=== PATIENT | female | born 1960 | race Caucasian/White ===

== ENCOUNTER 2016-08-18 00:43 | Emergency (ER) | payer OTHER ==
[~2016-08-18] VITALS: Ht 149.9 cm; Wt 68.0 kg
[~2016-08-18 00:43] MED LIST: ASPI81TA44 PO; ATOR10TA60 PO; ATOR40TA59 PO; BISA5TAB4 PO; CEFP200T PO; CEFU500T46 PO; CHOL100013 PO; CHOL4POW2 PO; CYCL10TA2 PO; DILT30TA26 PO; DOXY100C2 PO; FAMO20TA5 PO; FERR325T31 PO; FLUT1DIS3 IH; GLIM2TAB2 PO; HYDR-2666 PO; HYDR-2762 PO; HYDR-971 PO; HYDR12.53 PO; HYDR12.58 PO; INSU100V13 SQ; Ibuprofen PO; LEVO150T PO; LEVO150T5 PO; LEVO200T5 PO; LEVO750T31 PO; METF500T PO; METF500T4 PO; METO50TA2 PO; OMEP40CA5 PO; OXYC5TAB PO; PRAM0.255 PO; PRED20TA PO; PROVENTIL HFA6.7 GM IH; SIMV20TA3 PO
[2016-08-18 01:00] VITALS: BP 129/65
[2016-08-18] MEDS ORDERED: IPRATRPIUM/ALBUTEROL 0.5/2.5MG 3 ML NEBU. NEB ONE ×2 (01:00→01:15)
[2016-08-18 01:29] LABS: BASO % 1 % (0-3); EOS % 3 % (0-3); HEMATOCRIT 36.1 % (36.0-47.0); HEMOGLOBIN 11.6 g/dL (12.0-15.5); LYMPH # 3.7 x10^3/uL (1.0-4.8); LYMPH % 40 % (24-48); MEAN CORPUSCULAR HEMOGLOBIN 26 pg (25-35); MEAN CORPUSCULAR HGB CONC 32 g/dL (31-37); MEAN CORPUSCULAR VOLUME 79 fL (79-100); MONO % 6 % (0-9); NEUT % 51 % (31-73); PLATELET COUNT 259 x10^3/uL (140-400); RED BLOOD COUNT 4.55 x10^6/uL (3.50-5.40); RED CELL DISTRIBUTION WIDTH 14.5 % (11.5-14.5); WHITE BLOOD COUNT 9.2 x10^3/uL (4.0-11.0)
--- NOTE | 2016-08-18 01:33 | PHYS DOC ---
Past Medical History Past Medical History: Anemia, Anxiety, Asthma, COPD, Diabetes-Type II, [place], Stroke Additional Past Medical Histor: Cranial bleed Past Surgical History: Cholecystectomy, , Hysterectomy Additional Past Surgical Histo: IVC filter placed after stroke, Cardiac Cath Alcohol Use: None Drug Use: None Adult General Chief Complaint Chief Complaint: SHORTNESS OF BREATH HPI HPI 56-year-old female presenting to the emergency department today with shortness of breath and wheezing over the past 24 hours. She has history of COPD. She received a breathing treatment prior to arrival. Location lungs. Duration intermittent. Alleviated by nebulizers. No exacerbating factors present. She denies hemoptysis unilateral leg swelling personal or family history of blood clotting disorder. Review of systems is negative for chest pain abdominal pain nausea vomiting diaphoresis fevers chills. All other review of systems is negative unless otherwise noted in history of present illness. Review of Systems Review of Systems SEE ABOVE. Current Medications Current Medications Current Medications Medications (Trade) Dose Ordered Sig/Kyle Start Time Stop Time Status Last Admin Dose Admin Albuterol/ Ipratropium (Duoneb) 3 ml 1X ONCE 08/18/16 01:15 08/18/16 01:17 DC 08/18/16 01:13 3 ML Allergies Allergies Allergies Coded Allergies Type Severity Reaction Last Updated Verified Penicillins Allergy Intermediate Seizure, Rash 06/12/16 Yes aspirin Adverse Reaction Intermediate Nausea 06/12/16 Yes codeine Adverse Reaction Intermediate Nausea 06/12/16 Yes Physical Exam Physical Exam Constitutional: Well developed, well nourished, no acute distress, non-toxic appearance. [] HENT: Normocephalic, atraumatic, bilateral external ears normal, oropharynx moist, no oral exudates, nose normal. [] Eyes: PERRLA, EOMI, conjunctiva normal, no discharge. [] Neck: Normal range of motion, no tenderness, supple, no stridor. [] Cardiovascular:Heart rate regular rhythm, no murmur [] Lungs & Thorax: Wheezing bilaterally. Abdomen: Bowel sounds normal, soft, no tenderness, no masses, no pulsatile masses. [] Skin: Warm, dry, no erythema, no rash. [] Back: No tenderness, no CVA tenderness. [] Extremities: No tenderness, no cyanosis, no clubbing, ROM intact, no edema. [] Neurologic: Alert and oriented X 3, normal motor function, normal sensory function, no focal deficits noted. [] Psychologic: Affect normal, judgement normal, mood normal. [] Current Patient Data Vital Signs Vital Signs Date Time Temp Pulse Resp B/P Pulse Ox O2 Delivery O2 Flow Rate FiO2 08/18/16 01:13 97 Room Air 08/18/16 01:00 98.3 75 20 129/65 98.3 Lab Values Laboratory Tests Test 08/18/16 01:20 White Blood Count 9.2x10^3/uL (4.0-11.0) Red Blood Count 4.55x10^6/uL (3.50-5.40) Hemoglobin 11.6g/dL (12.0-15.5) L Hematocrit 36.1% (36.0-47.0) Mean Corpuscular Volume 79fL (79-100) Mean Corpuscular Hemoglobin 26pg (25-35) Mean Corpuscular Hemoglobin Concent 32g/dL (31-37) Red Cell Distribution Width 14.5% (11.5-14.5) Platelet Count 259x10^3/uL (140-400) Neutrophils (%) (Auto) 51% (31-73) Lymphocytes (%) (Auto) 40% (24-48) Monocytes (%) (Auto) 6% (0-9) Eosinophils (%) (Auto) 3% (0-3) Basophils (%) (Auto) 1% (0-3) Neutrophils # (Auto) 4.6x10^3uL (1.8-7.7) Lymphocytes # (Auto) 3.7x10^3/uL (1.0-4.8) Monocytes # (Auto) 0.5x10^3/uL (0.0-1.1) Eosinophils # (Auto) 0.3x10^3/uL (0.0-0.7) Basophils # (Auto) 0.0x10^3/uL (0.0-0.2) Sodium Level 142mmol/L (136-145) Potassium Level 3.2mmol/L (3.5-5.1) L Chloride Level 104mmol/L (98-107) Carbon Dioxide Level 26mmol/L (21-32) Anion Gap 12 (6-14) Blood Urea Nitrogen 15mg/dL (7-20) Creatinine 0.8mg/dL (0.6-1.0) Estimated GFR (Cockcroft-Gault) 74.5 Glucose Level 144mg/dL (70-99) H Calcium Level 8.6mg/dL (8.5-10.1) Total Bilirubin 0.4mg/dL (0.2-1.0) Direct Bilirubin 0.2mg/dL (0.0-0.2) Aspartate Amino Transferase (AST) 12U/L (15-37) L Alanine Aminotransferase (ALT) 17U/L (14-59) Alkaline Phosphatase 96U/L (46-116) Troponin I Quantitative < 0.017ng/mL (0.000-0.055) DU-Ylc-U-Type Natriuretic Peptide 16pg/mL (0-124) Total Protein 7.4g/dL (6.4-8.2) Albumin 3.7g/dL (3.4-5.0) Lipase 144U/L (73-393) Laboratory Tests 08/18/16 01:20 Laboratory Tests 08/18/16 01:20 EKG EKG [] Radiology/Procedures Radiology/Procedures [] Chest x-ray showed mild blurring of the right cardiac border suggestive of infiltrate. Course & Med Decision Making Course & Med Decision Making Pertinent Labs and Imaging studies reviewed. (See chart for details) [] 56-year-old female presenting the emergency department with wheezing and shortness of breath. Afebrile with a normal heart rate. She was given duo nebs in the emergency department which improved her symptoms. She was subsequent discharged home with steroids and abx and instructed to use her inhaler as needed. Follow up with PCP in 2-3 days. [id number] discharge instructions and return precautions given. Patient comfortable plan. Dragon Disclaimer Dragon Disclaimer This electronic medical record was generated, in whole or in part, using a voice recognition dictation system. Departure Departure Impression: Primary Impression: COPD exacerbation Disposition: HOME, SELF-CARE Condition: STABLE Referrals: RANJIT MONAE MD (PCP) Patient Instructions: Chronic Obstructive Pulmonary Disease Exacerbation Additional Instructions: Thank you for allowing us to participate in your care today. Followup with your primary care physician in 3 days if your symptoms do not improve. If you do not have a primary care provider you can ask for a list of our primary care providers. Return to the emergency department you have any new or concerning findings. This should be evaluated by the primary care physician and any necessary consulting services for continued management within a few days after discharge. Return to emergency room if you have any new or concerning symptoms including but not limited to fever, chills, nausea, vomiting, intractable pain, any new rashes, chest pain, shortness of air, uncontrolled bleeding, difficulty breathing, and/or vision loss. You may have been prescribed medication that can change in your level of thinking and ability to operate machinery. These medications include hydrocodone and Ativan. Also, Benadryl has been known to do this as well. Be sure to check with your pharmacist and ask if the medications you've prescribed can affect your level of consciousness. I recommend not operating heavy machinery or driving while on medication such as these. Scripts Azithromycin (Azithromycin Tablet)250 Mg Tablet1 Pkg PO UD #6 TAB Prov:SE KEY MD 08/18/16 Prednisone 50 Mg [id number] Mg PO DAILY #5 TAB Prov:SE KEY MD 08/18/16 SE KEY MD Aug 18, 2016 01:33
[2016-08-18 01:50] LABS: CALCIUM 8.6 mg/dL (8.5-10.1); CREATININE 0.8 mg/dL (0.6-1.0); GFR 74.5; POTASSIUM 3.2 mmol/L (3.5-5.1)
[2016-08-18 02:04] LABS: ALBUMIN 3.7 g/dL (3.4-5.0); DIRECT BILIRUBIN 0.2 mg/dL (0.0-0.2); TOTAL BILIRUBIN 0.4 mg/dL (0.2-1.0); TOTAL PROTEIN 7.4 g/dL (6.4-8.2)
[2016-08-18] MEDS ORDERED: AZIT250T6 PO (02:58)
[2016-08-18] MEDS ORDERED: PRED50TA PO (02:58)
[2016-08-18] MEDS ORDERED: LIDOCAINE 1% / SOD BICARB 8.4% 20 ML VIAL. IJ ONE (03:30)
--- NOTE | 2016-08-18 06:15 | EKG ---
[facility] [address] [place] [address] Test Date: 2016-08-18 Test Time: 01:01:20 Pat Name: ALLISON CLIFTON Department: Room: Gender: F Entry Level Account Executive: : 1960 Requested By: SE KEY Order Number: [id number] Reading MD: Measurements Intervals [place] Rate: 78 P: 34 [place]: 194 QRS: 14 QRSD: 86 T: 45 QT: 382 QTc: 439 Interpretive Statements SINUS RHYTHM QRS(T) CONTOUR ABNORMALITY CONSIDER ANTEROLATERAL MYOCARDIAL DAMAGE POSSIBLY ABNORMAL ECG RI6.01 No previous ECG available for comparison
--- NOTE | 2016-08-18 07:13 | RAD ---
Portable chest, 08/18/2016: History: Shortness of breath, chest pain Comparison is made to a study from 03/17/2016. The heart size and pulmonary vascularity are normal. The patient is rotated to the right. There is a retrocardiac mass compatible with a small hiatal hernia. No pulmonary infiltrates are seen. There is no evidence of pleural fluid. IMPRESSION: 1. Small hiatal hernia. 2. No acute cardiopulmonary abnormality is detected.
== END 2016-08-18 04:58 | disposition home or self-care (01) ==
LOC: ER 00:43
DX: J44.1 Chronic obstructive pulmonary disease with (acute) exacerbation (principal); E11.9 Type 2 diabetes mellitus without complications; J45.909 Unspecified asthma, uncomplicated; F41.9 Anxiety disorder, unspecified; Z86.73 Personal history of transient ischemic attack (TIA), and cerebral infarction without residual deficits; Z86.2 Personal history of diseases of the blood and blood-forming organs and certain disorders involving the immune mechanism; Z86.69 Personal history of other diseases of the nervous system and sense organs; Z90.49 Acquired absence of other specified parts of digestive tract; Z90.710 Acquired absence of both cervix and uterus; Z98.890 Other specified postprocedural states; Z88.0 Allergy status to penicillin; Z88.6 Allergy status to analgesic agent; Z88.5 Allergy status to narcotic agent
CPT/HCPCS: 36415; 71010; 80048; 80076; 83690; 83880; 84484; 85027; 93005; 94250; 94640; 99285; J7620

== ENCOUNTER → 2016-11-07 | Outpatient (CLI) | payer OTHER ==
[2016-09-02 14:20] VITALS: BP 129/67
[~2016-11-07] MED LIST changes: +AZIT250T6 PO; +FERR-36 PO; -FERR325T31 PO; -HYDR-2666 PO; +HYDR-2758 PO; +LEVO75TA5 PO; +PRED50TA PO; +SYNT
--- NOTE | 2016-11-07 13:30 | RAD ---
Indication: Abdominal pain and constipation. Axial imaging through the pelvis was performed without contrast. Sagittal and coronal reformations were also performed. There appears to be a midline fat-containing hernia. There is an IVC filter noted within the IVC just below the level of the renal veins. The aorta is calcified but nonaneurysmal. There is a tiny fat-containing umbilical hernia. The small and large bowel loops are normal caliber. No free fluid is detected. The bladder is unremarkable. No lymphadenopathy is seen. Impression: Midline ventral hernia containing fat as well as small fat-containing umbilical hernia. The study is otherwise unremarkable. PQRS Compliance Statement: One or more of the following individualized dose reduction techniques were utilized for this examination: 1. Automated exposure control 2. Adjustment of the mA and/or kV according to patient size 3. Use of iterative reconstruction technique
== END | disposition home or self-care (01) ==
LOC: CT 10:50
PROVIDERS: ATTEND Internal Medicine
DX: K59.00 Constipation, unspecified (principal); K43.9 Ventral hernia without obstruction or gangrene; K42.9 Umbilical hernia without obstruction or gangrene
CPT/HCPCS: 72192

== ENCOUNTER 2016-11-17 07:22 | Inpatient (IN) | payer OTHER ==
[~2016-11-17] VITALS: Ht 149.9 cm; Wt 68.0 kg
[2016-11-17] MEDS ORDERED: IPRATRPIUM/ALBUTEROL 0.5/2.5MG 3 ML NEBU. NEB ONE (07:30)
[2016-11-17] MEDS ORDERED: methylPREDNISolone SOD SUCC PF 125 MG/2 ML VIAL. IV ONE (07:30)
--- NOTE | 2016-11-17 07:34 | ED.ADGEN ---
Past Medical History Past Medical History: Anemia, Anxiety, Asthma, COPD, Diabetes-Type II, [place], Stroke Additional Past Medical Histor: Cranial bleed Past Surgical History: Cholecystectomy, , Hysterectomy Additional Past Surgical Histo: IVC filter placed after stroke, Cardiac Cath Alcohol Use: None Drug Use: None Adult General Chief Complaint Chief Complaint: SHORTNESS OF BREATH HPI HPI Patient is a 56 year old woman, history of hemorrhagic stroke, type 2 diabetes mellitus, hypertension, COPD, CAD, who presents to the emergency department via EMS from her nursing facility with a complaint of shortness of breath and wheezing. Patient states that she became short of breath yesterday, 2-3 today with family. She states that the symptoms are consistent with her typical COPD exacerbations. She stated she takes prednisone daily, and also breathing treatments daily. Her last nebulizer treatment at the facility was at 4:00 this morning, she states it was not helping, so EMS was called this morning, and they will administered a DuoNeb en route to the ED. Patient states that she is having some chest tightness which is consistent with her typical COPD symptoms. She denies any fevers or chills, any nausea or vomiting, any chest pain with radiation, any weakness, numbness, tingling, sick contacts or exposures. She states that she does have a cough that is productive of the morning, but there is no change from her typical symptoms. No swelling of the extremities. No recent antibiotic use. Patient's central office repairer is Dr. Dutta. Review of Systems Review of Systems Constitutional: Denies fever or chills. [] Eyes: Denies change in visual acuity. [] HENT: Denies nasal congestion or sore throat. [] Respiratory: Shortness of breath, cough productive of white sputum. Cardiovascular: Chest tightness, with cough, no edema.] GI: Denies abdominal pain, nausea, vomiting, bloody stools or diarrhea. [] : Denies dysuria. [] Musculoskeletal: Denies back pain or joint pain. [] Integument: Denies rash. [] Neurologic: Denies headache, focal weakness or sensory changes. [] Endocrine: Denies polyuria or polydipsia. [] Lymphatic: Denies swollen glands. [] Psychiatric: Denies depression or anxiety. [] Current Medications Current Medications Current Medications Medications (Trade) Dose Ordered Sig/Kyle Start Time Stop Time Status Last Admin Dose Admin Albuterol/ Ipratropium (Duoneb) 3 ml 1X ONCE 11/17/16 07:30 11/17/16 07:33 DC 11/17/16 07:54 3 ML Methylprednisolone Sodium Succinate (SOLU-Medrol 125MG VIAL) 125 mg 1X ONCE 11/17/16 07:30 11/17/16 07:33 DC 11/17/16 08:27 125 MG Allergies Allergies Allergies Coded Allergies Type Severity Reaction Last Updated Verified Penicillins Allergy Intermediate Seizure, Rash 06/12/16 Yes I S O L A T I O N *CONTACT* Allergy Unknown 09/01/16 Yes aspirin Adverse Reaction Intermediate Nausea 06/12/16 Yes codeine Adverse Reaction Intermediate Nausea 06/12/16 Yes Physical Exam Physical Exam Constitutional: Well developed, well nourished, no acute distress, non-toxic appearance. [] HENT: Normocephalic, atraumatic, bilateral external ears normal, oropharynx moist, no oral exudates, nose normal. [] Eyes: PERRLA, EOMI, conjunctiva normal, no discharge. [] Neck: Normal range of motion, no tenderness, supple, no stridor. [] Cardiovascular:Heart rate regular rhythm, no murmur, S1, S2, no rubs or gallops. [] Lungs & Thorax: Patient with scattered wheezing and coarse breath sounds noted bilaterally throughout the lung hayes. No chest or crepitus or tenderness. [] Abdomen: Bowel sounds normal, soft, no rebound, rigidity, no guarding, no tenderness, no masses, no pulsatile masses. [] Skin: Warm, dry, no erythema, no rash. [] Back: No tenderness, no CVA tenderness. [] Extremities: No tenderness, no cyanosis, no clubbing, ROM intact, no edema. Negative Homans sign. Mild muscle wasting noted in lower extremity. [] Neurologic: Alert and oriented X 3, normal motor function, normal sensory function, no focal deficits noted. [] Psychologic: Affect normal, judgement normal, mood normal. [] Current Patient Data Vital Signs Vital Signs Date Time Temp Pulse Resp B/P (MAP) Pulse Ox O2 Delivery O2 Flow Rate FiO2 11/17/16 08:24 70 16 106/66 (79) 95 Room Air 11/17/16 07:34 98.3 98.3 Lab Values Laboratory Tests Test 11/17/16 08:10 White Blood Count 7.4 x10^3/uL (4.0-11.0) Red Blood Count 3.95 x10^6/uL (3.50-5.40) Hemoglobin 10.2 g/dL (12.0-15.5) L Hematocrit 30.9 % (36.0-47.0) L Mean Corpuscular Volume 78 fL (79-100) L Mean Corpuscular Hemoglobin 26 pg (25-35) Mean Corpuscular Hemoglobin Concent 33 g/dL (31-37) Red Cell Distribution Width 15.9 % (11.5-14.5) H Platelet Count 260 x10^3/uL (140-400) Neutrophils (%) (Auto) 50 % (31-73) Lymphocytes (%) (Auto) 41 % (24-48) Monocytes (%) (Auto) 6 % (0-9) Eosinophils (%) (Auto) 2 % (0-3) Basophils (%) (Auto) 1 % (0-3) Neutrophils # (Auto) 3.7 x10^3uL (1.8-7.7) Lymphocytes # (Auto) 3.0 x10^3/uL (1.0-4.8) Monocytes # (Auto) 0.5 x10^3/uL (0.0-1.1) Eosinophils # (Auto) 0.1 x10^3/uL (0.0-0.7) Basophils # (Auto) 0.0 x10^3/uL (0.0-0.2) Sodium Level 144 mmol/L (136-145) Potassium Level 3.5 mmol/L (3.5-5.1) Chloride Level 106 mmol/L (98-107) Carbon Dioxide Level 28 mmol/L (21-32) Anion Gap 10 (6-14) Blood Urea Nitrogen 14 mg/dL (7-20) Creatinine 0.8 mg/dL (0.6-1.0) Estimated GFR (Cockcroft-Gault) 74.5 BUN/Creatinine Ratio 18 (6-20) Glucose Level 123 mg/dL (70-99) H Calcium Level 7.8 mg/dL (8.5-10.1) L Total Bilirubin 0.3 mg/dL (0.2-1.0) Aspartate Amino Transferase (AST) 14 U/L (15-37) L Alanine Aminotransferase (ALT) 15 U/L (14-59) Alkaline Phosphatase 70 U/L (46-116) Troponin I Quantitative < 0.017 ng/mL (0.000-0.055) XZ-Ezo-G-Type Natriuretic Peptide 55 pg/mL (0-124) Total Protein 6.6 g/dL (6.4-8.2) Albumin 3.5 g/dL (3.4-5.0) Albumin/Globulin Ratio 1.1 (1.0-1.7) Laboratory Tests 11/17/16 08:10 Laboratory Tests 11/17/16 08:10 EKG EKG EC: Sinus rhythm, heart rate 72 beats are minute, upright axis, QTC of 418, MI of 200, QRS of 84, T-wave flattening noted with Q waves in lead 3, to flattening noted in V3, no ST elevations or depressions, abnormal ECG, does not meet STEMI criteria. As interpreted by me. Radiology/Procedures Radiology/Procedures [][facility] [address] [place] [address] IMAGING REPORT Signed PATIENT: ALLISON CLIFTON ACCOUNT: [id number] : 1960 LOCATION: ER AGE: 56 SEX: F EXAM STATUS: PRE ER ORD. PHYSICIAN: BRIAN CARBONE DO REASON: SOB PROCEDURE: PORTABLE CHEST 1V Portable chest, 2016: History: Shortness of breath Comparison is made to a study from 08/29/2016. The patient is rotated to the right. The heart is at the upper limits of normal in size. The pulmonary vascularity is normal. No pulmonary consolidation is seen. There is no evidence of pleural fluid. IMPRESSION: 1. Borderline cardiomegaly. 2. No acute abnormality is detected. DICTATED and SIGNED BY: JOSSELIN GUO MD DATE: 11/17/16 0739 CC: BRIAN CARBONE DO; RANJIT MONAE MD ~ Course & Med Decision Making Course & Med Decision Making Pertinent Labs and Imaging studies reviewed. (See chart for details) Patient received a DuoNeb in the ED, her second that she received this morning, with some improvement of symptoms, although she states she remains "wheezy". Oxygen saturation 91-93% on room air, laboratory studies do not reveal evidence of acutely concerning findings. Chest x-ray doesn't reveal evidence of infiltrate or effusion. Patient received Solu-Medrol in the ED, was initiated on a hour-long treatment. As patient has exhibited failure of outpatient management of her COPD with exacerbation, she is agreeable for admission to the hospital or evaluation by pulmonary with Dr. Dutta, and he needed management and monitoring. Findings as above discussed with Dr. Sparrow of internal medicine , patient accepted to his service as a full admission to the medical telemetry floor, with bridge orders entered per discussion. Dragon Disclaimer Dragon Disclaimer This electronic medical record was generated, in whole or in part, using a voice recognition dictation system. Departure Impression: Primary Impression: COPD exacerbation Disposition: ADMITTED INPATIENT Admitting Physician: Antoinetta Sparrow Condition: IMPROVED BRIAN CARBONE DO Nov 17, 2016 07:34
--- NOTE | 2016-11-17 07:43 | RAD ---
Portable chest, 2016: History: Shortness of breath Comparison is made to a study from 08/29/2016. The patient is rotated to the right. The heart is at the upper limits of normal in size. The pulmonary vascularity is normal. No pulmonary consolidation is seen. There is no evidence of pleural fluid. IMPRESSION: 1. Borderline cardiomegaly. 2. No acute abnormality is detected.
[2016-11-17 08:26] LABS: BASO % 1 % (0-3); EOS % 2 % (0-3); HEMATOCRIT 30.9 % (36.0-47.0); HEMOGLOBIN 10.2 g/dL (12.0-15.5); LYMPH % 41 % (24-48); MEAN CORPUSCULAR HEMOGLOBIN 26 pg (25-35); MEAN CORPUSCULAR HGB CONC 33 g/dL (31-37); MEAN CORPUSCULAR VOLUME 78 fL (79-100); MONO % 6 % (0-9); NEUT % 50 % (31-73); PLATELET COUNT 260 x10^3/uL (140-400); RED BLOOD COUNT 3.95 x10^6/uL (3.50-5.40); RED CELL DISTRIBUTION WIDTH 15.9 % (11.5-14.5); WHITE BLOOD COUNT 7.4 x10^3/uL (4.0-11.0)
--- NOTE | 2016-11-17 08:29 | EKG ---
[facility] [address] [place] [address] Test Date: 2016-11-17 Test Time: 07:55:34 Pat Name: ALLISON CLIFTON Department: Room: Gender: F Slag Expander: : 1960 Requested By: BRIAN CARBONE Order Number: [id number] Reading MD: Taylor Ramsay Measurements Intervals [place] Rate: 72 P: 34 [place]: 200 QRS: 14 QRSD: 84 T: 33 QT: 380 QTc: 418 Interpretive Statements SINUS RHYTHM NON SPECIFIC T ABNORMALITY Electronically Signed On 11-20-2016 21:20:03 CDT by Taylor Ramsay
[2016-11-17 08:36] LABS: CALCIUM 7.8 mg/dL (8.5-10.1); CREATININE 0.8 mg/dL (0.6-1.0); GFR 74.5; POTASSIUM 3.5 mmol/L (3.5-5.1)
[2016-11-17 08:41] LABS: ALBUMIN 3.5 g/dL (3.4-5.0); ALBUMIN/GLOBULIN RATIO 1.1 (1.0-1.7); TOTAL BILIRUBIN 0.3 mg/dL (0.2-1.0); TOTAL PROTEIN 6.6 g/dL (6.4-8.2)
[2016-11-17] MEDS ORDERED: ALBUTEROL SULFATE 2.5 MG/3 ML NEBU. CONT NEB ONE (09:15)
[2016-11-17] MEDS ORDERED: DEXTROSE 50% 25 GM / 50ML DISP.SYRIN. IV PRN (09:30)
[2016-11-17] MEDS ORDERED: ACETAMINOPHEN 325 MG TABLET. PO PRN (09:30)
[2016-11-17] MEDS ORDERED: ONDANSETRON PF 4 MG/2 ML VIAL. IV PRN (09:30)
[2016-11-17 10:18] VITALS: BP 116/66
[2016-11-17] MEDS ORDERED: ALBUTEROL SULFATE 2.5 MG/3 ML NEBU. NEB PRN (10:30)
[2016-11-17] MEDS ORDERED: FLUT1DIS3 IH (10:36)
[2016-11-17] MEDS ORDERED: TEMA15CA PO (10:36)
[2016-11-17] MEDS ORDERED: DOCU-109 PO (10:36)
[2016-11-17] MEDS ORDERED: MONT10TA9 PO (10:36)
[2016-11-17] MEDS ORDERED: LEVO125T5 PO (10:36)
[2016-11-17] MEDS ORDERED: SENN8.6T99 PO (10:36)
[2016-11-17] MEDS ORDERED: ALBU2.5V5 NEB (10:38)
[2016-11-17] MEDS: dilTIAZem HCL 30 MG TABLET PO SCH ×3 (11:00→21:00)
[2016-11-17] MEDS: ASPIRIN CHEWABLE 81 MG TABLET. PO SCH (11:09)
[2016-11-17] MEDS: DOCUSATE SODIUM 100 MG CAPSULE. PO SCH ×2 (11:26→22:52)
[2016-11-17] MEDS: PANTOPRAZOLE 40 MG TABLET.DR. PO SCH (11:26)
[2016-11-17] MEDS: SENNOSIDES 8.6 MG TABLET PO SCH ×2 (11:26→22:53)
[2016-11-17] MEDS: CHOLESTYRAMINE/ASPARTAME 4 GM PACKET PO SCH ×2 (11:26→13:47)
[2016-11-17] MEDS: HYDROcodone/APAP 7.5/325MG 1 TAB TABLET PO PRN (11:29)
[2016-11-17] MEDS ORDERED: ALBUTEROL SULFATE 2.5 MG/3 ML NEBU. NEB SCH (12:00)
[2016-11-17] MEDS ORDERED: IPRATRPIUM/ALBUTEROL 0.5/2.5MG 3 ML NEBU. NEB SCH (12:00)
[2016-11-17] MEDS: BUDESONIDE 0.5 MG/2 ML NEBU. NEB SCH ×2 (12:03→20:08)
[2016-11-17] MEDS: INSULIN ASPART 300 UNITS/3 ML INSULN.PEN SQ SCH ×2 (12:31→17:27)
--- NOTE | 2016-11-17 12:46 | PDOC2 ---
CONSULT Date of Consult Date of Consult DATE: 11/17/16 TIME: 12:38 Reason for Consult Reason for Consult: SOA Referring Physician Referring Physician: DR SÁNCHEZ Identification/Chief Complaint Chief Complaint SOA Problems: History of Present Illness Reason for Visit: Patient is a 56 year old woman, history of hemorrhagic stroke, type 2 diabetes mellitus, hypertension, COPD, CAD, who presents to the emergency department via EMS from her nursing facility with a complaint of shortness of breath and wheezing. Patient states that she became short of breath yesterday, She states that the symptoms are consistent with her typical COPD exacerbations. She stated she takes prednisone daily, and also breathing treatments daily. Her last nebulizer treatment at the facility was at 4:00 this morning, she states it was not helping, so EMS was called this morning, and they will administered a DuoNeb en route to the ED. Patient states that she is having some chest tightness which is consistent with her typical COPD symptoms. She denies any fevers or chills, any nausea or vomiting, any chest pain with radiation, any weakness, numbness, tingling, sick contacts or exposures. She states that she does have a cough that is productive of yellow sputum. No swelling of the extremities. No recent antibiotic use. 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 Dutta. Past Medical History Cardiovascular: HTN Pulmonary: Asthma, COPD CENTRAL NERVOUS SYSTEM: CVA GI: Other Heme/Onc: Anemia NOS Musculoskeletal: Other Endocrine: Diabetes Past Surgical History Past Surgical History: , Hysterectomy Family History Family History: Coronary Artery Disease, Diabetes Social History # pack years (30) ALCOHOL: none Drugs: None Lives: Alone Current Problem List Problem List Problems Medical Problems: (1) COPD exacerbation Status: Acute Current Medications Current Medications Current Medications Albuterol/ Ipratropium (Duoneb) 3 ml 1X ONCE NEB Last administered on 07:54; Start 11/17/16 at 07:30; Stop 11/17/16 at 07:33; Status DC Methylprednisolone Sodium Succinate (SOLU-Medrol 125MG VIAL) 125 mg 1X ONCE IV Last administered on 11/17/16 08:27; Start 11/17/16 at 07:30; Stop 11/17/16 at 07:33; Status DC Albuterol Sulfate (Ventolin Neb Soln) 10 mg 1X ONCE CONT NEB Last administered on 11/17/16 09:22; Start 11/17/16 at 09:15; Stop 11/17/16 at 09:16 ; Status DC Ondansetron HCl (Zofran) 4 mg PRN Q8HRS PRN IV NAUSEA/VOMITING; Start 11/17/16 at 09:30; Stop 11/18/16 at 09:29 Acetaminophen (Tylenol) 650 mg PRN Q4HRS PRN PO FEVER; Start 11/17/16 at 09:30 ; Stop 11/18/16 at 09:29 Albuterol/ Ipratropium (Duoneb) 3 ml RTQID NEB Last administered on 11/17/16 12:05; Start 11/17/16 at 12:00; Stop 11/18/16 at 11:59 Insulin Aspart (NovoLOG) 0-5 UNITS TIDWMEALS SQ Last administered on 11/17/16 12:31; Start 11/17/16 at 12:00 Dextrose (Dextrose 50%-Water Syringe) 12.5 gm PRN Q15MIN PRN IV SEE COMMENTS; Start 11/17/16 at 09:30 Methylprednisolone Sodium Succinate (SOLU-Medrol 40MG VIAL) 40 mg Q12HR IV ; Start 11/17/16 at 21:00 Albuterol Sulfate (Ventolin Neb Soln) 2.5 mg PRN Q4HRS PRN NEB SHORTNESS OF BREATH; Start 11/17/16 at 10:30 Aspirin (Children'S Aspirin) 81 mg DAILYWBKFT PO ; Start 11/17/16 at 12:00 Atorvastatin Calcium (Lipitor) 10 mg HS PO ; Start 11/17/16 at 21:00 Diltiazem HCl (Cardizem) 30 mg TID PO ; Start 11/17/16 at 11:00 Docusate Sodium (Colace) 100 mg BID PO ; Start 11/17/16 at 11:30 Acetaminophen/ Hydrocodone Bitart (Lortab 7.5/325) 1 tab PRN Q6HRS PRN PO PAIN Last administered on 11/17/16 11:29; Start 11/17/16 at 10:30 Levothyroxine Sodium (Synthroid) 125 mcg DAILY07 PO ; Start 11/17/16 at 15:30 Montelukast Sodium (Singulair) 10 mg HS PO ; Start 11/17/16 at 21:00 Sennosides (Senna) 8.6 mg BID PO ; Start 11/17/16 at 11:30 Temazepam (Restoril) 15 mg QHS PO ; Start 11/17/16 at 21:00 Cholestyramine Resin (Questran Light) 4 gm BID92 PO ; Start 11/17/16 at 11:30 Non-Formulary Medication 1 puff DAILY IH ; Start 11/18/16 at 09:00; Stop at 09:00; Status DC Pantoprazole Sodium (Protonix) 40 mg DAILYAC PO ; Start 11/17/16 at 11:30 Albuterol Sulfate (Ventolin Neb Soln) 2.5 mg Q6HRS NEB ; Start 11/17/16 at 12:00 ; Stop 11/17/16 at 12:00; Status DC Budesonide (Pulmicort) 0.5 mg RTBID NEB Last administered on 11/17/16t 12:03; Start 11/17/16 at 11:30 Active Scripts Active Hydrocodone-Apap 7.5-325 (Hydrocodone Bit/Acetaminophen) 1 Each Tablet 1 Tab PO PRN Q6HRS PRN Gave dose at 3:45 May take again after 9:45 Cholestyramine Packet (Cholestyramine (With Sugar)) 4 Gm Powd.pack 4 Gm PO BID92 Cardizem Tablet (Diltiazem Hcl) 30 Mg Tablet 30 Mg PO TID Children's Aspirin (Aspirin) 81 Mg Tab.chew 81 Mg PO DAILYWBKFT Reported Albuterol Sulfate Neb Soln (Albuterol Sulfate) 2.5 Mg/3 Ml Vial.neb 1 Vial NEB PRN Q4HRS Temazepam 15 Mg Capsule 1 Cap PO QHS Montelukast Sodium Tablet (Montelukast Sodium) 10 Mg Tablet 1 Tab PO HS Senokot (Sennosides) 8.6 Mg Tablet 1 Tab PO BID Levothyroxine Sodium 125 Mcg Tablet 1 Tab PO DAILY Colace (Docusate Sodium) 100 Mg Capsule 1 Cap PO BID Advair 250-50 Diskus (Fluticasone/Salmeterol) 1 Each Disk.w.dev 1 Puff IH DAILY Atorvastatin Calcium 10 Mg Tablet 10 Mg PO HS Omeprazole 40 Mg Capsule.dr 1 Cap PO DAILY Proventil Hfa Inhaler (Albuterol Sulfate) 6.7 Gm Hfa.aer.ad 1 Puff IH PRN Q4HRS PRN Allergies Allergies: Coded Allergies: Penicillins (Verified Allergy, Intermediate, Seizure, Rash, 06/12/16) I S O L A T I O N *CONTACT* (Verified Allergy, Unknown, 09/01/16) mrsa aspirin (Verified Adverse Reaction, Intermediate, Nausea, 06/12/16) codeine (Verified Adverse Reaction, Intermediate, Nausea, 06/12/16) ROS Review of System Review of Systems Review of Systems Constitutional: Denies fever or chills. [] Eyes: Denies change in visual acuity. [] HENT: Denies nasal congestion or sore throat. [] Respiratory: Shortness of breath, cough productive of white/ yellow sputum. Cardiovascular: Chest tightness, with cough, no edema.] GI: Denies abdominal pain, nausea, vomiting, bloody stools or diarrhea. [] : Denies dysuria. [] Musculoskeletal: Denies back pain or joint pain. [] Integument: Denies rash. [] Neurologic: Denies headache, focal weakness or sensory changes. [] Endocrine: Denies polyuria or polydipsia. [] Lymphatic: Denies swollen glands. [] Psychiatric: Denies depression or anxiety. [] Physical Exam General: Alert, No acute distress HEENT: Atraumatic Lungs: Other (diffuse wheezing) Heart: Regular rate, Normal S1 Abdomen: Normal bowel sounds, Soft Extremities: No clubbing, No cyanosis, Other (trace edema) Neuro: Normal gait Psych/Mental Status: Mental status NL Vitals VITALS Vital Signs Date Time Temp Pulse Resp B/P (MAP) Pulse Ox O2 Delivery O2 Flow Rate FiO2 11/17/16 12:31 98 2.0 11/17/16 12:14 Nasal Cannula 11/17/16 11:00 68 116/66 11/17/16 10:18 97.7 20 97.7 Labs Labs Laboratory Tests Test 11/17/16 08:10 11/17/16 11:44 White Blood Count 7.4 x10^3/uL (4.0-11.0) Red Blood Count 3.95 x10^6/uL (3.50-5.40) Hemoglobin 10.2 g/dL (12.0-15.5) Hematocrit 30.9 % (36.0-47.0) Mean Corpuscular Volume 78 fL (79-100) Mean Corpuscular Hemoglobin 26 pg (25-35) Mean Corpuscular Hemoglobin Concent 33 g/dL (31-37) Red Cell Distribution Width 15.9 % (11.5-14.5) Platelet Count 260 x10^3/uL (140-400) Neutrophils (%) (Auto) 50 % (31-73) Lymphocytes (%) (Auto) 41 % (24-48) Monocytes (%) (Auto) 6 % (0-9) Eosinophils (%) (Auto) 2 % (0-3) Basophils (%) (Auto) 1 % (0-3) Neutrophils # (Auto) 3.7 x10^3uL (1.8-7.7) Lymphocytes # (Auto) 3.0 x10^3/uL (1.0-4.8) Monocytes # (Auto) 0.5 x10^3/uL (0.0-1.1) Eosinophils # (Auto) 0.1 x10^3/uL (0.0-0.7) Basophils # (Auto) 0.0 x10^3/uL (0.0-0.2) Sodium Level 144 mmol/L (136-145) Potassium Level 3.5 mmol/L (3.5-5.1) Chloride Level 106 mmol/L (98-107) Carbon Dioxide Level 28 mmol/L (21-32) Anion Gap 10 (6-14) Blood Urea Nitrogen 14 mg/dL (7-20) Creatinine 0.8 mg/dL (0.6-1.0) Estimated GFR (Cockcroft-Gault) 74.5 BUN/Creatinine Ratio 18 (6-20) Glucose Level 123 mg/dL (70-99) Calcium Level 7.8 mg/dL (8.5-10.1) Total Bilirubin 0.3 mg/dL (0.2-1.0) Aspartate Amino Transf (AST/SGOT) 14 U/L (15-37) Alanine Aminotransferase (ALT/SGPT) 15 U/L (14-59) Alkaline Phosphatase 70 U/L (46-116) Troponin I Quantitative < 0.017 ng/mL (0.000-0.055) LR-Xct-H-Type Natriuretic Peptide 55 pg/mL (0-124) Total Protein 6.6 g/dL (6.4-8.2) Albumin 3.5 g/dL (3.4-5.0) Albumin/Globulin Ratio 1.1 (1.0-1.7) Glucose (Fingerstick) 174 mg/dL (70-99) Laboratory Tests Test 11/17/16 08:10 11/17/16 11:44 White Blood Count 7.4 x10^3/uL (4.0-11.0) Red Blood Count 3.95 x10^6/uL (3.50-5.40) Hemoglobin 10.2 g/dL (12.0-15.5) Hematocrit 30.9 % (36.0-47.0) Mean Corpuscular Volume 78 fL (79-100) Mean Corpuscular Hemoglobin 26 pg (25-35) Mean Corpuscular Hemoglobin Concent 33 g/dL (31-37) Red Cell Distribution Width 15.9 % (11.5-14.5) Platelet Count 260 x10^3/uL (140-400) Neutrophils (%) (Auto) 50 % (31-73) Lymphocytes (%) (Auto) 41 % (24-48) Monocytes (%) (Auto) 6 % (0-9) Eosinophils (%) (Auto) 2 % (0-3) Basophils (%) (Auto) 1 % (0-3) Neutrophils # (Auto) 3.7 x10^3uL (1.8-7.7) Lymphocytes # (Auto) 3.0 x10^3/uL (1.0-4.8) Monocytes # (Auto) 0.5 x10^3/uL (0.0-1.1) Eosinophils # (Auto) 0.1 x10^3/uL (0.0-0.7) Basophils # (Auto) 0.0 x10^3/uL (0.0-0.2) Sodium Level 144 mmol/L (136-145) Potassium Level 3.5 mmol/L (3.5-5.1) Chloride Level 106 mmol/L (98-107) Carbon Dioxide Level 28 mmol/L (21-32) Anion Gap 10 (6-14) Blood Urea Nitrogen 14 mg/dL (7-20) Creatinine 0.8 mg/dL (0.6-1.0) Estimated GFR (Cockcroft-Gault) 74.5 BUN/Creatinine Ratio 18 (6-20) Glucose Level 123 mg/dL (70-99) Calcium Level 7.8 mg/dL (8.5-10.1) Total Bilirubin 0.3 mg/dL (0.2-1.0) Aspartate Amino Transf (AST/SGOT) 14 U/L (15-37) Alanine Aminotransferase (ALT/SGPT) 15 U/L (14-59) Alkaline Phosphatase 70 U/L (46-116) Troponin I Quantitative < 0.017 ng/mL (0.000-0.055) BO-Onl-I-Type Natriuretic Peptide 55 pg/mL (0-124) Total Protein 6.6 g/dL (6.4-8.2) Albumin 3.5 g/dL (3.4-5.0) Albumin/Globulin Ratio 1.1 (1.0-1.7) Glucose (Fingerstick) 174 mg/dL (70-99) Images Images CXR mild interstitial prominence cardiomegaly Assessment/Plan Assessment/Plan 1. Dyspnea due to AECOPD 2. Diffuse bronchospasm ,due to AECOPD, cannot exclude mild acute diastolic HF 3. h/o oxygen dependant COPD 4. h/o grade II diastolic dysfunction 5. Acute bronchitis PLAN 1.Nebs q 4 hr/ add pulmicort 2.IV steroids 3.trial of diuresis 4.Empiric antibiotic 5. oxygen BRIAN ALLEN MD Nov 17, 2016 12:46
[2016-11-17] MEDS: FUROSEMIDE 40 MG/4 ML VIAL. IVP ONE ×2 (13:49→14:08)
[2016-11-17] MEDS: methylPREDNISolone SOD SUCC PF 125 MG/2 ML VIAL. IV SCH ×2 (14:08→23:07)
[2016-11-17 15:00] VITALS: BP 122/76
[2016-11-17] MEDS: LEVOTHYROXINE 125 MCG TABLET PO SCH (15:22)
[2016-11-17] MEDS: IPRATRPIUM/ALBUTEROL 0.5/2.5MG 3 ML NEBU. NEB SCH ×3 (16:28→23:18)
[2016-11-17 19:35] VITALS: BP 93/48
[2016-11-17] MEDS ORDERED: methylPREDNISolone SOD SUCC PF 40 MG/ML VIAL. IV SCH (21:00)
[2016-11-17] MEDS: ATORVASTATIN CALCIUM 10 MG TABLET. PO SCH (22:52)
[2016-11-17] MEDS: TEMAZEPAM 15 MG CAPSULE PO SCH (22:53)
[2016-11-17] MEDS: MONTELUKAST SODIUM 10 MG TABLET. PO SCH (22:53)
[2016-11-17 23:35] VITALS: BP_SYST 102; BP_SYST 103; BP_DIAS 37; BP_DIAS 68
--- NOTE | 2016-11-18 00:13 | ACF ---
Admission Forms Criteria COPD Clinical Indications for Admission to Inpatient Care (Place 'X' for any and all applicable criteria): Admission is indicated for ANY ONE of the following (1)(2)(3): [X]I. Acute exacerbation by high-risk comorbidity (e.g., pneumonia, dysrhythmia, heart failure, pleural effusion, pneumothorax) or severe underlying COPD (e.g., steroid dependent) [ ]II. Inpatient admission required rather than observation care (see Chronic Obstructive Pulmonary Disease: Observation Care) because of ANY ONE of the following: [ ]a) New or pre-existing signs or symptoms of COPD (eg, dyspnea or Tachypnea at rest or with minimal activity) that persist despite outpatient and observation care treatment [ ]b) New-onset hypoxemia (room air SaO2 less than 90%, PO2 less than 60 mm Hg (8.0 kPa)) that persists despite outpatient and observation care treatment [ ]c) Worsening of pre-existing hypoxemia (eg, new or increased requirement for supplemental oxygen to maintain oxygenation at baseline level) that persists despite outpatient and observation care treatment, with oxygen treatment needs performable only in acute inpatient setting [ ]d) Hypercarbia (PCO2 greater than 40 mm Hg (5.3 kPa))-induced respiratory acidosis (pH less than 7.35) that persists despite outpatient and observation care treatment [ ]e) Supplemental oxygen or respiratory treatments for over 24 hours that are performable only in acute inpatient setting [ ]f) Chest tube placement with active evacuation (e.g., suction, drainage) (5) [ ]g) Other condition, treatment or monitoring requiring inpatient admission [ ]III. Planned invasive surgical or diagnostic procedures requiring acute- care hospitalization [ ]IV. Acute respiratory failure (e.g., uncompensated hypercarbia, severe hypoxemia) [ ]V. Severe comorbid condition (e.g., severe steroid myopathy, acute vertebral fracture) that has acutely worsened pulmonary function [ ]. Confusion state, lethargy, obtundation, stupor or coma Extended stay beyond goal length of stay may be needed for (31)(32): [ ]a ) Respiratory Failure. [ ]b) Severe or persisting hypoxemia or hypercarbia [ ]c) Severe or persistent dyspnea [ ]d) Comorbidities (e.g. chronic heart failure, atrial fibrillation with rapid response, pneumonia) [ ]e) Malnutrition The original [facility] content created by [facility] has been revised. The portions of the content which have been revised are identified through the use of italic text or in bold, and [facility] has neither reviewed nor approved the modified material. All other unmodified content is copyright [facility]. Please see references footnoted in the original [facility] edition 2016 Admission Criteria Met?: Yes TERE BETANCOURT Nov 18, 2016 00:13
[2016-11-18] MEDS: IPRATRPIUM/ALBUTEROL 0.5/2.5MG 3 ML NEBU. NEB SCH ×6 (03:21→23:05)
[2016-11-18 03:35] VITALS: BP 102/59
[2016-11-18] MEDS: methylPREDNISolone SOD SUCC PF 125 MG/2 ML VIAL. IV SCH ×4 (06:00→21:46)
[2016-11-18 06:15] LABS: BASO % 0 % (0-3); EOS % 0 % (0-3); HEMOGLOBIN 10.6 g/dL (12.0-15.5); LYMPH # 1.4 x10^3/uL (1.0-4.8); LYMPH % 11 % (24-48); MEAN CORPUSCULAR HEMOGLOBIN 25 pg (25-35); MEAN CORPUSCULAR HGB CONC 33 g/dL (31-37); MEAN CORPUSCULAR VOLUME 77 fL (79-100); MONO % 4 % (0-9); NEUT % 85 % (31-73); PLATELET COUNT 303 x10^3/uL (140-400); RED BLOOD COUNT 4.17 x10^6/uL (3.50-5.40); RED CELL DISTRIBUTION WIDTH 15.5 % (11.5-14.5); WHITE BLOOD COUNT 12.3 x10^3/uL (4.0-11.0)
[2016-11-18] MEDS: PANTOPRAZOLE 40 MG TABLET.DR. PO SCH (06:31)
[2016-11-18] MEDS: LEVOTHYROXINE 125 MCG TABLET PO SCH (06:31)
[2016-11-18 06:44] LABS: CALCIUM 8.7 mg/dL (8.5-10.1); CREATININE 0.8 mg/dL (0.6-1.0); GFR 74.5; POTASSIUM 3.7 mmol/L (3.5-5.1)
[2016-11-18 07:00] VITALS: BP 98/62
[2016-11-18] MEDS: BUDESONIDE 0.5 MG/2 ML NEBU. NEB SCH ×2 (07:53→19:24)
[2016-11-18] MEDS: SENNOSIDES 8.6 MG TABLET PO SCH ×2 (08:46→21:00)
[2016-11-18] MEDS: CHOLESTYRAMINE/ASPARTAME 4 GM PACKET PO SCH ×2 (08:46→14:00)
[2016-11-18] MEDS: DOCUSATE SODIUM 100 MG CAPSULE. PO SCH ×2 (08:46→21:00)
[2016-11-18] MEDS: ASPIRIN CHEWABLE 81 MG TABLET. PO SCH (08:46)
[2016-11-18] MEDS: INSULIN ASPART 300 UNITS/3 ML INSULN.PEN SQ SCH ×3 (08:50→17:00)
[2016-11-18] MEDS: dilTIAZem HCL 30 MG TABLET PO SCH ×3 (08:52→21:46)
[2016-11-18] MEDS ORDERED: NON FORMULARY ITEM (Fluticasone/Salmeterol (Advair 250-50 Diskus) 1 PUFF) IH SCH (09:00)
[2016-11-18] MEDS: HYDROcodone/APAP 7.5/325MG 1 TAB TABLET PO PRN ×2 (10:36→16:52)
[2016-11-18 11:00] VITALS: BP 99/53
--- NOTE | 2016-11-18 11:35 | PDOC ---
PULMONARY PROGRESS NOTES Subjective NO SOA STILL WHEEZING Vitals Vital Signs Date Time Temp Pulse Resp B/P (MAP) Pulse Ox O2 Delivery O2 Flow Rate FiO2 11/18/16 11:00 98.4 95 20 99/53 (68) 97 Nasal Cannula 2.0 98.4 General: Alert, No acute distress Lungs: Wheezing (bilateral) Cardiovascular: S1, S2 Abdomen: Soft, Non-tender Extremities: No Edema Labs Laboratory Tests Test 11/17/16 08:10 11/17/16 10:15 11/17/16 11:44 11/17/16 12:55 White Blood Count 7.4 x10^3/uL (4.0-11.0) Red Blood Count 3.95 x10^6/uL (3.50-5.40) Hemoglobin 10.2 g/dL (12.0-15.5) Hematocrit 30.9 % (36.0-47.0) Mean Corpuscular Volume 78 fL (79-100) Mean Corpuscular Hemoglobin 26 pg (25-35) Mean Corpuscular Hemoglobin Concent 33 g/dL (31-37) Red Cell Distribution Width 15.9 % (11.5-14.5) Platelet Count 260 x10^3/uL (140-400) Neutrophils (%) (Auto) 50 % (31-73) Lymphocytes (%) (Auto) 41 % (24-48) Monocytes (%) (Auto) 6 % (0-9) Eosinophils (%) (Auto) 2 % (0-3) Basophils (%) (Auto) 1 % (0-3) Neutrophils # (Auto) 3.7 x10^3uL (1.8-7.7) Lymphocytes # (Auto) 3.0 x10^3/uL (1.0-4.8) Monocytes # (Auto) 0.5 x10^3/uL (0.0-1.1) Eosinophils # (Auto) 0.1 x10^3/uL (0.0-0.7) Basophils # (Auto) 0.0 x10^3/uL (0.0-0.2) Sodium Level 144 mmol/L (136-145) Potassium Level 3.5 mmol/L (3.5-5.1) Chloride Level 106 mmol/L (98-107) Carbon Dioxide Level 28 mmol/L (21-32) Anion Gap 10 (6-14) Blood Urea Nitrogen 14 mg/dL (7-20) Creatinine 0.8 mg/dL (0.6-1.0) Estimated GFR (Cockcroft-Gault) 74.5 BUN/Creatinine Ratio 18 (6-20) Glucose Level 123 mg/dL (70-99) Calcium Level 7.8 mg/dL (8.5-10.1) Total Bilirubin 0.3 mg/dL (0.2-1.0) Aspartate Amino Transf (AST/SGOT) 14 U/L (15-37) Alanine Aminotransferase (ALT/SGPT) 15 U/L (14-59) Alkaline Phosphatase 70 U/L (46-116) Troponin I Quantitative < 0.017 ng/mL (0.000-0.055) < 0.017 ng/mL (0.000-0.055) GT-Eun-X-Type Natriuretic Peptide 55 pg/mL (0-124) Total Protein 6.6 g/dL (6.4-8.2) Albumin 3.5 g/dL (3.4-5.0) Albumin/Globulin Ratio 1.1 (1.0-1.7) Nasal Screen MRSA (PCR) Positive (Negative) Glucose (Fingerstick) 174 mg/dL (70-99) Test 11/17/16 16:59 11/17/16 18:55 11/17/16 20:51 11/18/16 05:30 Glucose (Fingerstick) 222 mg/dL (70-99) 221 mg/dL (70-99) Troponin I Quantitative < 0.017 ng/mL (0.000-0.055) White Blood Count 12.3 x10^3/uL (4.0-11.0) Red Blood Count 4.17 x10^6/uL (3.50-5.40) Hemoglobin 10.6 g/dL (12.0-15.5) Hematocrit 32.0 % (36.0-47.0) Mean Corpuscular Volume 77 fL (79-100) Mean Corpuscular Hemoglobin 25 pg (25-35) Mean Corpuscular Hemoglobin Concent 33 g/dL (31-37) Red Cell Distribution Width 15.5 % (11.5-14.5) Platelet Count 303 x10^3/uL (140-400) Neutrophils (%) (Auto) 85 % (31-73) Lymphocytes (%) (Auto) 11 % (24-48) Monocytes (%) (Auto) 4 % (0-9) Eosinophils (%) (Auto) 0 % (0-3) Basophils (%) (Auto) 0 % (0-3) Neutrophils # (Auto) 10.4 x10^3uL (1.8-7.7) Lymphocytes # (Auto) 1.4 x10^3/uL (1.0-4.8) Monocytes # (Auto) 0.4 x10^3/uL (0.0-1.1) Eosinophils # (Auto) 0.0 x10^3/uL (0.0-0.7) Basophils # (Auto) 0.0 x10^3/uL (0.0-0.2) Sodium Level 141 mmol/L (136-145) Potassium Level 3.7 mmol/L (3.5-5.1) Chloride Level 101 mmol/L (98-107) Carbon Dioxide Level 27 mmol/L (21-32) Anion Gap 13 (6-14) Blood Urea Nitrogen 21 mg/dL (7-20) Creatinine 0.8 mg/dL (0.6-1.0) Estimated GFR (Cockcroft-Gault) 74.5 Glucose Level 208 mg/dL (70-99) Calcium Level 8.7 mg/dL (8.5-10.1) Test 11/18/16 07:42 Glucose (Fingerstick) 200 mg/dL (70-99) Laboratory Tests Test 11/17/16 11:44 11/17/16 12:55 11/17/16 16:59 11/17/16 18:55 Glucose (Fingerstick) 174 mg/dL (70-99) 222 mg/dL (70-99) Troponin I Quantitative < 0.017 ng/mL (0.000-0.055) < 0.017 ng/mL (0.000-0.055) Test 11/17/16 20:51 11/18/16 05:30 11/18/16 07:42 Glucose (Fingerstick) 221 mg/dL (70-99) 200 mg/dL (70-99) White Blood Count 12.3 x10^3/uL (4.0-11.0) Red Blood Count 4.17 x10^6/uL (3.50-5.40) Hemoglobin 10.6 g/dL (12.0-15.5) Hematocrit 32.0 % (36.0-47.0) Mean Corpuscular Volume 77 fL (79-100) Mean Corpuscular Hemoglobin 25 pg (25-35) Mean Corpuscular Hemoglobin Concent 33 g/dL (31-37) Red Cell Distribution Width 15.5 % (11.5-14.5) Platelet Count 303 x10^3/uL (140-400) Neutrophils (%) (Auto) 85 % (31-73) Lymphocytes (%) (Auto) 11 % (24-48) Monocytes (%) (Auto) 4 % (0-9) Eosinophils (%) (Auto) 0 % (0-3) Basophils (%) (Auto) 0 % (0-3) Neutrophils # (Auto) 10.4 x10^3uL (1.8-7.7) Lymphocytes # (Auto) 1.4 x10^3/uL (1.0-4.8) Monocytes # (Auto) 0.4 x10^3/uL (0.0-1.1) Eosinophils # (Auto) 0.0 x10^3/uL (0.0-0.7) Basophils # (Auto) 0.0 x10^3/uL (0.0-0.2) Sodium Level 141 mmol/L (136-145) Potassium Level 3.7 mmol/L (3.5-5.1) Chloride Level 101 mmol/L (98-107) Carbon Dioxide Level 27 mmol/L (21-32) Anion Gap 13 (6-14) Blood Urea Nitrogen 21 mg/dL (7-20) Creatinine 0.8 mg/dL (0.6-1.0) Estimated GFR (Cockcroft-Gault) 74.5 Glucose Level 208 mg/dL (70-99) Calcium Level 8.7 mg/dL (8.5-10.1) Medications Active Scripts Medications Dose Route/Sig Max Daily Dose Days Date Category Dose Instructions Albuterol Sulfate Neb Soln (Albuterol Sulfate) 2.5 Mg/3 Ml Vial.neb 1 Vial NEB PRN Q4HRS 11/17/16 Reported Temazepam 15 Mg Capsule 1 Cap PO QHS 11/17/16 Reported Montelukast Sodium Tablet (Montelukast Sodium) 10 Mg Tablet 1 Tab PO HS 11/17/16 Reported Senokot (Sennosides) 8.6 Mg Tablet 1 Tab PO BID 11/17/16 Reported Levothyroxine Sodium 125 Mcg Tablet 1 Tab PO DAILY 11/17/16 Reported Colace (Docusate Sodium) 100 Mg Capsule 1 Cap PO BID 11/17/16 Reported Advair 250-50 Diskus (Fluticasone/Salmeterol) 1 Each Disk.w.dev 1 Puff IH DAILY 11/17/16 Reported Atorvastatin Calcium 10 Mg Tablet 10 Mg PO HS 06/12/16 Reported Omeprazole 40 Mg Capsule.dr 1 Cap PO DAILY 06/11/16 Reported Proventil Hfa Inhaler (Albuterol Sulfate) 6.7 Gm Hfa.aer.ad 1 Puff IH PRN Q4HRS PRN 06/11/16 Reported Hydrocodone-Apap 7.5-325 (Hydrocodone Bit/Acetaminophen) 1 Each Tablet 1 Tab PO PRN Q6HRS PRN 03/25/16 Rx Gave dose at 3:45 May take again after 9:45 Cholestyramine Packet (Cholestyramine (With Sugar)) 4 Gm Powd.pack 4 Gm PO BID92 03/20/16 Rx Cardizem Tablet (Diltiazem Hcl) 30 Mg Tablet 30 Mg PO TID 03/20/16 Rx Children's Aspirin (Aspirin) 81 Mg Tab.chew 81 Mg PO DAILYWBKFT 02/17/16 Rx Impression . 1. Dyspnea due to AECOPD 2. Diffuse bronchospasm ,due to AECOPD, cannot exclude mild acute diastolic HF 3. h/o oxygen dependant COPD 4. h/o grade II diastolic dysfunction 5. Acute bronchitis Plan . 1.Nebs q 4 hr/ , pulmicort 2.IV steroids 3 prn diuresis 4.Empiric antibiotic 5. oxygen 6. ok [facility] for IV steroids d/w BRIAN Jauregui MD Nov 18, 2016 11:35
--- NOTE | 2016-11-18 11:35 | PDOC1 ---
History and Physical Date of Admission Date of Admission DATE: 11/17/16 TIME: 11:29 Identification/Chief Complaint Chief Complaint cough, dyspnea Problems: Source Source: Chart review, Patient History of Present Illness History of Present Illness LATE ENTRY, pt seen 11/17 Ms. Graves is a 56 year old woman, who presents to the emergency department via EMS from her rehab facility for cough and dyspnea and wheezing. about 24 hours of progressive worsening symptoms w./ cough and yellow sputum. She feels this is standard COPD bronchitis w. dyspnea exacerbation for her. sx not improved yesterday with prednisone and nebs Pt has been at rehab after CVA, and was hoping to go home soon. Past Medical History Past Medical History history of hemorrhagic stroke, type 2 diabetes mellitus, hypertension, COPD, CAD , Cardiovascular: HTN Pulmonary: Asthma, COPD CENTRAL NERVOUS SYSTEM: CVA GI: Other Heme/Onc: Anemia NOS Musculoskeletal: Other Endocrine: Diabetes Past Surgical History Past Surgical History: , Hysterectomy Family History Family History: Coronary Artery Disease, Diabetes Social History Smoke: # pack years (30) ALCOHOL: none Drugs: None Current Problem List Problem List Problems Medical Problems: (1) COPD exacerbation Status: Acute Problems: Current Medications Current Medications Current Medications Albuterol/ Ipratropium (Duoneb) 3 ml 1X ONCE NEB Last administered on 07:54; Start 11/17/16 at 07:30; Stop 11/17/16 at 07:33; Status DC Methylprednisolone Sodium Succinate (SOLU-Medrol 125MG VIAL) 125 mg 1X ONCE IV Last administered on 11/17/16 08:27; Start 11/17/16 at 07:30; Stop 11/17/16 at 07:33; Status DC Albuterol Sulfate (Ventolin Neb Soln) 10 mg 1X ONCE CONT NEB Last administered on 11/17/16 09:22; Start 11/17/16 at 09:15; Stop 11/17/16 at 09:16 ; Status DC Ondansetron HCl (Zofran) 4 mg PRN Q8HRS PRN IV NAUSEA/VOMITING; Start 11/17/16 at 09:30; Stop 11/18/16 at 09:29; Status DC Acetaminophen (Tylenol) 650 mg PRN Q4HRS PRN PO FEVER; Start 11/17/16 at 09:30 ; Stop 11/18/16 at 09:29; Status DC Albuterol/ Ipratropium (Duoneb) 3 ml RTQID NEB Last administered on 11/17/16 12:05; Start 11/17/16 at 12:00; Stop 11/17/16 at 12:47; Status DC Insulin Aspart (NovoLOG) 0-5 UNITS TIDWMEALS SQ Last administered on 11/18/16 08:50; Start 11/17/16 at 12:00 Dextrose (Dextrose 50%-Water Syringe) 12.5 gm PRN Q15MIN PRN IV SEE COMMENTS; Start 11/17/16 at 09:30 Methylprednisolone Sodium Succinate (SOLU-Medrol 40MG VIAL) 40 mg Q12HR IV ; Start 11/17/16 at 21:00; Stop 11/17/16 at 21:00; Status DC Albuterol Sulfate (Ventolin Neb Soln) 2.5 mg PRN Q4HRS PRN NEB SHORTNESS OF BREATH; Start 11/17/16 at 10:30 Aspirin (Children'S Aspirin) 81 mg DAILYWBKFT PO Last administered on 08:46; Start 11/17/16 at 12:00 Atorvastatin Calcium (Lipitor) 10 mg HS PO Last administered on 11/17/16 22:52 ; Start 11/17/16 at 21:00 Diltiazem HCl (Cardizem) 30 mg TID PO Last administered on 11/17/16 16:34; Start 11/17/16 at 11:00 Docusate Sodium (Colace) 100 mg BID PO Last administered on 11/18/16 08:46; Start 11/17/16 at 11:30 Acetaminophen/ Hydrocodone Bitart (Lortab 7.5/325) 1 tab PRN Q6HRS PRN PO PAIN Last administered on 11/18/16 10:36; Start 11/17/16 at 10:30 Levothyroxine Sodium (Synthroid) 125 mcg DAILY07 PO Last administered on 06:31; Start 11/17/16 at 15:30 Montelukast Sodium (Singulair) 10 mg HS PO Last administered on 11/17/16 22:53 ; Start 11/17/16 at 21:00 Sennosides (Senna) 8.6 mg BID PO Last administered on 11/18/16 08:46; Start at 11:30 Temazepam (Restoril) 15 mg QHS PO Last administered on 11/17/16 22:53; Start 11/17/16 at 21:00 Cholestyramine Resin (Questran Light) 4 gm BID92 PO Last administered on 08:46; Start 11/17/16 at 11:30 Non-Formulary Medication 1 puff DAILY IH ; Start 11/18/16 at 09:00; Stop at 09:00; Status DC Pantoprazole Sodium (Protonix) 40 mg DAILYAC PO Last administered on 11/18/16 06:31; Start 11/17/16 at 11:30 Albuterol Sulfate (Ventolin Neb Soln) 2.5 mg Q6HRS NEB ; Start 11/17/16 at 12:00 ; Stop 11/17/16 at 12:00; Status DC Budesonide (Pulmicort) 0.5 mg RTBID NEB Last administered on 11/18/16 07:53; Start 11/17/16 at 11:30 Methylprednisolone Sodium Succinate (SOLU-Medrol 125MG VIAL) 60 mg Q8HRS IV Last administered on 11/17/16 23:07; Start 11/17/16 at 14:00 Albuterol/ Ipratropium (Duoneb) 3 ml Q4HRS NEB Last administered on 11/18/16 07:53; Start 11/17/16 at 16:00 Levofloxacin (Levaquin) 500 mg DAILY06 PO Last administered on 11/18/16 06:31 ; Start 11/17/16 at 13:00 Furosemide (Lasix) 40 mg 1X ONCE IVP Last administered on 11/17/16 14:08; Start 11/17/16 at 13:00; Stop 11/17/16 at 13:01; Status DC Active Scripts Active Hydrocodone-Apap 7.5-325 (Hydrocodone Bit/Acetaminophen) 1 Each Tablet 1 Tab PO PRN Q6HRS PRN Gave dose at 3:45 May take again after 9:45 Cholestyramine Packet (Cholestyramine (With Sugar)) 4 Gm Powd.pack 4 Gm PO BID92 Cardizem Tablet (Diltiazem Hcl) 30 Mg Tablet 30 Mg PO TID Children's Aspirin (Aspirin) 81 Mg Tab.chew 81 Mg PO DAILYWBKFT Reported Albuterol Sulfate Neb Soln (Albuterol Sulfate) 2.5 Mg/3 Ml Vial.neb 1 Vial NEB PRN Q4HRS Temazepam 15 Mg Capsule 1 Cap PO QHS Montelukast Sodium Tablet (Montelukast Sodium) 10 Mg Tablet 1 Tab PO HS Senokot (Sennosides) 8.6 Mg Tablet 1 Tab PO BID Levothyroxine Sodium 125 Mcg Tablet 1 Tab PO DAILY Colace (Docusate Sodium) 100 Mg Capsule 1 Cap PO BID Advair 250-50 Diskus (Fluticasone/Salmeterol) 1 Each Disk.w.dev 1 Puff IH DAILY Atorvastatin Calcium 10 Mg Tablet 10 Mg PO HS Omeprazole 40 Mg Capsule.dr 1 Cap PO DAILY Proventil Hfa Inhaler (Albuterol Sulfate) 6.7 Gm Hfa.aer.ad 1 Puff IH PRN Q4HRS PRN Allergies Allergies: Coded Allergies: Penicillins (Verified Allergy, Intermediate, Seizure, Rash, 06/12/16) I S O L A T I O N *CONTACT* (Verified Allergy, Unknown, 09/01/16) mrsa aspirin (Verified Adverse Reaction, Intermediate, Nausea, 06/12/16) codeine (Verified Adverse Reaction, Intermediate, Nausea, 06/12/16) ROS General: YES: Fatigue, Malaise PSYCHOLOGICAL ROS: No: Anxiety, Behavioral Disorder, Concentration difficultie , Decreased libido, Depression, Disorientation, Hallucinations, Hostility, Irritablity, Memory difficulties, Mood Swings, Obsessive thoughts, Physical abuse, Sexual abuse, Sleep disturbances, Suicidal ideation, Other Eyes: No Blurry vision, No Decreased vision, No Double vision, No Dry eyes, No Excessive tearing, No Eye Pain, No Itchy Eyes, No Loss of vision, No Photophobia , No Scotomata, No Uses contacts, No Uses glasses, No Other HEENT: YES: Heacaches Respiratory: YES: Cough, Shortness of breath, Sputum Changes, Tachypnea, Wheezing, No: Hemoptysis, Orthopnea, Pleuritic Pain, SOB with excertion, Stridor, Other Cardiovascular: No Chest Pain, No Palpitations, No Orthopnea, No Paroxysmal Noc. Dyspnea, No Edema, No Lt Headedness, No Other Gastrointestinal: No Nausea, No Vomiting, No Abdominal Pain, No Diarrhea, No Constipation, No Melena, No Hematochezia, No Other Genitourinary: No Dysuria, No Frequency, No Incontinence, No Hematuria, No Retention, No Discharge, No Urgency, No Pain, No Flank Pain, No Other, No , No , No , No , No , No , No Musculoskeletal: Yes Joint Pain, No Gait Disturbance, No Joint Stiffness, No Joint Swelling, No Muscle Pain, No Muscular Weakness, No Pain In:, No Swelling In:, No Other Neurological: No Behavorial Changes, No Bowel/Bladder ControlChng, No Confusion , No Dizziness, No Gait Disturbance, No Headaches, No Impaired Coord/balance, No Memory Loss, No Numbness/Tingling, No Seizures, No Speech Problems, No Tremors, No Visual Changes, No Weakness, No Other Skin: Yes Dry Skin, No Eczema, No Hair Changes, No Lumps, No Mole Changes, No Mottling, No Nail Changes, No Pruritus, No Rash, No Skin Lesion Changes, No Other, No Acne Physical Exam General: Alert, Oriented X3, Cooperative, mild distress HEENT: Atraumatic, PERRLA Lungs: Other (rales, no wheeze, moderate vol) Heart: S1S2 Abdomen: Normal bowel sounds Extremities: No clubbing, No edema Skin: No rashes, No breakdown Neuro: Normal gait, Normal tone, Cranial nerves 3-12 NL Psych/Mental Status: Mood NL Vitals Vitals Vital Signs Date Time Temp Pulse Resp B/P (MAP) Pulse Ox O2 Delivery O2 Flow Rate FiO2 11/18/16 10:36 99 Nasal Cannula 2.0 11/18/16 08:52 81 98/62 11/18/16 07:00 98.4 18 98.4 Labs Labs Laboratory Tests Test 11/17/16 08:10 11/17/16 10:15 11/17/16 11:44 11/17/16 12:55 White Blood Count 7.4 x10^3/uL (4.0-11.0) Red Blood Count 3.95 x10^6/uL (3.50-5.40) Hemoglobin 10.2 g/dL (12.0-15.5) Hematocrit 30.9 % (36.0-47.0) Mean Corpuscular Volume 78 fL (79-100) Mean Corpuscular Hemoglobin 26 pg (25-35) Mean Corpuscular Hemoglobin Concent 33 g/dL (31-37) Red Cell Distribution Width 15.9 % (11.5-14.5) Platelet Count 260 x10^3/uL (140-400) Neutrophils (%) (Auto) 50 % (31-73) Lymphocytes (%) (Auto) 41 % (24-48) Monocytes (%) (Auto) 6 % (0-9) Eosinophils (%) (Auto) 2 % (0-3) Basophils (%) (Auto) 1 % (0-3) Neutrophils # (Auto) 3.7 x10^3uL (1.8-7.7) Lymphocytes # (Auto) 3.0 x10^3/uL (1.0-4.8) Monocytes # (Auto) 0.5 x10^3/uL (0.0-1.1) Eosinophils # (Auto) 0.1 x10^3/uL (0.0-0.7) Basophils # (Auto) 0.0 x10^3/uL (0.0-0.2) Sodium Level 144 mmol/L (136-145) Potassium Level 3.5 mmol/L (3.5-5.1) Chloride Level 106 mmol/L (98-107) Carbon Dioxide Level 28 mmol/L (21-32) Anion Gap 10 (6-14) Blood Urea Nitrogen 14 mg/dL (7-20) Creatinine 0.8 mg/dL (0.6-1.0) Estimated GFR (Cockcroft-Gault) 74.5 BUN/Creatinine Ratio 18 (6-20) Glucose Level 123 mg/dL (70-99) Calcium Level 7.8 mg/dL (8.5-10.1) Total Bilirubin 0.3 mg/dL (0.2-1.0) Aspartate Amino Transf (AST/SGOT) 14 U/L (15-37) Alanine Aminotransferase (ALT/SGPT) 15 U/L (14-59) Alkaline Phosphatase 70 U/L (46-116) Troponin I Quantitative < 0.017 ng/mL (0.000-0.055) < 0.017 ng/mL (0.000-0.055) AY-Zeq-P-Type Natriuretic Peptide 55 pg/mL (0-124) Total Protein 6.6 g/dL (6.4-8.2) Albumin 3.5 g/dL (3.4-5.0) Albumin/Globulin Ratio 1.1 (1.0-1.7) Nasal Screen MRSA (PCR) Positive (Negative) Glucose (Fingerstick) 174 mg/dL (70-99) Test 11/17/16 16:59 11/17/16 18:55 11/17/16 20:51 11/18/16 05:30 Glucose (Fingerstick) 222 mg/dL (70-99) 221 mg/dL (70-99) Troponin I Quantitative < 0.017 ng/mL (0.000-0.055) White Blood Count 12.3 x10^3/uL (4.0-11.0) Red Blood Count 4.17 x10^6/uL (3.50-5.40) Hemoglobin 10.6 g/dL (12.0-15.5) Hematocrit 32.0 % (36.0-47.0) Mean Corpuscular Volume 77 fL (79-100) Mean Corpuscular Hemoglobin 25 pg (25-35) Mean Corpuscular Hemoglobin Concent 33 g/dL (31-37) Red Cell Distribution Width 15.5 % (11.5-14.5) Platelet Count 303 x10^3/uL (140-400) Neutrophils (%) (Auto) 85 % (31-73) Lymphocytes (%) (Auto) 11 % (24-48) Monocytes (%) (Auto) 4 % (0-9) Eosinophils (%) (Auto) 0 % (0-3) Basophils (%) (Auto) 0 % (0-3) Neutrophils # (Auto) 10.4 x10^3uL (1.8-7.7) Lymphocytes # (Auto) 1.4 x10^3/uL (1.0-4.8) Monocytes # (Auto) 0.4 x10^3/uL (0.0-1.1) Eosinophils # (Auto) 0.0 x10^3/uL (0.0-0.7) Basophils # (Auto) 0.0 x10^3/uL (0.0-0.2) Sodium Level 141 mmol/L (136-145) Potassium Level 3.7 mmol/L (3.5-5.1) Chloride Level 101 mmol/L (98-107) Carbon Dioxide Level 27 mmol/L (21-32) Anion Gap 13 (6-14) Blood Urea Nitrogen 21 mg/dL (7-20) Creatinine 0.8 mg/dL (0.6-1.0) Estimated GFR (Cockcroft-Gault) 74.5 Glucose Level 208 mg/dL (70-99) Calcium Level 8.7 mg/dL (8.5-10.1) Test 11/18/16 07:42 Glucose (Fingerstick) 200 mg/dL (70-99) Laboratory Tests Test 11/17/16 11:44 11/17/16 12:55 11/17/16 16:59 11/17/16 18:55 Glucose (Fingerstick) 174 mg/dL (70-99) 222 mg/dL (70-99) Troponin I Quantitative < 0.017 ng/mL (0.000-0.055) < 0.017 ng/mL (0.000-0.055) Test 11/17/16 20:51 11/18/16 05:30 11/18/16 07:42 Glucose (Fingerstick) 221 mg/dL (70-99) 200 mg/dL (70-99) White Blood Count 12.3 x10^3/uL (4.0-11.0) Red Blood Count 4.17 x10^6/uL (3.50-5.40) Hemoglobin 10.6 g/dL (12.0-15.5) Hematocrit 32.0 % (36.0-47.0) Mean Corpuscular Volume 77 fL (79-100) Mean Corpuscular Hemoglobin 25 pg (25-35) Mean Corpuscular Hemoglobin Concent 33 g/dL (31-37) Red Cell Distribution Width 15.5 % (11.5-14.5) Platelet Count 303 x10^3/uL (140-400) Neutrophils (%) (Auto) 85 % (31-73) Lymphocytes (%) (Auto) 11 % (24-48) Monocytes (%) (Auto) 4 % (0-9) Eosinophils (%) (Auto) 0 % (0-3) Basophils (%) (Auto) 0 % (0-3) Neutrophils # (Auto) 10.4 x10^3uL (1.8-7.7) Lymphocytes # (Auto) 1.4 x10^3/uL (1.0-4.8) Monocytes # (Auto) 0.4 x10^3/uL (0.0-1.1) Eosinophils # (Auto) 0.0 x10^3/uL (0.0-0.7) Basophils # (Auto) 0.0 x10^3/uL (0.0-0.2) Sodium Level 141 mmol/L (136-145) Potassium Level 3.7 mmol/L (3.5-5.1) Chloride Level 101 mmol/L (98-107) Carbon Dioxide Level 27 mmol/L (21-32) Anion Gap 13 (6-14) Blood Urea Nitrogen 21 mg/dL (7-20) Creatinine 0.8 mg/dL (0.6-1.0) Estimated GFR (Cockcroft-Gault) 74.5 Glucose Level 208 mg/dL (70-99) Calcium Level 8.7 mg/dL (8.5-10.1) VTE Prophylaxis Ordered VTE Prophylaxis Devices: No VTE Pharmacological Prophylaxi: Yes Assessment/Plan Assessment/Plan COPD with acute bronchitis cough productive of yellow sputum IV abx, steroids, nebs, toilet, consult PULM hypothyroid, treated CAD w. htn and hyperlipids GERD, Hx CVA admit MAX SÁNCHEZ MD Nov 18, 2016 11:35
--- NOTE | 2016-11-18 12:35 | PDOC ---
PROGRESS NOTES Chief Complaint Chief Complaint Chief complaint shortness of breath Assessment and plan #1 COPD exacerbation #2 bronchitis #3 history of a traumatic brain injury #4 history of oxygen-dependent COPD #5 history of hypothyroidism Plan #1 continue IV Solu-Medrol as ordered, patient has a difficulty to get IV access will order a midline. #2 continue home medications Synthroid #3. Nebulizations with DuoNeb's, #4 provide supplemental oxygen as needed #5 labs reviewed #6 case discussed with pulmonology and sister at bedside. Prior discharge summary reviewed. #7 prognosis guarded. #8 was side sliding scale insulin for hyperglycemia. #9 continue current antibiotics. Vitals Vitals Vital Signs Date Time Temp Pulse Resp B/P (MAP) Pulse Ox O2 Delivery O2 Flow Rate FiO2 11/18/16 11:42 99 Nasal Cannula 2.0 11/18/16 11:00 98.4 95 20 99/53 (68) 98.4 Physical Exam General: Alert, Oriented X3, Cooperative, mild distress Heart: Regular rate, Normal S1 Lungs: Wheezing (bilateral) Abdomen: Normal bowel sounds Extremities: No clubbing, No edema Skin: No rashes, No breakdown Labs LABS Laboratory Tests Test 11/17/16 12:55 11/17/16 16:59 11/17/16 18:55 11/17/16 20:51 Troponin I Quantitative < 0.017 ng/mL (0.000-0.055) < 0.017 ng/mL (0.000-0.055) Glucose (Fingerstick) 222 mg/dL (70-99) 221 mg/dL (70-99) Test 11/18/16 05:30 11/18/16 07:42 11/18/16 11:58 White Blood Count 12.3 x10^3/uL (4.0-11.0) Red Blood Count 4.17 x10^6/uL (3.50-5.40) Hemoglobin 10.6 g/dL (12.0-15.5) Hematocrit 32.0 % (36.0-47.0) Mean Corpuscular Volume 77 fL (79-100) Mean Corpuscular Hemoglobin 25 pg (25-35) Mean Corpuscular Hemoglobin Concent 33 g/dL (31-37) Red Cell Distribution Width 15.5 % (11.5-14.5) Platelet Count 303 x10^3/uL (140-400) Neutrophils (%) (Auto) 85 % (31-73) Lymphocytes (%) (Auto) 11 % (24-48) Monocytes (%) (Auto) 4 % (0-9) Eosinophils (%) (Auto) 0 % (0-3) Basophils (%) (Auto) 0 % (0-3) Neutrophils # (Auto) 10.4 x10^3uL (1.8-7.7) Lymphocytes # (Auto) 1.4 x10^3/uL (1.0-4.8) Monocytes # (Auto) 0.4 x10^3/uL (0.0-1.1) Eosinophils # (Auto) 0.0 x10^3/uL (0.0-0.7) Basophils # (Auto) 0.0 x10^3/uL (0.0-0.2) Sodium Level 141 mmol/L (136-145) Potassium Level 3.7 mmol/L (3.5-5.1) Chloride Level 101 mmol/L (98-107) Carbon Dioxide Level 27 mmol/L (21-32) Anion Gap 13 (6-14) Blood Urea Nitrogen 21 mg/dL (7-20) Creatinine 0.8 mg/dL (0.6-1.0) Estimated GFR (Cockcroft-Gault) 74.5 Glucose Level 208 mg/dL (70-99) Calcium Level 8.7 mg/dL (8.5-10.1) Glucose (Fingerstick) 200 mg/dL (70-99) 125 mg/dL (70-99) Assessment and Plan Assessmemt and Plan Problems Medical Problems: (1) COPD exacerbation Status: Acute Problems: Comment Review of Relevant I have reviewed the following items jolene (where applicable) has been applied. Labs Laboratory Tests Test 11/17/16 08:10 11/17/16 10:15 11/17/16 11:44 11/17/16 12:55 White Blood Count 7.4 x10^3/uL (4.0-11.0) Red Blood Count 3.95 x10^6/uL (3.50-5.40) Hemoglobin 10.2 g/dL (12.0-15.5) Hematocrit 30.9 % (36.0-47.0) Mean Corpuscular Volume 78 fL (79-100) Mean Corpuscular Hemoglobin 26 pg (25-35) Mean Corpuscular Hemoglobin Concent 33 g/dL (31-37) Red Cell Distribution Width 15.9 % (11.5-14.5) Platelet Count 260 x10^3/uL (140-400) Neutrophils (%) (Auto) 50 % (31-73) Lymphocytes (%) (Auto) 41 % (24-48) Monocytes (%) (Auto) 6 % (0-9) Eosinophils (%) (Auto) 2 % (0-3) Basophils (%) (Auto) 1 % (0-3) Neutrophils # (Auto) 3.7 x10^3uL (1.8-7.7) Lymphocytes # (Auto) 3.0 x10^3/uL (1.0-4.8) Monocytes # (Auto) 0.5 x10^3/uL (0.0-1.1) Eosinophils # (Auto) 0.1 x10^3/uL (0.0-0.7) Basophils # (Auto) 0.0 x10^3/uL (0.0-0.2) Sodium Level 144 mmol/L (136-145) Potassium Level 3.5 mmol/L (3.5-5.1) Chloride Level 106 mmol/L (98-107) Carbon Dioxide Level 28 mmol/L (21-32) Anion Gap 10 (6-14) Blood Urea Nitrogen 14 mg/dL (7-20) Creatinine 0.8 mg/dL (0.6-1.0) Estimated GFR (Cockcroft-Gault) 74.5 BUN/Creatinine Ratio 18 (6-20) Glucose Level 123 mg/dL (70-99) Calcium Level 7.8 mg/dL (8.5-10.1) Total Bilirubin 0.3 mg/dL (0.2-1.0) Aspartate Amino Transf (AST/SGOT) 14 U/L (15-37) Alanine Aminotransferase (ALT/SGPT) 15 U/L (14-59) Alkaline Phosphatase 70 U/L (46-116) Troponin I Quantitative < 0.017 ng/mL (0.000-0.055) < 0.017 ng/mL (0.000-0.055) CA-Jzn-[id number]-Type Natriuretic Peptide 55 pg/mL (0-124) Total Protein 6.6 g/dL (6.4-8.2) Albumin 3.5 g/dL (3.4-5.0) Albumin/Globulin Ratio 1.1 (1.0-1.7) Nasal Screen MRSA (PCR) Positive (Negative) Glucose (Fingerstick) 174 mg/dL (70-99) Test 11/17/16 16:59 11/17/16 18:55 11/17/16 20:51 11/18/16 05:30 Glucose (Fingerstick) 222 mg/dL (70-99) 221 mg/dL (70-99) Troponin I Quantitative < 0.017 ng/mL (0.000-0.055) White Blood Count 12.3 x10^3/uL (4.0-11.0) Red Blood Count 4.17 x10^6/uL (3.50-5.40) Hemoglobin 10.6 g/dL (12.0-15.5) Hematocrit 32.0 % (36.0-47.0) Mean Corpuscular Volume 77 fL (79-100) Mean Corpuscular Hemoglobin 25 pg (25-35) Mean Corpuscular Hemoglobin Concent 33 g/dL (31-37) Red Cell Distribution Width 15.5 % (11.5-14.5) Platelet Count 303 x10^3/uL (140-400) Neutrophils (%) (Auto) 85 % (31-73) Lymphocytes (%) (Auto) 11 % (24-48) Monocytes (%) (Auto) 4 % (0-9) Eosinophils (%) (Auto) 0 % (0-3) Basophils (%) (Auto) 0 % (0-3) Neutrophils # (Auto) 10.4 x10^3uL (1.8-7.7) Lymphocytes # (Auto) 1.4 x10^3/uL (1.0-4.8) Monocytes # (Auto) 0.4 x10^3/uL (0.0-1.1) Eosinophils # (Auto) 0.0 x10^3/uL (0.0-0.7) Basophils # (Auto) 0.0 x10^3/uL (0.0-0.2) Sodium Level 141 mmol/L (136-145) Potassium Level 3.7 mmol/L (3.5-5.1) Chloride Level 101 mmol/L (98-107) Carbon Dioxide Level 27 mmol/L (21-32) Anion Gap 13 (6-14) Blood Urea Nitrogen 21 mg/dL (7-20) Creatinine 0.8 mg/dL (0.6-1.0) Estimated GFR (Cockcroft-Gault) 74.5 Glucose Level 208 mg/dL (70-99) Calcium Level 8.7 mg/dL (8.5-10.1) Test 11/18/16 07:42 11/18/16 11:58 Glucose (Fingerstick) 200 mg/dL (70-99) 125 mg/dL (70-99) Laboratory Tests Test 11/17/16 12:55 11/17/16 16:59 11/17/16 18:55 11/17/16 20:51 Troponin I Quantitative < 0.017 ng/mL (0.000-0.055) < 0.017 ng/mL (0.000-0.055) Glucose (Fingerstick) 222 mg/dL (70-99) 221 mg/dL (70-99) Test 11/18/16 05:30 11/18/16 07:42 11/18/16 11:58 White Blood Count 12.3 x10^3/uL (4.0-11.0) Red Blood Count 4.17 x10^6/uL (3.50-5.40) Hemoglobin 10.6 g/dL (12.0-15.5) Hematocrit 32.0 % (36.0-47.0) Mean Corpuscular Volume 77 fL (79-100) Mean Corpuscular Hemoglobin 25 pg (25-35) Mean Corpuscular Hemoglobin Concent 33 g/dL (31-37) Red Cell Distribution Width 15.5 % (11.5-14.5) Platelet Count 303 x10^3/uL (140-400) Neutrophils (%) (Auto) 85 % (31-73) Lymphocytes (%) (Auto) 11 % (24-48) Monocytes (%) (Auto) 4 % (0-9) Eosinophils (%) (Auto) 0 % (0-3) Basophils (%) (Auto) 0 % (0-3) Neutrophils # (Auto) 10.4 x10^3uL (1.8-7.7) Lymphocytes # (Auto) 1.4 x10^3/uL (1.0-4.8) Monocytes # (Auto) 0.4 x10^3/uL (0.0-1.1) Eosinophils # (Auto) 0.0 x10^3/uL (0.0-0.7) Basophils # (Auto) 0.0 x10^3/uL (0.0-0.2) Sodium Level 141 mmol/L (136-145) Potassium Level 3.7 mmol/L (3.5-5.1) Chloride Level 101 mmol/L (98-107) Carbon Dioxide Level 27 mmol/L (21-32) Anion Gap 13 (6-14) Blood Urea Nitrogen 21 mg/dL (7-20) Creatinine 0.8 mg/dL (0.6-1.0) Estimated GFR (Cockcroft-Gault) 74.5 Glucose Level 208 mg/dL (70-99) Calcium Level 8.7 mg/dL (8.5-10.1) Glucose (Fingerstick) 200 mg/dL (70-99) 125 mg/dL (70-99) Medications Current Medications Albuterol/ Ipratropium (Duoneb) 3 ml 1X ONCE NEB Last administered on 07:54; Start 11/17/16 at 07:30; Stop 11/17/16 at 07:33; Status DC Methylprednisolone Sodium Succinate (SOLU-Medrol 125MG VIAL) 125 mg 1X ONCE IV Last administered on 11/17/16 08:27; Start 11/17/16 at 07:30; Stop 11/17/16 at 07:33; Status DC Albuterol Sulfate (Ventolin Neb Soln) 10 mg 1X ONCE CONT NEB Last administered on 11/17/16 09:22; Start 11/17/16 at 09:15; Stop 11/17/16 at 09:16 ; Status DC Ondansetron HCl (Zofran) 4 mg PRN Q8HRS PRN IV NAUSEA/VOMITING; Start 11/17/16 at 09:30; Stop 11/18/16 at 09:29; Status DC Acetaminophen (Tylenol) 650 mg PRN Q4HRS PRN PO FEVER; Start 11/17/16 at 09:30 ; Stop 11/18/16 at 09:29; Status DC Albuterol/ Ipratropium (Duoneb) 3 ml RTQID NEB Last administered on 11/17/16 12:05; Start 11/17/16 at 12:00; Stop 11/17/16 at 12:47; Status DC Insulin Aspart (NovoLOG) 0-5 UNITS TIDWMEALS SQ Last administered on 11/18/16 08:50; Start 11/17/16 at 12:00 Dextrose (Dextrose 50%-Water Syringe) 12.5 gm PRN Q15MIN PRN IV SEE COMMENTS; Start 11/17/16 at 09:30 Methylprednisolone Sodium Succinate (SOLU-Medrol 40MG VIAL) 40 mg Q12HR IV ; Start 11/17/16 at 21:00; Stop 11/17/16 at 21:00; Status DC Albuterol Sulfate (Ventolin Neb Soln) 2.5 mg PRN Q4HRS PRN NEB SHORTNESS OF BREATH; Start 11/17/16 at 10:30 Aspirin (Children'S Aspirin) 81 mg DAILYWBKFT PO Last administered on 08:46; Start 11/17/16 at 12:00 Atorvastatin Calcium (Lipitor) 10 mg HS PO Last administered on 11/17/16 22:52 ; Start 11/17/16 at 21:00 Diltiazem HCl (Cardizem) 30 mg TID PO Last administered on 11/17/16 16:34; Start 11/17/16 at 11:00 Docusate Sodium (Colace) 100 mg BID PO Last administered on 11/18/16 08:46; Start 11/17/16 at 11:30 Acetaminophen/ Hydrocodone Bitart (Lortab 7.5/325) 1 tab PRN Q6HRS PRN PO PAIN Last administered on 11/18/16 10:36; Start 11/17/16 at 10:30 Levothyroxine Sodium (Synthroid) 125 mcg DAILY07 PO Last administered on 06:31; Start 11/17/16 at 15:30 Montelukast Sodium (Singulair) 10 mg HS PO Last administered on 11/17/16 22:53 ; Start 11/17/16 at 21:00 Sennosides (Senna) 8.6 mg BID PO Last administered on 11/18/16 08:46; Start at 11:30 Temazepam (Restoril) 15 mg QHS PO Last administered on 11/17/16 22:53; Start 11/17/16 at 21:00 Cholestyramine Resin (Questran Light) 4 gm BID92 PO Last administered on 08:46; Start 11/17/16 at 11:30 Non-Formulary Medication 1 puff DAILY IH ; Start 11/18/16 at 09:00; Stop at 09:00; Status DC Pantoprazole Sodium (Protonix) 40 mg DAILYAC PO Last administered on 11/18/16 06:31; Start 11/17/16 at 11:30 Albuterol Sulfate (Ventolin Neb Soln) 2.5 mg Q6HRS NEB ; Start 11/17/16 at 12:00 ; Stop 11/17/16 at 12:00; Status DC Budesonide (Pulmicort) 0.5 mg RTBID NEB Last administered on 11/18/16 07:53; Start 11/17/16 at 11:30 Methylprednisolone Sodium Succinate (SOLU-Medrol 125MG VIAL) 60 mg Q8HRS IV Last administered on 11/17/16 23:07; Start 11/17/16 at 14:00 Albuterol/ Ipratropium (Duoneb) 3 ml Q4HRS NEB Last administered on 11/18/16 11:40; Start 11/17/16 at 16:00 Levofloxacin (Levaquin) 500 mg DAILY06 PO Last administered on 11/18/16 06:31 ; Start 11/17/16 at 13:00 Furosemide (Lasix) 40 mg 1X ONCE IVP Last administered on 11/17/16 14:08; Start 11/17/16 at 13:00; Stop 11/17/16 at 13:01; Status DC Enoxaparin Sodium (Lovenox Per Pharmacy Prophylaxis Dosing) 1 each PRN DAILY PRN MC SEE COMMENTS; Start 11/18/16 at 11:45 Enoxaparin Sodium (Lovenox 40mg Syringe) 40 mg Q24H SQ ; Start 11/18/16 at 12:00 Active Scripts Active Hydrocodone-Apap 7.5-325 (Hydrocodone Bit/Acetaminophen) 1 Each Tablet 1 Tab PO PRN Q6HRS PRN Gave dose at 3:45 May take again after 9:45 Cholestyramine Packet (Cholestyramine (With Sugar)) 4 Gm Powd.pack 4 Gm PO [id number] Cardizem Tablet (Diltiazem Hcl) 30 Mg Tablet 30 Mg PO TID Children's Aspirin (Aspirin) 81 Mg Tab.chew 81 Mg PO DAILYWBKFT Reported Albuterol Sulfate Neb Soln (Albuterol Sulfate) 2.5 Mg/3 Ml Vial.neb 1 Vial NEB PRN Q4HRS Temazepam 15 Mg Capsule 1 Cap PO QHS Montelukast Sodium Tablet (Montelukast Sodium) 10 Mg Tablet 1 Tab PO HS Senokot (Sennosides) 8.6 Mg Tablet 1 Tab PO BID Levothyroxine Sodium 125 Mcg Tablet 1 Tab PO DAILY Colace (Docusate Sodium) 100 Mg Capsule 1 Cap PO BID Advair 250-50 Diskus (Fluticasone/Salmeterol) 1 Each Disk.w.dev 1 Puff IH DAILY Atorvastatin Calcium 10 Mg Tablet 10 Mg PO HS Omeprazole 40 Mg Capsule.dr 1 Cap PO DAILY Proventil Hfa Inhaler (Albuterol Sulfate) 6.7 Gm Hfa.aer.ad 1 Puff IH PRN Q4HRS PRN Vitals/I & O Vital Sign - Last 24 Hours 11/17/16 11/17/16 11/17/16 11/17/16 12:49 15:00 16:29 16:34 Temp 98.4 98.4 Pulse 93 93 Resp 20 B/P (MAP) 122/76 (91) 122/76 Pulse Ox 95 O2 Delivery Nasal Cannula Nasal Cannula Nasal Cannula O2 Flow Rate 2.0 2.0 2.0 11/17/16 11/17/16 11/17/16 11/17/16 19:35 20:00 20:10 20:10 Temp 98.4 98.4 Pulse 95 Resp 18 B/P (MAP) 93/48 (63) Pulse Ox 95 94 O2 Delivery Nasal Cannula Nasal Cannula Nasal Cannula Room Air O2 Flow Rate 2.0 2.0 2.0 11/17/16 11/17/16 11/18/16 11/18/16 23:18 23:35 03:21 03:35 Temp 98.2 97.7 98.2 97.7 Pulse 80 74 Resp 18 18 B/P (MAP) 103/68 (80) 102/59 (73) Pulse Ox 100 98 97 O2 Delivery Nasal Cannula Nasal Cannula Nasal Cannula Nasal Cannula O2 Flow Rate 2.0 2.0 2.0 2.0 11/18/16 11/18/16 11/18/16 11/18/16 07:00 07:54 08:00 08:52 Temp 98.4 98.4 Pulse 81 81 Resp 18 B/P (MAP) 98/62 (74) 98/62 Pulse Ox 96 99 O2 Delivery Nasal Cannula Nasal Cannula Nasal Cannula O2 Flow Rate 2.0 2.0 2.0 11/18/16 11/18/16 11/18/16 11/18/16 10:36 11:00 11:39 11:42 Temp 98.4 98.4 Pulse 95 Resp 20 B/P (MAP) 99/53 (68) Pulse Ox 99 97 97 99 O2 Delivery Nasal Cannula Nasal Cannula Nasal Cannula Nasal Cannula O2 Flow Rate 2.0 2.0 2.0 2.0 Intake and Output 11/17/16 11/17/16 11/18/16 15:00 23:00 07:00 Intake Total 500 ml 350 ml Output Total 700 ml 150 ml Balance -200 ml 200 ml MERCED DAMON MD Nov 18, 2016 12:35
[2016-11-18] MEDS: ENOXAPARIN 40 MG/0.4 ML SYRINGE. SQ SCH (12:38)
[2016-11-18 15:00] VITALS: BP 98/45
[2016-11-18 19:35] VITALS: BP 91/59
[2016-11-18] MEDS: ATORVASTATIN CALCIUM 10 MG TABLET. PO SCH (21:44)
[2016-11-18] MEDS: MONTELUKAST SODIUM 10 MG TABLET. PO SCH (21:45)
[2016-11-18] MEDS: TEMAZEPAM 15 MG CAPSULE PO SCH (21:45)
[2016-11-18 23:35] VITALS: BP 89/59
[2016-11-19] VITALS (7 sets, daily range): BP systolic 96–106; BP diastolic 55–65
[2016-11-19] MEDS: IPRATRPIUM/ALBUTEROL 0.5/2.5MG 3 ML NEBU. NEB SCH ×6 (03:12→23:23)
[2016-11-19] MEDS: methylPREDNISolone SOD SUCC PF 125 MG/2 ML VIAL. IV SCH ×3 (05:44→17:09)
[2016-11-19] MEDS: LEVOTHYROXINE 125 MCG TABLET PO SCH (05:45)
[2016-11-19] MEDS: PANTOPRAZOLE 40 MG TABLET.DR. PO SCH (06:10)
[2016-11-19] MEDS: HYDROcodone/APAP 7.5/325MG 1 TAB TABLET PO PRN ×2 (06:10→17:11)
[2016-11-19] MEDS: BUDESONIDE 0.5 MG/2 ML NEBU. NEB SCH ×2 (07:56→19:25)
[2016-11-19] MEDS: INSULIN ASPART 300 UNITS/3 ML INSULN.PEN SQ SCH ×3 (08:00→17:14)
[2016-11-19] MEDS: DOCUSATE SODIUM 100 MG CAPSULE. PO SCH ×2 (08:26→20:48)
[2016-11-19] MEDS: CHOLESTYRAMINE/ASPARTAME 4 GM PACKET PO SCH ×2 (08:26→14:00)
[2016-11-19] MEDS: dilTIAZem HCL 30 MG TABLET PO SCH ×3 (08:26→20:47)
[2016-11-19] MEDS: SENNOSIDES 8.6 MG TABLET PO SCH ×2 (08:27→20:48)
[2016-11-19] MEDS: ASPIRIN CHEWABLE 81 MG TABLET. PO SCH (08:27)
--- NOTE | 2016-11-19 10:20 | PDOC ---
PROGRESS NOTES Chief Complaint Chief Complaint Chief complaint shortness of breath Assessment and plan #1 COPD exacerbation #2 bronchitis #3 history of a traumatic brain injury #4 history of oxygen-dependent COPD #5 history of hypothyroidism Plan #1 continue IV Solu-Medrol as ordered, #2 continue home medications Synthroid #3. Nebulizations with DuoNeb's, #4 provide supplemental oxygen as needed #5 labs reviewed #6 d/w RN .#7 was side sliding scale insulin for hyperglycemia. #8 continue current antibiotics. DC planning in AM Vitals Vitals Vital Signs Date Time Temp Pulse Resp B/P (MAP) Pulse Ox O2 Delivery O2 Flow Rate FiO2 11/19/16 08:26 75 106/55 11/19/16 08:00 Room Air 11/19/16 07:57 96 11/19/16 07:26 2.0 11/19/16 06:54 98.5 17 98.5 Physical Exam General: Alert, Oriented X3, Cooperative, mild distress Heart: Regular rate, Normal S1 Lungs: Wheezing (bilateral) Abdomen: Normal bowel sounds Extremities: No clubbing, No edema Skin: No rashes, No breakdown Labs LABS Laboratory Tests Test 11/18/16 11:58 11/18/16 16:52 11/18/16 21:45 11/19/16 06:59 Glucose (Fingerstick) 125 mg/dL (70-99) 114 mg/dL (70-99) 138 mg/dL (70-99) 150 mg/dL (70-99) Assessment and Plan Assessmemt and Plan Problems Medical Problems: (1) COPD exacerbation Status: Acute Problems: Comment Review of Relevant I have reviewed the following items jolene (where applicable) has been applied. Labs Laboratory Tests Test 11/17/16 11:44 11/17/16 12:55 11/17/16 16:59 11/17/16 18:55 Glucose (Fingerstick) 174 mg/dL (70-99) 222 mg/dL (70-99) Troponin I Quantitative < 0.017 ng/mL (0.000-0.055) < 0.017 ng/mL (0.000-0.055) Test 11/17/16 20:51 11/18/16 05:30 11/18/16 07:42 11/18/16 11:58 Glucose (Fingerstick) 221 mg/dL (70-99) 200 mg/dL (70-99) 125 mg/dL (70-99) White Blood Count 12.3 x10^3/uL (4.0-11.0) Red Blood Count 4.17 x10^6/uL (3.50-5.40) Hemoglobin 10.6 g/dL (12.0-15.5) Hematocrit 32.0 % (36.0-47.0) Mean Corpuscular Volume 77 fL (79-100) Mean Corpuscular Hemoglobin 25 pg (25-35) Mean Corpuscular Hemoglobin Concent 33 g/dL (31-37) Red Cell Distribution Width 15.5 % (11.5-14.5) Platelet Count 303 x10^3/uL (140-400) Neutrophils (%) (Auto) 85 % (31-73) Lymphocytes (%) (Auto) 11 % (24-48) Monocytes (%) (Auto) 4 % (0-9) Eosinophils (%) (Auto) 0 % (0-3) Basophils (%) (Auto) 0 % (0-3) Neutrophils # (Auto) 10.4 x10^3uL (1.8-7.7) Lymphocytes # (Auto) 1.4 x10^3/uL (1.0-4.8) Monocytes # (Auto) 0.4 x10^3/uL (0.0-1.1) Eosinophils # (Auto) 0.0 x10^3/uL (0.0-0.7) Basophils # (Auto) 0.0 x10^3/uL (0.0-0.2) Sodium Level 141 mmol/L (136-145) Potassium Level 3.7 mmol/L (3.5-5.1) Chloride Level 101 mmol/L (98-107) Carbon Dioxide Level 27 mmol/L (21-32) Anion Gap 13 (6-14) Blood Urea Nitrogen 21 mg/dL (7-20) Creatinine 0.8 mg/dL (0.6-1.0) Estimated GFR (Cockcroft-Gault) 74.5 Glucose Level 208 mg/dL (70-99) Calcium Level 8.7 mg/dL (8.5-10.1) Test 11/18/16 16:52 11/18/16 21:45 11/19/16 06:59 Glucose (Fingerstick) 114 mg/dL (70-99) 138 mg/dL (70-99) 150 mg/dL (70-99) Laboratory Tests Test 11/18/16 11:58 11/18/16 16:52 11/18/16 21:45 11/19/16 06:59 Glucose (Fingerstick) 125 mg/dL (70-99) 114 mg/dL (70-99) 138 mg/dL (70-99) 150 mg/dL (70-99) Medications Current Medications Albuterol/ Ipratropium (Duoneb) 3 ml 1X ONCE NEB Last administered on 07:54; Start 11/17/16 at 07:30; Stop 11/17/16 at 07:33; Status DC Methylprednisolone Sodium Succinate (SOLU-Medrol 125MG VIAL) 125 mg 1X ONCE IV Last administered on 11/17/16 08:27; Start 11/17/16 at 07:30; Stop 11/17/16 at 07:33; Status DC Albuterol Sulfate (Ventolin Neb Soln) 10 mg 1X ONCE CONT NEB Last administered on 11/17/16 09:22; Start 11/17/16 at 09:15; Stop 11/17/16 at 09:16 ; Status DC Ondansetron HCl (Zofran) 4 mg PRN Q8HRS PRN IV NAUSEA/VOMITING; Start 11/17/16 at 09:30; Stop 11/18/16 at 09:29; Status DC Acetaminophen (Tylenol) 650 mg PRN Q4HRS PRN PO FEVER; Start 11/17/16 at 09:30 ; Stop 11/18/16 at 09:29; Status DC Albuterol/ Ipratropium (Duoneb) 3 ml RTQID NEB Last administered on 11/17/16 12:05; Start 11/17/16 at 12:00; Stop 11/17/16 at 12:47; Status DC Insulin Aspart (NovoLOG) 0-5 UNITS TIDWMEALS SQ Last administered on 11/18/16 08:50; Start 11/17/16 at 12:00 Dextrose (Dextrose 50%-Water Syringe) 12.5 gm PRN Q15MIN PRN IV SEE COMMENTS; Start 11/17/16 at 09:30 Methylprednisolone Sodium Succinate (SOLU-Medrol 40MG VIAL) 40 mg Q12HR IV ; Start 11/17/16 at 21:00; Stop 11/17/16 at 21:00; Status DC Albuterol Sulfate (Ventolin Neb Soln) 2.5 mg PRN Q4HRS PRN NEB SHORTNESS OF BREATH; Start 11/17/16 at 10:30 Aspirin (Children'S Aspirin) 81 mg DAILYWBKFT PO Last administered on 08:27; Start 11/17/16 at 12:00 Atorvastatin Calcium (Lipitor) 10 mg HS PO Last administered on 11/18/16 21:44 ; Start 11/17/16 at 21:00 Diltiazem HCl (Cardizem) 30 mg TID PO Last administered on 11/19/16 08:26; Start 11/17/16 at 11:00 Docusate Sodium (Colace) 100 mg BID PO Last administered on 11/18/16 08:46; Start 11/17/16 at 11:30 Acetaminophen/ Hydrocodone Bitart (Lortab 7.5/325) 1 tab PRN Q6HRS PRN PO PAIN Last administered on 11/19/16 06:10; Start 11/17/16 at 10:30 Levothyroxine Sodium (Synthroid) 125 mcg DAILY07 PO Last administered on 05:45; Start 11/17/16 at 15:30 Montelukast Sodium (Singulair) 10 mg HS PO Last administered on 11/18/16 21:45 ; Start 11/17/16 at 21:00 Sennosides (Senna) 8.6 mg BID PO Last administered on 11/18/16 08:46; Start at 11:30 Temazepam (Restoril) 15 mg QHS PO Last administered on 11/18/16 21:45; Start 11/17/16 at 21:00 Cholestyramine Resin (Questran Light) 4 gm BID92 PO Last administered on 08:46; Start 11/17/16 at 11:30 Non-Formulary Medication 1 puff DAILY IH ; Start 11/18/16 at 09:00; Stop at 09:00; Status DC Pantoprazole Sodium (Protonix) 40 mg DAILYAC PO Last administered on 11/19/16 06:10; Start 11/17/16 at 11:30 Albuterol Sulfate (Ventolin Neb Soln) 2.5 mg Q6HRS NEB ; Start 11/17/16 at 12:00 ; Stop 11/17/16 at 12:00; Status DC Budesonide (Pulmicort) 0.5 mg RTBID NEB Last administered on 11/19/16 07:56; Start 11/17/16 at 11:30 Methylprednisolone Sodium Succinate (SOLU-Medrol 125MG VIAL) 60 mg Q8HRS IV Last administered on 11/19/16 05:44; Start 11/17/16 at 14:00 Albuterol/ Ipratropium (Duoneb) 3 ml Q4HRS NEB Last administered on 11/19/16 07:56; Start 11/17/16 at 16:00 Levofloxacin (Levaquin) 500 mg DAILY06 PO Last administered on 11/19/16 05:44 ; Start 11/17/16 at 13:00 Furosemide (Lasix) 40 mg 1X ONCE IVP Last administered on 11/17/16 14:08; Start 11/17/16 at 13:00; Stop 11/17/16 at 13:01; Status DC Enoxaparin Sodium (Lovenox Per Pharmacy Prophylaxis Dosing) 1 each PRN DAILY PRN MC SEE COMMENTS; Start 11/18/16 at 11:45; Stop 11/18/16 at 14:09; Status DC Enoxaparin Sodium (Lovenox 40mg Syringe) 40 mg Q24H SQ Last administered on 12:38; Start 11/18/16 at 12:00 Active Scripts Active Hydrocodone-Apap 7.5-325 (Hydrocodone Bit/Acetaminophen) 1 Each Tablet 1 Tab PO PRN Q6HRS PRN Gave dose at 3:45 May take again after 9:45 Cholestyramine Packet (Cholestyramine (With Sugar)) 4 Gm Powd.pack 4 Gm PO BID92 Cardizem Tablet (Diltiazem Hcl) 30 Mg Tablet 30 Mg PO TID Children's Aspirin (Aspirin) 81 Mg Tab.chew 81 Mg PO DAILYWBKFT Reported Albuterol Sulfate Neb Soln (Albuterol Sulfate) 2.5 Mg/3 Ml Vial.neb 1 Vial NEB PRN Q4HRS Temazepam 15 Mg Capsule 1 Cap PO QHS Montelukast Sodium Tablet (Montelukast Sodium) 10 Mg Tablet 1 Tab PO HS Senokot (Sennosides) 8.6 Mg Tablet 1 Tab PO BID Levothyroxine Sodium 125 Mcg Tablet 1 Tab PO DAILY Colace (Docusate Sodium) 100 Mg Capsule 1 Cap PO BID Advair 250-50 Diskus (Fluticasone/Salmeterol) 1 Each Disk.w.dev 1 Puff IH DAILY Atorvastatin Calcium 10 Mg Tablet 10 Mg PO HS Omeprazole 40 Mg Capsule.dr 1 Cap PO DAILY Proventil Hfa Inhaler (Albuterol Sulfate) 6.7 Gm Hfa.aer.ad 1 Puff IH PRN Q4HRS PRN Vitals/I & O Vital Sign - Last 24 Hours 11/18/16 11/18/16 11/18/16 11/18/16 10:36 11:00 11:42 15:00 Temp 98.4 98.5 98.4 98.5 Pulse 95 77 Resp 20 20 B/P (MAP) 99/53 (68) 98/45 (62) Pulse Ox 99 97 99 96 O2 Delivery Nasal Cannula Nasal Cannula Nasal Cannula Nasal Cannula O2 Flow Rate 2.0 2.0 2.0 2.0 11/18/16 11/18/16 11/18/16 11/18/16 15:14 16:52 19:25 19:26 Pulse Ox 98 98 96 96 O2 Delivery Nasal Cannula Nasal Cannula Nasal Cannula Nasal Cannula O2 Flow Rate 2.0 2.0 2.0 2.0 11/18/16 11/18/16 11/18/16 11/18/16 19:35 20:00 21:46 23:05 Temp 98.1 98.1 Pulse 75 70 Resp 18 B/P (MAP) 91/59 (70) 103/61 Pulse Ox 96 O2 Delivery Nasal Cannula Nasal Cannula Nasal Cannula O2 Flow Rate 2.0 2.0 2.0 11/18/16 11/19/16 11/19/16 11/19/16 23:35 02:49 03:12 03:45 Temp 98.1 98.3 97.9 98.1 98.3 97.9 Pulse 75 72 72 Resp 18 18 18 B/P (MAP) 89/59 (69) 98/65 (76) 96/65 (75) Pulse Ox 94 93 96 96 O2 Delivery Room Air Room Air Nasal Cannula Room Air O2 Flow Rate 2.0 11/19/16 11/19/16 11/19/16 11/19/16 06:10 06:54 07:26 07:57 Temp 98.5 98.5 Pulse 75 Resp 18 17 B/P (MAP) 106/55 (72) Pulse Ox 96 93 96 96 O2 Delivery Nasal Cannula Nasal Cannula Nasal Cannula Room Air O2 Flow Rate 2.0 2.0 2.0 11/19/16 11/19/16 08:00 08:26 Pulse 75 B/P (MAP) 106/55 O2 Delivery Room Air Intake and Output 11/18/16 11/18/16 11/19/16 15:00 23:00 07:00 Intake Total 300 ml 450 ml Output Total 425 ml Balance -125 ml 450 ml MERCED DAMON MD Nov 19, 2016 10:20
[2016-11-19] MEDS: ENOXAPARIN 40 MG/0.4 ML SYRINGE. SQ SCH (12:03)
--- NOTE | 2016-11-19 13:05 | PDOC ---
PULMONARY PROGRESS NOTES Subjective NO SOA STILL WHEEZING, MOSTLY UPPER AIRWAY Vitals Vital Signs Date Time Temp Pulse Resp B/P (MAP) Pulse Ox O2 Delivery O2 Flow Rate FiO2 11/19/16 12:16 Room Air 11/19/16 10:56 98.1 82 18 105/61 (76) 96 98.1 11/19/16 07:26 2.0 General: Alert, No acute distress Lungs: Wheezing (bilateral) Cardiovascular: S1, S2 Abdomen: Soft, Non-tender Extremities: No Edema Labs Laboratory Tests Test 11/17/16 16:59 11/17/16 18:55 11/17/16 20:51 11/18/16 05:30 Glucose (Fingerstick) 222 mg/dL (70-99) 221 mg/dL (70-99) Troponin I Quantitative < 0.017 ng/mL (0.000-0.055) White Blood Count 12.3 x10^3/uL (4.0-11.0) Red Blood Count 4.17 x10^6/uL (3.50-5.40) Hemoglobin 10.6 g/dL (12.0-15.5) Hematocrit 32.0 % (36.0-47.0) Mean Corpuscular Volume 77 fL (79-100) Mean Corpuscular Hemoglobin 25 pg (25-35) Mean Corpuscular Hemoglobin Concent 33 g/dL (31-37) Red Cell Distribution Width 15.5 % (11.5-14.5) Platelet Count 303 x10^3/uL (140-400) Neutrophils (%) (Auto) 85 % (31-73) Lymphocytes (%) (Auto) 11 % (24-48) Monocytes (%) (Auto) 4 % (0-9) Eosinophils (%) (Auto) 0 % (0-3) Basophils (%) (Auto) 0 % (0-3) Neutrophils # (Auto) 10.4 x10^3uL (1.8-7.7) Lymphocytes # (Auto) 1.4 x10^3/uL (1.0-4.8) Monocytes # (Auto) 0.4 x10^3/uL (0.0-1.1) Eosinophils # (Auto) 0.0 x10^3/uL (0.0-0.7) Basophils # (Auto) 0.0 x10^3/uL (0.0-0.2) Sodium Level 141 mmol/L (136-145) Potassium Level 3.7 mmol/L (3.5-5.1) Chloride Level 101 mmol/L (98-107) Carbon Dioxide Level 27 mmol/L (21-32) Anion Gap 13 (6-14) Blood Urea Nitrogen 21 mg/dL (7-20) Creatinine 0.8 mg/dL (0.6-1.0) Estimated GFR (Cockcroft-Gault) 74.5 Glucose Level 208 mg/dL (70-99) Calcium Level 8.7 mg/dL (8.5-10.1) Test 11/18/16 07:42 11/18/16 11:58 11/18/16 16:52 11/18/16 21:45 Glucose (Fingerstick) 200 mg/dL (70-99) 125 mg/dL (70-99) 114 mg/dL (70-99) 138 mg/dL (70-99) Test 11/19/16 06:59 11/19/16 11:38 Glucose (Fingerstick) 150 mg/dL (70-99) 253 mg/dL (70-99) Laboratory Tests Test 11/18/16 16:52 11/18/16 21:45 11/19/16 06:59 11/19/16 11:38 Glucose (Fingerstick) 114 mg/dL (70-99) 138 mg/dL (70-99) 150 mg/dL (70-99) 253 mg/dL (70-99) Medications Active Scripts Medications Dose Route/Sig Max Daily Dose Days Date Category Dose Instructions Albuterol Sulfate Neb Soln (Albuterol Sulfate) 2.5 Mg/3 Ml Vial.neb 1 Vial NEB PRN Q4HRS 11/17/16 Reported Temazepam 15 Mg Capsule 1 Cap PO QHS 11/17/16 Reported Montelukast Sodium Tablet (Montelukast Sodium) 10 Mg Tablet 1 Tab PO HS 11/17/16 Reported Senokot (Sennosides) 8.6 Mg Tablet 1 Tab PO BID 11/17/16 Reported Levothyroxine Sodium 125 Mcg Tablet 1 Tab PO DAILY 11/17/16 Reported Colace (Docusate Sodium) 100 Mg Capsule 1 Cap PO BID 11/17/16 Reported Advair 250-50 Diskus (Fluticasone/Salmeterol) 1 Each Disk.w.dev 1 Puff IH DAILY 11/17/16 Reported Atorvastatin Calcium 10 Mg Tablet 10 Mg PO HS 06/12/16 Reported Omeprazole 40 Mg Capsule.dr 1 Cap PO DAILY 06/11/16 Reported Proventil Hfa Inhaler (Albuterol Sulfate) 6.7 Gm Hfa.aer.ad 1 Puff IH PRN Q4HRS PRN 06/11/16 Reported Hydrocodone-Apap 7.5-325 (Hydrocodone Bit/Acetaminophen) 1 Each Tablet 1 Tab PO PRN Q6HRS PRN 03/25/16 Rx Gave dose at 3:45 May take again after 9:45 Cholestyramine Packet (Cholestyramine (With Sugar)) 4 Gm Powd.pack 4 Gm PO [id number] 03/20/16 Rx Cardizem Tablet (Diltiazem Hcl) 30 Mg Tablet 30 Mg PO TID 03/20/16 Rx Children's Aspirin (Aspirin) 81 Mg Tab.chew 81 Mg PO DAILYWBKFT 02/17/16 Rx Impression . 1. Dyspnea due to AECOPD 2. Diffuse bronchospasm ,due to AECOPD, cannot exclude mild acute diastolic HF/ suspect anxiety component as well ? VCD 3. h/o oxygen dependant COPD 4. h/o grade II diastolic dysfunction 5. Acute bronchitis Plan . 1.Nebs q 4 hr/ , pulmicort 2.IV steroids,increase dose 3 prn diuresis 4.Empiric antibiotic 5. oxygen 6. Benzo 7. ct chest today d/w family BRIAN ALLEN MD Nov 19, 2016 13:05
--- NOTE | 2016-11-19 14:41 | RAD ---
CT of the chest without contrast, 11/19/2016: History: Shortness of breath, chest pain, possible pneumonia Noncontrast scans were obtained as requested. Comparison is made to a study from 11/19/2016. There is mild calcific plaquing of the thoracic aorta without evidence of aneurysm. Mild coronary artery calcifications are present. The heart is not enlarged. A trace amount of pericardial fluid is noted. No mediastinal adenopathy is seen. There is a moderate-sized hiatal hernia. There are minimal linear and tree-in-bud type opacities in the anterior aspects of the right middle and upper lobes. Similar findings were present on the previous study suggesting postinflammatory scarring. No dense pulmonary consolidation is seen. There is no evidence of pleural fluid. The lowest-most scan demonstrates a small fascial defect at the midline in the upper abdominal wall, containing only fat. It is incompletely delineated on these scans. IMPRESSION: 1. Minimal parenchymal scarring. 2. No acute pulmonary abnormality. 3. Moderate-sized hiatal hernia. 4. Mild coronary artery calcifications. 5. Small upper abdominal midline fat-containing ventral hernia. PQRS Compliance Statement: One or more of the following individualized dose reduction techniques were utilized for this examination: 1. Automated exposure control 2. Adjustment of the mA and/or kV according to patient size 3. Use of iterative reconstruction technique
[2016-11-19] MEDS: MONTELUKAST SODIUM 10 MG TABLET. PO SCH (20:48)
[2016-11-19] MEDS: TEMAZEPAM 15 MG CAPSULE PO SCH (20:48)
[2016-11-19] MEDS: ATORVASTATIN CALCIUM 10 MG TABLET. PO SCH (20:48)
[2016-11-20] MEDS: methylPREDNISolone SOD SUCC PF 125 MG/2 ML VIAL. IV SCH ×5 (00:37→18:33)
[2016-11-20] MEDS ORDERED: ALTEPLASE 2 MG VIAL INT CAT ONE ×2 (01:00→18:00)
[2016-11-20 02:55] VITALS: BP 89/53
[2016-11-20] MEDS: IPRATRPIUM/ALBUTEROL 0.5/2.5MG 3 ML NEBU. NEB SCH ×6 (03:53→23:38)
[2016-11-20] MEDS: HYDROcodone/APAP 7.5/325MG 1 TAB TABLET PO PRN (04:22)
[2016-11-20] MEDS: LEVOTHYROXINE 125 MCG TABLET PO SCH (05:54)
[2016-11-20 07:05] VITALS: BP 115/73
[2016-11-20] MEDS: BUDESONIDE 0.5 MG/2 ML NEBU. NEB SCH ×2 (07:15→19:38)
[2016-11-20] MEDS: CHOLESTYRAMINE/ASPARTAME 4 GM PACKET PO SCH ×2 (09:23→13:33)
[2016-11-20] MEDS: ASPIRIN CHEWABLE 81 MG TABLET. PO SCH (09:24)
[2016-11-20] MEDS: dilTIAZem HCL 30 MG TABLET PO SCH ×3 (09:24→21:31)
[2016-11-20] MEDS: PANTOPRAZOLE 40 MG TABLET.DR. PO SCH (09:25)
[2016-11-20] MEDS: SENNOSIDES 8.6 MG TABLET PO SCH ×2 (09:25→21:31)
[2016-11-20] MEDS: DOCUSATE SODIUM 100 MG CAPSULE. PO SCH ×2 (09:25→21:31)
[2016-11-20] MEDS: INSULIN ASPART 300 UNITS/3 ML INSULN.PEN SQ SCH ×3 (09:34→17:36)
[2016-11-20 10:48] VITALS: BP 113/69
--- NOTE | 2016-11-20 11:07 | PDOC ---
PULMONARY PROGRESS NOTES Subjective NO SOA STILL WHEEZING, MOSTLY UPPER AIRWAY Vitals Vital Signs Date Time Temp Pulse Resp B/P (MAP) Pulse Ox O2 Delivery O2 Flow Rate FiO2 11/20/16 10:48 98.2 80 18 113/69 (84) 98 Nasal Cannula 2.0 98.2 General: Alert, No acute distress Lungs: Wheezing (bilateral) Cardiovascular: S1, S2 Abdomen: Soft, Non-tender Extremities: No Edema Labs Laboratory Tests Test 11/18/16 11:58 11/18/16 16:52 11/18/16 21:45 11/19/16 06:59 Glucose (Fingerstick) 125 mg/dL (70-99) 114 mg/dL (70-99) 138 mg/dL (70-99) 150 mg/dL (70-99) Test 11/19/16 11:38 11/19/16 16:28 11/19/16 20:48 11/20/16 06:50 Glucose (Fingerstick) 253 mg/dL (70-99) 156 mg/dL (70-99) 272 mg/dL (70-99) 221 mg/dL (70-99) Laboratory Tests Test 11/19/16 11:38 11/19/16 16:28 11/19/16 20:48 11/20/16 06:50 Glucose (Fingerstick) 253 mg/dL (70-99) 156 mg/dL (70-99) 272 mg/dL (70-99) 221 mg/dL (70-99) Medications Active Scripts Medications Dose Route/Sig Max Daily Dose Days Date Category Dose Instructions Albuterol Sulfate Neb Soln (Albuterol Sulfate) 2.5 Mg/3 Ml Vial.neb 1 Vial NEB PRN Q4HRS 11/17/16 Reported Temazepam 15 Mg Capsule 1 Cap PO QHS 11/17/16 Reported Montelukast Sodium Tablet (Montelukast Sodium) 10 Mg Tablet 1 Tab PO HS 11/17/16 Reported Senokot (Sennosides) 8.6 Mg Tablet 1 Tab PO BID 11/17/16 Reported Levothyroxine Sodium 125 Mcg Tablet 1 Tab PO DAILY 11/17/16 Reported Colace (Docusate Sodium) 100 Mg Capsule 1 Cap PO BID 11/17/16 Reported Advair 250-50 Diskus (Fluticasone/Salmeterol) 1 Each Disk.w.dev 1 Puff IH DAILY 11/17/16 Reported Atorvastatin Calcium 10 Mg Tablet 10 Mg PO HS 06/12/16 Reported Omeprazole 40 Mg Capsule.dr 1 Cap PO DAILY 06/11/16 Reported Proventil Hfa Inhaler (Albuterol Sulfate) 6.7 Gm Hfa.aer.ad 1 Puff IH PRN Q4HRS PRN 06/11/16 Reported Hydrocodone-Apap 7.5-325 (Hydrocodone Bit/Acetaminophen) 1 Each Tablet 1 Tab PO PRN Q6HRS PRN 03/25/16 Rx Gave dose at 3:45 May take again after 9:45 Cholestyramine Packet (Cholestyramine (With Sugar)) 4 Gm Powd.pack 4 Gm PO [id number] 03/20/16 Rx Cardizem Tablet (Diltiazem Hcl) 30 Mg Tablet 30 Mg PO TID 03/20/16 Rx Children's Aspirin (Aspirin) 81 Mg Tab.chew 81 Mg PO DAILYWBKFT 02/17/16 Rx Impression . 1. Dyspnea due to AECOPD 2. Diffuse bronchospasm ,due to AECOPD, cannot exclude mild acute diastolic HF/ suspect anxiety component as well ? VCD 3. h/o oxygen dependant COPD 4. h/o grade II diastolic dysfunction 5. Acute bronchitis Plan . 1.Nebs q 4 hr/ , pulmicort 2.IV steroids 3 prn diuresis 4.Empiric antibiotic 5. oxygen 6. Benzo 7. ct chest with no CHF/ pneumonia, moderate size hiatal hernia. ? acid aspiration contributing to wheezing. Get speech eval d/w mother BRIAN ALLEN MD Nov 20, 2016 11:07
--- NOTE | 2016-11-20 11:10 | PDOC ---
PROGRESS NOTES Chief Complaint Chief Complaint Chief complaint shortness of breath Assessment and plan #1 COPD exacerbation #2 bronchitis #3 history of a traumatic brain injury #4 history of oxygen-dependent COPD #5 history of hypothyroidism HYperglycemia INsomnia History of Present Illness History of Present Illness Still wheezy BS high - on high doses steroids PT recs SNU Sw on case 30 pack yr smoking gx, quit 5 yrs ago PLAN: Inc SSI high dose SW SNU Cont PT/OT COugh med prn NOt ready for dc yet Vitals Vitals Vital Signs Date Time Temp Pulse Resp B/P (MAP) Pulse Ox O2 Delivery O2 Flow Rate FiO2 11/20/16 10:48 98.2 80 18 113/69 (84) 98 Nasal Cannula 2.0 98.2 Physical Exam General: Alert, Oriented X3, Cooperative, mild distress Heart: Regular rate, Normal S1 Lungs: Wheezing (bilateral) Abdomen: Normal bowel sounds Extremities: No clubbing, No edema Skin: No rashes, No breakdown Labs LABS Laboratory Tests Test 11/19/16 11:38 11/19/16 16:28 11/19/16 20:48 11/20/16 06:50 Glucose (Fingerstick) 253 mg/dL (70-99) 156 mg/dL (70-99) 272 mg/dL (70-99) 221 mg/dL (70-99) Review of Systems Review of Systems soa, wheezy, cough, no inc in SOa or CP, emesis Assessment and Plan Assessmemt and Plan Problems Medical Problems: (1) COPD exacerbation Status: Acute Problems: Comment Review of Relevant I have reviewed the following items jolene (where applicable) has been applied. Labs Laboratory Tests Test 11/18/16 11:58 11/18/16 16:52 11/18/16 21:45 11/19/16 06:59 Glucose (Fingerstick) 125 mg/dL (70-99) 114 mg/dL (70-99) 138 mg/dL (70-99) 150 mg/dL (70-99) Test 11/19/16 11:38 11/19/16 16:28 11/19/16 20:48 11/20/16 06:50 Glucose (Fingerstick) 253 mg/dL (70-99) 156 mg/dL (70-99) 272 mg/dL (70-99) 221 mg/dL (70-99) Laboratory Tests Test 11/19/16 11:38 11/19/16 16:28 11/19/16 20:48 11/20/16 06:50 Glucose (Fingerstick) 253 mg/dL (70-99) 156 mg/dL (70-99) 272 mg/dL (70-99) 221 mg/dL (70-99) Medications Current Medications Albuterol/ Ipratropium (Duoneb) 3 ml 1X ONCE NEB Last administered on 07:54; Start 11/17/16 at 07:30; Stop 11/17/16 at 07:33; Status DC Methylprednisolone Sodium Succinate (SOLU-Medrol 125MG VIAL) 125 mg 1X ONCE IV Last administered on 11/17/16 08:27; Start 11/17/16 at 07:30; Stop 11/17/16 at 07:33; Status DC Albuterol Sulfate (Ventolin Neb Soln) 10 mg 1X ONCE CONT NEB Last administered on 11/17/16 09:22; Start 11/17/16 at 09:15; Stop 11/17/16 at 09:16 ; Status DC Ondansetron HCl (Zofran) 4 mg PRN Q8HRS PRN IV NAUSEA/VOMITING; Start 11/17/16 at 09:30; Stop 11/18/16 at 09:29; Status DC Acetaminophen (Tylenol) 650 mg PRN Q4HRS PRN PO FEVER; Start 11/17/16 at 09:30 ; Stop 11/18/16 at 09:29; Status DC Albuterol/ Ipratropium (Duoneb) 3 ml RTQID NEB Last administered on 11/17/16 12:05; Start 11/17/16 at 12:00; Stop 11/17/16 at 12:47; Status DC Insulin Aspart (NovoLOG) 0-5 UNITS TIDWMEALS SQ Last administered on 11/20/16 09:34; Start 11/17/16 at 12:00 Dextrose (Dextrose 50%-Water Syringe) 12.5 gm PRN Q15MIN PRN IV SEE COMMENTS; Start 11/17/16 at 09:30 Methylprednisolone Sodium Succinate (SOLU-Medrol 40MG VIAL) 40 mg Q12HR IV ; Start 11/17/16 at 21:00; Stop 11/17/16 at 21:00; Status DC Albuterol Sulfate (Ventolin Neb Soln) 2.5 mg PRN Q4HRS PRN NEB SHORTNESS OF BREATH; Start 11/17/16 at 10:30 Aspirin (Children'S Aspirin) 81 mg DAILYWBKFT PO Last administered on 09:24; Start 11/17/16 at 12:00 Atorvastatin Calcium (Lipitor) 10 mg HS PO Last administered on 11/19/16 20:48 ; Start 11/17/16 at 21:00 Diltiazem HCl (Cardizem) 30 mg TID PO Last administered on 11/20/16 09:24; Start 11/17/16 at 11:00 Docusate Sodium (Colace) 100 mg BID PO Last administered on 11/20/16 09:25; Start 11/17/16 at 11:30 Acetaminophen/ Hydrocodone Bitart (Lortab 7.5/325) 1 tab PRN Q6HRS PRN PO PAIN Last administered on 11/20/16 04:22; Start 11/17/16 at 10:30 Levothyroxine Sodium (Synthroid) 125 mcg DAILY07 PO Last administered on 05:54; Start 11/17/16 at 15:30 Montelukast Sodium (Singulair) 10 mg HS PO Last administered on 11/19/16 20:48 ; Start 11/17/16 at 21:00 Sennosides (Senna) 8.6 mg BID PO Last administered on 11/20/16 09:25; Start at 11:30 Temazepam (Restoril) 15 mg QHS PO Last administered on 11/19/16 20:48; Start 11/17/16 at 21:00 Cholestyramine Resin (Questran Light) 4 gm BID92 PO Last administered on 09:23; Start 11/17/16 at 11:30 Non-Formulary Medication 1 puff DAILY IH ; Start 11/18/16 at 09:00; Stop at 09:00; Status DC Pantoprazole Sodium (Protonix) 40 mg DAILYAC PO Last administered on 11/20/16 09:25; Start 11/17/16 at 11:30 Albuterol Sulfate (Ventolin Neb Soln) 2.5 mg Q6HRS NEB ; Start 11/17/16 at 12:00 ; Stop 11/17/16 at 12:00; Status DC Budesonide (Pulmicort) 0.5 mg RTBID NEB Last administered on 11/20/16 07:15; Start 11/17/16 at 11:30 Methylprednisolone Sodium Succinate (SOLU-Medrol 125MG VIAL) 60 mg Q8HRS IV Last administered on 11/19/16 05:44; Start 11/17/16 at 14:00; Stop 11/19/16 at 13:07; Status DC Albuterol/ Ipratropium (Duoneb) 3 ml Q4HRS NEB Last administered on 11/20/16 07:15; Start 11/17/16 at 16:00 Levofloxacin (Levaquin) 500 mg DAILY06 PO Last administered on 11/20/16 05:54 ; Start 11/17/16 at 13:00 Furosemide (Lasix) 40 mg 1X ONCE IVP Last administered on 11/17/16 14:08; Start 11/17/16 at 13:00; Stop 11/17/16 at 13:01; Status DC Enoxaparin Sodium (Lovenox Per Pharmacy Prophylaxis Dosing) 1 each PRN DAILY PRN MC SEE COMMENTS; Start 11/18/16 at 11:45; Stop 11/18/16 at 14:09; Status DC Enoxaparin Sodium (Lovenox 40mg Syringe) 40 mg Q24H SQ Last administered on 12:03; Start 11/18/16 at 12:00 Methylprednisolone Sodium Succinate (SOLU-Medrol 125MG VIAL) 60 mg Q6HRS IV Last administered on 11/20/16 05:54; Start 11/19/16 at 13:30 Alteplase, Recombinant (Cathflo) 2 mg 1X ONCE INT CAT Last administered on 00:59; Start 11/20/16 at 01:00; Stop 11/20/16 at 01:01; Status DC Active Scripts Active Hydrocodone-Apap 7.5-325 (Hydrocodone Bit/Acetaminophen) 1 Each Tablet 1 Tab PO PRN Q6HRS PRN Gave dose at 3:45 May take again after 9:45 Cholestyramine Packet (Cholestyramine (With Sugar)) 4 Gm Powd.pack 4 Gm PO BID92 Cardizem Tablet (Diltiazem Hcl) 30 Mg Tablet 30 Mg PO TID Children's Aspirin (Aspirin) 81 Mg Tab.chew 81 Mg PO DAILYWBKFT Reported Albuterol Sulfate Neb Soln (Albuterol Sulfate) 2.5 Mg/3 Ml Vial.neb 1 Vial NEB PRN Q4HRS Temazepam 15 Mg Capsule 1 Cap PO QHS Montelukast Sodium Tablet (Montelukast Sodium) 10 Mg Tablet 1 Tab PO HS Senokot (Sennosides) 8.6 Mg Tablet 1 Tab PO BID Levothyroxine Sodium 125 Mcg Tablet 1 Tab PO DAILY Colace (Docusate Sodium) 100 Mg Capsule 1 Cap PO BID Advair 250-50 Diskus (Fluticasone/Salmeterol) 1 Each Disk.w.dev 1 Puff IH DAILY Atorvastatin Calcium 10 Mg Tablet 10 Mg PO HS Omeprazole 40 Mg Capsule.dr 1 Cap PO DAILY Proventil Hfa Inhaler (Albuterol Sulfate) 6.7 Gm Hfa.aer.ad 1 Puff IH PRN Q4HRS PRN Vitals/I & O Vital Sign - Last 24 Hours 11/19/16 11/19/16 11/19/16 11/19/16 12:16 14:47 14:59 16:16 Temp 98.1 98.1 Pulse 90 90 Resp 19 B/P (MAP) 100/63 100/63 (75) Pulse Ox 97 O2 Delivery Room Air Room Air Room Air 11/19/16 11/19/16 11/19/16 11/19/16 17:11 18:12 19:27 19:28 Pulse Ox 97 94 94 O2 Delivery Room Air Room Air Room Air 11/19/16 11/19/16 11/19/16 11/19/16 19:46 20:15 23:25 23:39 Temp 98.5 98.0 98.5 98.0 Pulse 79 70 Resp 20 18 B/P (MAP) 100/63 (75) 102/62 (75) Pulse Ox 90 94 O2 Delivery Nasal Cannula Nasal Cannula Room Air Room Air O2 Flow Rate 2.0 2.0 11/20/16 11/20/16 11/20/16 11/20/16 02:55 03:54 04:22 05:22 Temp 98.0 98.0 Pulse 60 Resp 18 16 16 B/P (MAP) 89/53 (65) Pulse Ox 94 O2 Delivery Nasal Cannula Nasal Cannula Room Air Nasal Cannula O2 Flow Rate 2.0 2.0 2.0 2.0 11/20/16 11/20/16 11/20/16 11/20/16 07:05 07:15 09:24 10:48 Temp 97.5 98.2 97.5 98.2 Pulse 70 70 80 Resp 18 18 B/P (MAP) 115/73 (87) 115/73 113/69 (84) Pulse Ox 95 93 98 O2 Delivery Room Air Room Air Nasal Cannula O2 Flow Rate 2.0 Intake and Output 11/19/16 11/19/16 11/20/16 14:59 22:59 06:59 Intake Total 660 ml 200 ml Output Total 600 ml Balance 660 ml -400 ml DANIELLA DAVILA MD Nov 20, 2016 11:10
[2016-11-20] MEDS ORDERED: guaiFENesin DM 200MG/20MG 10 ML SYRUP PO PRN (11:15)
[2016-11-20] MEDS ORDERED: ACETAMINOPHEN 500 MG TABLET PO PRN (11:15)
[2016-11-20] MEDS ORDERED: ONDANSETRON PF 4 MG/2 ML VIAL. IV PRN (11:15)
[2016-11-20] MEDS ORDERED: DEXTROSE 50% 25 GM / 50ML DISP.SYRIN. IV PRN (11:15)
[2016-11-20] MEDS: ENOXAPARIN 40 MG/0.4 ML SYRINGE. SQ SCH (13:10)
[2016-11-20 14:45] VITALS: BP 115/70
[2016-11-20 19:48] VITALS: BP 118/72
[2016-11-20] MEDS: TEMAZEPAM 15 MG CAPSULE PO SCH (21:31)
[2016-11-20] MEDS: ATORVASTATIN CALCIUM 10 MG TABLET. PO SCH (21:32)
[2016-11-20] MEDS: MONTELUKAST SODIUM 10 MG TABLET. PO SCH (21:34)
[2016-11-20 23:48] VITALS: BP 115/71
[2016-11-21] VITALS (7 sets, daily range): BP systolic 93–146; BP diastolic 54–68
[2016-11-21] MEDS: methylPREDNISolone SOD SUCC PF 125 MG/2 ML VIAL. IV SCH ×2 (00:53→05:49)
[2016-11-21] MEDS: IPRATRPIUM/ALBUTEROL 0.5/2.5MG 3 ML NEBU. NEB SCH ×7 (03:25→23:12)
[2016-11-21] MEDS: LEVOTHYROXINE 125 MCG TABLET PO SCH (05:50)
[2016-11-21] MEDS: HYDROcodone/APAP 7.5/325MG 1 TAB TABLET PO PRN ×2 (05:58→20:06)
[2016-11-21] MEDS: BUDESONIDE 0.5 MG/2 ML NEBU. NEB SCH ×2 (07:40→20:18)
[2016-11-21] MEDS: dilTIAZem HCL 30 MG TABLET PO SCH ×4 (08:36→20:14)
[2016-11-21] MEDS: DOCUSATE SODIUM 100 MG CAPSULE. PO SCH ×2 (08:36→20:06)
[2016-11-21] MEDS: ASPIRIN CHEWABLE 81 MG TABLET. PO SCH (08:36)
[2016-11-21] MEDS: PANTOPRAZOLE 40 MG TABLET.DR. PO SCH (08:37)
[2016-11-21] MEDS: SENNOSIDES 8.6 MG TABLET PO SCH ×2 (08:37→20:06)
[2016-11-21] MEDS: CHOLESTYRAMINE/ASPARTAME 4 GM PACKET PO SCH ×2 (08:43→14:00)
[2016-11-21] MEDS: INSULIN ASPART 300 UNITS/3 ML INSULN.PEN SQ SCH ×5 (08:43→17:47)
--- NOTE | 2016-11-21 09:35 | PDOC ---
PULMONARY PROGRESS NOTES Subjective NO SOA FEELS BETTER Vitals Vital Signs Date Time Temp Pulse Resp B/P (MAP) Pulse Ox O2 Delivery O2 Flow Rate FiO2 11/21/16 08:44 68 97/60 11/21/16 07:40 93 Room Air 11/21/16 07:18 98.1 18 98.1 11/20/16 20:00 2.0 General: Alert, No acute distress Lungs: Wheezing (only faint) Cardiovascular: S1, S2 Abdomen: Soft, Non-tender Extremities: No Edema Labs Laboratory Tests Test 11/19/16 11:38 11/19/16 16:28 11/19/16 20:48 11/20/16 06:50 Glucose (Fingerstick) 253 mg/dL (70-99) 156 mg/dL (70-99) 272 mg/dL (70-99) 221 mg/dL (70-99) Test 11/20/16 11:16 11/20/16 16:53 11/20/16 21:09 11/21/16 07:30 Glucose (Fingerstick) 298 mg/dL (70-99) 179 mg/dL (70-99) 294 mg/dL (70-99) 261 mg/dL (70-99) Laboratory Tests Test 11/20/16 11:16 11/20/16 16:53 11/20/16 21:09 11/21/16 07:30 Glucose (Fingerstick) 298 mg/dL (70-99) 179 mg/dL (70-99) 294 mg/dL (70-99) 261 mg/dL (70-99) Medications Active Scripts Medications Dose Route/Sig Max Daily Dose Days Date Category Dose Instructions Albuterol Sulfate Neb Soln (Albuterol Sulfate) 2.5 Mg/3 Ml Vial.neb 1 Vial NEB PRN Q4HRS 11/17/16 Reported Temazepam 15 Mg Capsule 1 Cap PO QHS 11/17/16 Reported Montelukast Sodium Tablet (Montelukast Sodium) 10 Mg Tablet 1 Tab PO HS 11/17/16 Reported Senokot (Sennosides) 8.6 Mg Tablet 1 Tab PO BID 11/17/16 Reported Levothyroxine Sodium 125 Mcg Tablet 1 Tab PO DAILY 11/17/16 Reported Colace (Docusate Sodium) 100 Mg Capsule 1 Cap PO BID 7/10/17 Reported Advair 250-50 Diskus (Fluticasone/Salmeterol) 1 Each Disk.w.dev 1 Puff IH DAILY 11/17/16 Reported Atorvastatin Calcium 10 Mg Tablet 10 Mg PO HS 06/12/16 Reported Omeprazole 40 Mg Capsule.dr 1 Cap PO DAILY 06/11/16 Reported Proventil Hfa Inhaler (Albuterol Sulfate) 6.7 Gm Hfa.aer.ad 1 Puff IH PRN Q4HRS PRN 06/11/16 Reported Hydrocodone-Apap 7.5-325 (Hydrocodone Bit/Acetaminophen) 1 Each Tablet 1 Tab PO PRN Q6HRS PRN 03/25/16 Rx Gave dose at 3:45 May take again after 9:45 Cholestyramine Packet (Cholestyramine (With Sugar)) 4 Gm Powd.pack 4 Gm PO [id number] 03/20/16 Rx Cardizem Tablet (Diltiazem Hcl) 30 Mg Tablet 30 Mg PO TID 03/20/16 Rx Children's Aspirin (Aspirin) 81 Mg Tab.chew 81 Mg PO DAILYWBKFT 02/17/16 Rx Impression . 1. Dyspnea due to AECOPD 2. Diffuse bronchospasm ,due to AECOPD, cannot exclude mild acute diastolic HF/ suspect VCD related to anxiety component 3. h/o oxygen dependant COPD 4. h/o grade II diastolic dysfunction 5. Acute bronchitis Plan . 1.Nebs, pulmicort 2.dc IV steroids, start PO taper 3 prn diuresis 4.Empiric antibiotic 5. oxygen 6. Benzo 7. ct chest with no CHF/ pneumonia, moderate size hiatal hernia. 8. speech eval done. f/u with ENT as OP OK WITH DC TO [facility] TODAY BRIAN ALLEN MD Nov 21, 2016 09:35
--- NOTE | 2016-11-21 11:32 | PDOC ---
PROGRESS NOTES Chief Complaint Chief Complaint Chief complaint shortness of breath Assessment and plan #1 COPD exacerbation #2 bronchitis #3 history of a traumatic brain injury #4 history of oxygen-dependent COPD #5 history of hypothyroidism HYperglycemia INsomnia History of Present Illness History of Present Illness Still wheezy BS high - on high doses steroids PT recs SNU Sw on case 30 pack yr smoking gx, quit 5 yrs ago PLAN: Inc SSI high dose SW SNU Cont PT/OT COugh med prn NOt ready for dc yet Will go back to SNU on dc [facility] do peer to peer for inpt status Vitals Vitals Vital Signs Date Time Temp Pulse Resp B/P (MAP) Pulse Ox O2 Delivery O2 Flow Rate FiO2 11/21/16 10:46 98.4 70 18 116/68 (84) 97 Room Air 98.4 11/20/16 20:00 2.0 Physical Exam General: Alert, Oriented X3, Cooperative, mild distress Heart: Regular rate, Normal S1 Lungs: Wheezing (only faint) Abdomen: Normal bowel sounds Extremities: No clubbing, No edema Skin: No rashes, No breakdown Labs LABS Laboratory Tests Test 11/20/16 16:53 11/20/16 21:09 11/21/16 07:30 Glucose (Fingerstick) 179 mg/dL (70-99) 294 mg/dL (70-99) 261 mg/dL (70-99) Review of Systems Review of Systems denies inc in SOA, CP< abd pain, etc Assessment and Plan Assessmemt and Plan Problems Medical Problems: (1) COPD exacerbation Status: Acute Problems: Comment Review of Relevant I have reviewed the following items jolene (where applicable) has been applied. Labs Laboratory Tests Test 11/19/16 11:38 11/19/16 16:28 11/19/16 20:48 11/20/16 06:50 Glucose (Fingerstick) 253 mg/dL (70-99) 156 mg/dL (70-99) 272 mg/dL (70-99) 221 mg/dL (70-99) Test 11/20/16 11:16 11/20/16 16:53 11/20/16 21:09 11/21/16 07:30 Glucose (Fingerstick) 298 mg/dL (70-99) 179 mg/dL (70-99) 294 mg/dL (70-99) 261 mg/dL (70-99) Laboratory Tests Test 11/20/16 16:53 11/20/16 21:09 11/21/16 07:30 Glucose (Fingerstick) 179 mg/dL (70-99) 294 mg/dL (70-99) 261 mg/dL (70-99) Medications Current Medications Albuterol/ Ipratropium (Duoneb) 3 ml 1X ONCE NEB Last administered on 07:54; Start 11/17/16 at 07:30; Stop 11/17/16 at 07:33; Status DC Methylprednisolone Sodium Succinate (SOLU-Medrol 125MG VIAL) 125 mg 1X ONCE IV Last administered on 11/17/16 08:27; Start 11/17/16 at 07:30; Stop 11/17/16 at 07:33; Status DC Albuterol Sulfate (Ventolin Neb Soln) 10 mg 1X ONCE CONT NEB Last administered on 11/17/16 09:22; Start 11/17/16 at 09:15; Stop 11/17/16 at 09:16 ; Status DC Ondansetron HCl (Zofran) 4 mg PRN Q8HRS PRN IV NAUSEA/VOMITING; Start 11/17/16 at 09:30; Stop 11/18/16 at 09:29; Status DC Acetaminophen (Tylenol) 650 mg PRN Q4HRS PRN PO FEVER; Start 11/17/16 at 09:30 ; Stop 11/18/16 at 09:29; Status DC Albuterol/ Ipratropium (Duoneb) 3 ml RTQID NEB Last administered on 11/17/16 12:05; Start 11/17/16 at 12:00; Stop 11/17/16 at 12:47; Status DC Insulin Aspart (NovoLOG) 0-5 UNITS TIDWMEALS SQ Last administered on 11/20/16 09:34; Start 11/17/16 at 12:00; Stop 11/20/16 at 11:08; Status DC Dextrose (Dextrose 50%-Water Syringe) 12.5 gm PRN Q15MIN PRN IV SEE COMMENTS; Start 11/17/16 at 09:30 Methylprednisolone Sodium Succinate (SOLU-Medrol 40MG VIAL) 40 mg Q12HR IV ; Start 11/17/16 at 21:00; Stop 11/17/16 at 21:00; Status DC Albuterol Sulfate (Ventolin Neb Soln) 2.5 mg PRN Q4HRS PRN NEB SHORTNESS OF BREATH Last administered on 11/21/16 05:55; Start 11/17/16 at 10:30 Aspirin (Children'S Aspirin) 81 mg DAILYWBKFT PO Last administered on 08:36; Start 11/17/16 at 12:00 Atorvastatin Calcium (Lipitor) 10 mg HS PO Last administered on 11/20/16 21:32 ; Start 11/17/16 at 21:00 Diltiazem HCl (Cardizem) 30 mg TID PO Last administered on 11/20/16 21:31; Start 11/17/16 at 11:00 Docusate Sodium (Colace) 100 mg BID PO Last administered on 11/21/16 08:36; Start 11/17/16 at 11:30 Acetaminophen/ Hydrocodone Bitart (Lortab 7.5/325) 1 tab PRN Q6HRS PRN PO PAIN Last administered on 11/21/16 05:58; Start 11/17/16 at 10:30 Levothyroxine Sodium (Synthroid) 125 mcg DAILY07 PO Last administered on 05:50; Start 11/17/16 at 15:30 Montelukast Sodium (Singulair) 10 mg HS PO Last administered on 11/20/16 21:34 ; Start 11/17/16 at 21:00 Sennosides (Senna) 8.6 mg BID PO Last administered on 11/21/16 08:37; Start at 11:30 Temazepam (Restoril) 15 mg QHS PO Last administered on 11/20/16 21:31; Start 11/17/16 at 21:00 Cholestyramine Resin (Questran Light) 4 gm BID92 PO Last administered on 09:23; Start 11/17/16 at 11:30 Non-Formulary Medication 1 puff DAILY IH ; Start 11/18/16 at 09:00; Stop at 09:00; Status DC Pantoprazole Sodium (Protonix) 40 mg DAILYAC PO Last administered on 11/21/16 08:37; Start 11/17/16 at 11:30 Albuterol Sulfate (Ventolin Neb Soln) 2.5 mg Q6HRS NEB ; Start 11/17/16 at 12:00 ; Stop 11/17/16 at 12:00; Status DC Budesonide (Pulmicort) 0.5 mg RTBID NEB Last administered on 11/21/16 07:40; Start 11/17/16 at 11:30 Methylprednisolone Sodium Succinate (SOLU-Medrol 125MG VIAL) 60 mg Q8HRS IV Last administered on 11/19/16 05:44; Start 11/17/16 at 14:00; Stop 11/19/16 at 13:07; Status DC Albuterol/ Ipratropium (Duoneb) 3 ml Q4HRS NEB Last administered on 11/20/16 19:38; Start 11/17/16 at 16:00 Levofloxacin (Levaquin) 500 mg DAILY06 PO Last administered on 11/21/16 05:49 ; Start 11/17/16 at 13:00 Furosemide (Lasix) 40 mg 1X ONCE IVP Last administered on 11/17/16 14:08; Start 11/17/16 at 13:00; Stop 11/17/16 at 13:01; Status DC Enoxaparin Sodium (Lovenox Per Pharmacy Prophylaxis Dosing) 1 each PRN DAILY PRN MC SEE COMMENTS; Start 11/18/16 at 11:45; Stop 11/18/16 at 14:09; Status DC Enoxaparin Sodium (Lovenox 40mg Syringe) 40 mg Q24H SQ Last administered on 13:10; Start 11/18/16 at 12:00 Methylprednisolone Sodium Succinate (SOLU-Medrol 125MG VIAL) 60 mg Q6HRS IV Last administered on 11/21/16 05:49; Start 11/19/16 at 13:30; Stop 11/21/16 at 09:36; Status DC Alteplase, Recombinant (Cathflo) 2 mg 1X ONCE INT CAT Last administered on 00:59; Start 11/20/16 at 01:00; Stop 11/20/16 at 01:01; Status DC Acetaminophen (Tylenol) 500 mg PRN Q6HRS PRN PO MILD PAIN / TEMP; Start at 11:15 Ondansetron HCl (Zofran) 4 mg PRN Q6HRS PRN IV NAUSEA/VOMITING; Start 11/20/16 at 11:15 Insulin Aspart (NovoLOG) 0-9 UNITS TIDWMEALS SQ Last administered on 11/21/16 08:43; Start 11/20/16 at 12:00 Dextrose (Dextrose 50%-Water Syringe) 12.5 gm PRN Q15MIN PRN IV SEE COMMENTS; Start 11/20/16 at 11:15; Status UNV Guaifenesin (Robitussin Dm) 10 ml PRN Q6HRS PRN PO COUGH; Start 11/20/16 at 11: 15 Alteplase, Recombinant (Cathflo) 2 mg 1X ONCE INT CAT Last administered on 17:56; Start 11/20/16 at 18:00; Stop 11/20/16 at 18:01; Status DC Insulin Aspart (NovoLOG) 10 units TIDAC SQ ; Start 11/21/16 at 11:30 Insulin Detemir (Levemir) 20 units QHS SQ ; Start 11/21/16 at 21:00 Prednisone (Prednisone) 40 mg DAILY PO ; Start 11/21/16 at 11:00; Stop 11/22/16 at 09:01 Prednisone (Prednisone) 30 mg DAILY PO ; Start 11/23/16 at 09:00; Stop 11/24/16 at 09:01 Prednisone (Prednisone) 20 mg DAILY PO ; Start 11/25/16 at 09:00; Stop 11/26/16 at 09:01 Prednisone (Prednisone) 10 mg DAILY PO ; Start 11/27/16 at 09:00; Stop 11/28/16 at 09:01 Prednisone (Prednisone) 5 mg DAILY PO ; Start 11/29/16 at 09:00; Stop 11/30/16 at 09:01 Active Scripts Active Hydrocodone-Apap 7.5-325 (Hydrocodone Bit/Acetaminophen) 1 Each Tablet 1 Tab PO PRN Q6HRS PRN Gave dose at 3:45 May take again after 9:45 Cholestyramine Packet (Cholestyramine (With Sugar)) 4 Gm Powd.pack 4 Gm PO BID92 Cardizem Tablet (Diltiazem Hcl) 30 Mg Tablet 30 Mg PO TID Children's Aspirin (Aspirin) 81 Mg Tab.chew 81 Mg PO DAILYWBKFT Reported Albuterol Sulfate Neb Soln (Albuterol Sulfate) 2.5 Mg/3 Ml Vial.neb 1 Vial NEB PRN Q4HRS Temazepam 15 Mg Capsule 1 Cap PO QHS Montelukast Sodium Tablet (Montelukast Sodium) 10 Mg Tablet 1 Tab PO HS Senokot (Sennosides) 8.6 Mg Tablet 1 Tab PO BID Levothyroxine Sodium 125 Mcg Tablet 1 Tab PO DAILY Colace (Docusate Sodium) 100 Mg Capsule 1 Cap PO BID Advair 250-50 Diskus (Fluticasone/Salmeterol) 1 Each Disk.w.dev 1 Puff IH DAILY Atorvastatin Calcium 10 Mg Tablet 10 Mg PO HS Omeprazole 40 Mg Capsule.dr 1 Cap PO DAILY Proventil Hfa Inhaler (Albuterol Sulfate) 6.7 Gm Hfa.aer.ad 1 Puff IH PRN Q4HRS PRN Vitals/I & O Vital Sign - Last 24 Hours 11/20/16 11/20/16 11/20/16 11/20/16 11:45 13:11 14:45 15:48 Temp 98.2 98.2 Pulse 80 74 Resp 18 B/P (MAP) 113/69 115/70 (85) Pulse Ox 98 94 O2 Delivery Nasal Cannula Nasal Cannula Room Air O2 Flow Rate 2.0 2.0 11/20/16 11/20/16 11/20/16 11/20/16 19:39 19:39 19:48 20:00 Temp 98.8 98.8 Pulse 78 Resp 16 B/P (MAP) 118/72 (87) Pulse Ox 95 95 94 O2 Delivery Room Air Room Air Room Air Nasal Cannula O2 Flow Rate 2.0 11/20/16 11/20/16 11/21/16 11/21/16 21:31 23:48 03:34 05:55 Temp 98.2 98.3 98.2 98.3 Pulse 78 73 56 Resp 18 20 B/P (MAP) 118/72 115/71 (86) 93/54 (67) Pulse Ox 96 96 95 O2 Delivery Room Air Room Air Room Air 11/21/16 11/21/16 11/21/16 11/21/16 05:58 06:27 06:58 07:18 Temp 98.1 98.1 Pulse 67 68 Resp 20 18 18 B/P (MAP) 146/54 (84) 97/60 (72) Pulse Ox 96 95 96 O2 Delivery Room Air Nasal Cannula Room Air Room Air 11/21/16 11/21/16 11/21/16 11/21/16 07:40 08:00 08:44 10:46 Temp 98.4 98.4 Pulse 68 70 Resp 18 B/P (MAP) 97/60 116/68 (84) Pulse Ox 93 97 O2 Delivery Room Air Room Air Room Air Intake and Output 11/20/16 11/20/16 11/21/16 15:00 23:00 07:00 Intake Total 600 ml 400 ml 160 ml Balance 600 ml 400 ml 160 ml DANIELLA DAVILA MD Nov 21, 2016 11:32
[2016-11-21] MEDS: predniSONE 20 MG TABLET PO SCH (13:03)
[2016-11-21] MEDS: ENOXAPARIN 40 MG/0.4 ML SYRINGE. SQ SCH (13:05)
[2016-11-21] MEDS: ATORVASTATIN CALCIUM 10 MG TABLET. PO SCH (20:06)
[2016-11-21] MEDS: MONTELUKAST SODIUM 10 MG TABLET. PO SCH (20:06)
[2016-11-21] MEDS: TEMAZEPAM 15 MG CAPSULE PO SCH (20:06)
[2016-11-21] MEDS: INSULIN DETEMIR 300 UNITS/3 ML INSULN.PEN. SQ SCH (20:13)
[2016-11-22 03:33] VITALS: BP 111/68
[2016-11-22] MEDS: IPRATRPIUM/ALBUTEROL 0.5/2.5MG 3 ML NEBU. NEB SCH ×6 (04:00→22:45)
[2016-11-22] MEDS: LEVOTHYROXINE 125 MCG TABLET PO SCH (06:00)
[2016-11-22 06:14] LABS: BASO % 0 % (0-3); EOS % 0 % (0-3); HEMATOCRIT 31.7 % (36.0-47.0); HEMOGLOBIN 10.3 g/dL (12.0-15.5); LYMPH # 2.5 x10^3/uL (1.0-4.8); LYMPH % 22 % (24-48); MEAN CORPUSCULAR HEMOGLOBIN 25 pg (25-35); MEAN CORPUSCULAR HGB CONC 32 g/dL (31-37); MEAN CORPUSCULAR VOLUME 78 fL (79-100); MONO % 7 % (0-9); NEUT % 71 % (31-73); PLATELET COUNT 267 x10^3/uL (140-400); RED BLOOD COUNT 4.06 x10^6/uL (3.50-5.40); RED CELL DISTRIBUTION WIDTH 15.5 % (11.5-14.5); WHITE BLOOD COUNT 11.3 x10^3/uL (4.0-11.0)
[2016-11-22 06:27] LABS: CALCIUM 7.9 mg/dL (8.5-10.1); CREATININE 0.7 mg/dL (0.6-1.0); GFR 86.9; POTASSIUM 3.7 mmol/L (3.5-5.1)
[2016-11-22 07:00] VITALS: BP 158/53
[2016-11-22] MEDS: DOCUSATE SODIUM 100 MG CAPSULE. PO SCH ×2 (07:25→20:49)
[2016-11-22] MEDS: ASPIRIN CHEWABLE 81 MG TABLET. PO SCH (07:25)
[2016-11-22] MEDS: SENNOSIDES 8.6 MG TABLET PO SCH ×2 (07:25→20:49)
[2016-11-22] MEDS: PANTOPRAZOLE 40 MG TABLET.DR. PO SCH (07:26)
[2016-11-22] MEDS: dilTIAZem HCL 30 MG TABLET PO SCH ×3 (07:26→20:59)
[2016-11-22] MEDS: predniSONE 20 MG TABLET PO SCH (07:26)
[2016-11-22] MEDS: CHOLESTYRAMINE/ASPARTAME 4 GM PACKET PO SCH ×3 (07:27→14:00)
[2016-11-22] MEDS: HYDROcodone/APAP 7.5/325MG 1 TAB TABLET PO PRN ×2 (07:28→20:51)
[2016-11-22] MEDS: INSULIN ASPART 300 UNITS/3 ML INSULN.PEN SQ SCH ×6 (07:30→17:45)
[2016-11-22] MEDS: BUDESONIDE 0.5 MG/2 ML NEBU. NEB SCH ×2 (07:49→18:59)
[2016-11-22 08:06] LABS: PLT ESTIMATE ADEQUATE (ADEQUATE)
[2016-11-22 11:00] VITALS: BP 110/62
[2016-11-22] MEDS: ENOXAPARIN 40 MG/0.4 ML SYRINGE. SQ SCH (12:41)
--- NOTE | 2016-11-22 13:16 | PDOC ---
PULMONARY PROGRESS NOTES Subjective NO SOA FEELS BETTER Vitals Vital Signs Date Time Temp Pulse Resp B/P (MAP) Pulse Ox O2 Delivery O2 Flow Rate FiO2 11/22/16 12:16 Room Air 11/22/16 11:00 97.8 66 18 110/62 (78) 99 97.8 11/22/16 08:28 2.0 General: Alert, No acute distress Lungs: Wheezing (only faint) Cardiovascular: S1, S2 Abdomen: Soft, Non-tender Extremities: No Edema Labs Laboratory Tests Test 11/20/16 16:53 11/20/16 21:09 11/21/16 07:30 11/21/16 11:55 Glucose (Fingerstick) 179 mg/dL (70-99) 294 mg/dL (70-99) 261 mg/dL (70-99) 226 mg/dL (70-99) Test 11/21/16 17:18 11/21/16 20:09 11/22/16 06:00 11/22/16 07:24 Glucose (Fingerstick) 182 mg/dL (70-99) 197 mg/dL (70-99) 115 mg/dL (70-99) White Blood Count 11.3 x10^3/uL (4.0-11.0) Red Blood Count 4.06 x10^6/uL (3.50-5.40) Hemoglobin 10.3 g/dL (12.0-15.5) Hematocrit 31.7 % (36.0-47.0) Mean Corpuscular Volume 78 fL (79-100) Mean Corpuscular Hemoglobin 25 pg (25-35) Mean Corpuscular Hemoglobin Concent 32 g/dL (31-37) Red Cell Distribution Width 15.5 % (11.5-14.5) Platelet Count 267 x10^3/uL (140-400) Neutrophils (%) (Auto) 71 % (31-73) Lymphocytes (%) (Auto) 22 % (24-48) Monocytes (%) (Auto) 7 % (0-9) Eosinophils (%) (Auto) 0 % (0-3) Basophils (%) (Auto) 0 % (0-3) Neutrophils # (Auto) 8.0 x10^3uL (1.8-7.7) Lymphocytes # (Auto) 2.5 x10^3/uL (1.0-4.8) Monocytes # (Auto) 0.8 x10^3/uL (0.0-1.1) Eosinophils # (Auto) 0.0 x10^3/uL (0.0-0.7) Basophils # (Auto) 0.0 x10^3/uL (0.0-0.2) Segmented Neutrophils % 85 % (35-66) Lymphocytes % 14 % (24-48) Monocytes % 1 % (0-10) Platelet Estimate Adequate (ADEQUATE) Sodium Level 141 mmol/L (136-145) Potassium Level 3.7 mmol/L (3.5-5.1) Chloride Level 106 mmol/L (98-107) Carbon Dioxide Level 29 mmol/L (21-32) Anion Gap 6 (6-14) Blood Urea Nitrogen 27 mg/dL (7-20) Creatinine 0.7 mg/dL (0.6-1.0) Estimated GFR (Cockcroft-Gault) 86.9 Glucose Level 153 mg/dL (70-99) Calcium Level 7.9 mg/dL (8.5-10.1) Test 11/22/16 11:49 Glucose (Fingerstick) 217 mg/dL (70-99) Laboratory Tests Test 11/21/16 17:18 11/21/16 20:09 11/22/16 06:00 11/22/16 07:24 Glucose (Fingerstick) 182 mg/dL (70-99) 197 mg/dL (70-99) 115 mg/dL (70-99) White Blood Count 11.3 x10^3/uL (4.0-11.0) Red Blood Count 4.06 x10^6/uL (3.50-5.40) Hemoglobin 10.3 g/dL (12.0-15.5) Hematocrit 31.7 % (36.0-47.0) Mean Corpuscular Volume 78 fL (79-100) Mean Corpuscular Hemoglobin 25 pg (25-35) Mean Corpuscular Hemoglobin Concent 32 g/dL (31-37) Red Cell Distribution Width 15.5 % (11.5-14.5) Platelet Count 267 x10^3/uL (140-400) Neutrophils (%) (Auto) 71 % (31-73) Lymphocytes (%) (Auto) 22 % (24-48) Monocytes (%) (Auto) 7 % (0-9) Eosinophils (%) (Auto) 0 % (0-3) Basophils (%) (Auto) 0 % (0-3) Neutrophils # (Auto) 8.0 x10^3uL (1.8-7.7) Lymphocytes # (Auto) 2.5 x10^3/uL (1.0-4.8) Monocytes # (Auto) 0.8 x10^3/uL (0.0-1.1) Eosinophils # (Auto) 0.0 x10^3/uL (0.0-0.7) Basophils # (Auto) 0.0 x10^3/uL (0.0-0.2) Segmented Neutrophils % 85 % (35-66) Lymphocytes % 14 % (24-48) Monocytes % 1 % (0-10) Platelet Estimate Adequate (ADEQUATE) Sodium Level 141 mmol/L (136-145) Potassium Level 3.7 mmol/L (3.5-5.1) Chloride Level 106 mmol/L (98-107) Carbon Dioxide Level 29 mmol/L (21-32) Anion Gap 6 (6-14) Blood Urea Nitrogen 27 mg/dL (7-20) Creatinine 0.7 mg/dL (0.6-1.0) Estimated GFR (Cockcroft-Gault) 86.9 Glucose Level 153 mg/dL (70-99) Calcium Level 7.9 mg/dL (8.5-10.1) Test 11/22/16 11:49 Glucose (Fingerstick) 217 mg/dL (70-99) Medications Active Scripts Medications Dose Route/Sig Max Daily Dose Days Date Category Dose Instructions Albuterol Sulfate Neb Soln (Albuterol Sulfate) 2.5 Mg/3 Ml Vial.neb 1 Vial NEB PRN Q4HRS 11/17/16 Reported Temazepam 15 Mg Capsule 1 Cap PO QHS 11/17/16 Reported Montelukast Sodium Tablet (Montelukast Sodium) 10 Mg Tablet 1 Tab PO HS 11/17/16 Reported Senokot (Sennosides) 8.6 Mg Tablet 1 Tab PO BID 11/17/16 Reported Levothyroxine Sodium 125 Mcg Tablet 1 Tab PO DAILY 11/17/16 Reported Colace (Docusate Sodium) 100 Mg Capsule 1 Cap PO BID 11/17/16 Reported Advair 250-50 Diskus (Fluticasone/Salmeterol) 1 Each Disk.w.dev 1 Puff IH DAILY 11/17/16 Reported Atorvastatin Calcium 10 Mg Tablet 10 Mg PO HS 06/12/16 Reported Omeprazole 40 Mg Capsule.dr 1 Cap PO DAILY 06/11/16 Reported Proventil Hfa Inhaler (Albuterol Sulfate) 6.7 Gm Hfa.aer.ad 1 Puff IH PRN Q4HRS PRN 06/11/16 Reported Hydrocodone-Apap 7.5-325 (Hydrocodone Bit/Acetaminophen) 1 Each Tablet 1 Tab PO PRN Q6HRS PRN 03/25/16 Rx Gave dose at 3:45 May take again after 9:45 Cholestyramine Packet (Cholestyramine (With Sugar)) 4 Gm Powd.pack 4 Gm PO BID92 03/20/16 Rx Cardizem Tablet (Diltiazem Hcl) 30 Mg Tablet 30 Mg PO TID 03/20/16 Rx Children's Aspirin (Aspirin) 81 Mg Tab.chew 81 Mg PO DAILYWBKFT 02/17/16 Rx Impression . 1. Dyspnea due to AECOPD 2. Diffuse bronchospasm ,due to AECOPD, cannot exclude mild acute diastolic HF/ suspect VCD related to anxiety component 3. h/o oxygen dependant COPD 4. h/o grade II diastolic dysfunction 5. Acute bronchitis Plan . 1.Nebs, pulmicort 2. PO steroid taper 3 prn diuresis 4.Empiric antibiotic 5. oxygen 6. Benzo 7. ct chest with no CHF/ pneumonia, moderate size hiatal hernia. 8. speech eval done. f/u with ENT as OP BRIAN ALLEN MD Nov 22, 2016 13:16
--- NOTE | 2016-11-22 13:53 | PDOC ---
PROGRESS NOTES Chief Complaint Chief Complaint Chief complaint shortness of breath Assessment and plan #1 COPD exacerbation #2 bronchitis #3 history of a traumatic brain injury #4 history of oxygen-dependent COPD #5 history of hypothyroidism HYperglycemia INsomnia History of Present Illness History of Present Illness less wheezy today but still is audible Coughing up more she claims - which is good for her VS ok LAbs WBC 11 - on steroids [facility] resident x 4 mos now PLAN: CPM Dc thursday to U Vitals Vitals Vital Signs Date Time Temp Pulse Resp B/P (MAP) Pulse Ox O2 Delivery O2 Flow Rate FiO2 11/22/16 12:16 Room Air 11/22/16 11:00 97.8 66 18 110/62 (78) 99 97.8 11/22/16 08:28 2.0 Physical Exam General: Alert, Oriented X3, Cooperative, mild distress Heart: Regular rate, Normal S1 Lungs: Wheezing (only faint) Abdomen: Normal bowel sounds Extremities: No clubbing, No edema Skin: No rashes, No breakdown Labs LABS Laboratory Tests Test 11/21/16 17:18 11/21/16 20:09 11/22/16 06:00 11/22/16 07:24 Glucose (Fingerstick) 182 mg/dL (70-99) 197 mg/dL (70-99) 115 mg/dL (70-99) White Blood Count 11.3 x10^3/uL (4.0-11.0) Red Blood Count 4.06 x10^6/uL (3.50-5.40) Hemoglobin 10.3 g/dL (12.0-15.5) Hematocrit 31.7 % (36.0-47.0) Mean Corpuscular Volume 78 fL (79-100) Mean Corpuscular Hemoglobin 25 pg (25-35) Mean Corpuscular Hemoglobin Concent 32 g/dL (31-37) Red Cell Distribution Width 15.5 % (11.5-14.5) Platelet Count 267 x10^3/uL (140-400) Neutrophils (%) (Auto) 71 % (31-73) Lymphocytes (%) (Auto) 22 % (24-48) Monocytes (%) (Auto) 7 % (0-9) Eosinophils (%) (Auto) 0 % (0-3) Basophils (%) (Auto) 0 % (0-3) Neutrophils # (Auto) 8.0 x10^3uL (1.8-7.7) Lymphocytes # (Auto) 2.5 x10^3/uL (1.0-4.8) Monocytes # (Auto) 0.8 x10^3/uL (0.0-1.1) Eosinophils # (Auto) 0.0 x10^3/uL (0.0-0.7) Basophils # (Auto) 0.0 x10^3/uL (0.0-0.2) Segmented Neutrophils % 85 % (35-66) Lymphocytes % 14 % (24-48) Monocytes % 1 % (0-10) Platelet Estimate Adequate (ADEQUATE) Sodium Level 141 mmol/L (136-145) Potassium Level 3.7 mmol/L (3.5-5.1) Chloride Level 106 mmol/L (98-107) Carbon Dioxide Level 29 mmol/L (21-32) Anion Gap 6 (6-14) Blood Urea Nitrogen 27 mg/dL (7-20) Creatinine 0.7 mg/dL (0.6-1.0) Estimated GFR (Cockcroft-Gault) 86.9 Glucose Level 153 mg/dL (70-99) Calcium Level 7.9 mg/dL (8.5-10.1) Test 11/22/16 11:49 Glucose (Fingerstick) 217 mg/dL (70-99) Review of Systems Review of Systems cough, wheeze, all else is neg 14 pt reviewed Assessment and Plan Assessmemt and Plan Problems Medical Problems: (1) COPD exacerbation Status: Acute Problems: Comment Review of Relevant I have reviewed the following items jolene (where applicable) has been applied. Labs Laboratory Tests Test 11/20/16 16:53 11/20/16 21:09 11/21/16 07:30 11/21/16 11:55 Glucose (Fingerstick) 179 mg/dL (70-99) 294 mg/dL (70-99) 261 mg/dL (70-99) 226 mg/dL (70-99) Test 11/21/16 17:18 11/21/16 20:09 11/22/16 06:00 11/22/16 07:24 Glucose (Fingerstick) 182 mg/dL (70-99) 197 mg/dL (70-99) 115 mg/dL (70-99) White Blood Count 11.3 x10^3/uL (4.0-11.0) Red Blood Count 4.06 x10^6/uL (3.50-5.40) Hemoglobin 10.3 g/dL (12.0-15.5) Hematocrit 31.7 % (36.0-47.0) Mean Corpuscular Volume 78 fL (79-100) Mean Corpuscular Hemoglobin 25 pg (25-35) Mean Corpuscular Hemoglobin Concent 32 g/dL (31-37) Red Cell Distribution Width 15.5 % (11.5-14.5) Platelet Count 267 x10^3/uL (140-400) Neutrophils (%) (Auto) 71 % (31-73) Lymphocytes (%) (Auto) 22 % (24-48) Monocytes (%) (Auto) 7 % (0-9) Eosinophils (%) (Auto) 0 % (0-3) Basophils (%) (Auto) 0 % (0-3) Neutrophils # (Auto) 8.0 x10^3uL (1.8-7.7) Lymphocytes # (Auto) 2.5 x10^3/uL (1.0-4.8) Monocytes # (Auto) 0.8 x10^3/uL (0.0-1.1) Eosinophils # (Auto) 0.0 x10^3/uL (0.0-0.7) Basophils # (Auto) 0.0 x10^3/uL (0.0-0.2) Segmented Neutrophils % 85 % (35-66) Lymphocytes % 14 % (24-48) Monocytes % 1 % (0-10) Platelet Estimate Adequate (ADEQUATE) Sodium Level 141 mmol/L (136-145) Potassium Level 3.7 mmol/L (3.5-5.1) Chloride Level 106 mmol/L (98-107) Carbon Dioxide Level 29 mmol/L (21-32) Anion Gap 6 (6-14) Blood Urea Nitrogen 27 mg/dL (7-20) Creatinine 0.7 mg/dL (0.6-1.0) Estimated GFR (Cockcroft-Gault) 86.9 Glucose Level 153 mg/dL (70-99) Calcium Level 7.9 mg/dL (8.5-10.1) Test 11/22/16 11:49 Glucose (Fingerstick) 217 mg/dL (70-99) Laboratory Tests Test 11/21/16 17:18 11/21/16 20:09 11/22/16 06:00 11/22/16 07:24 Glucose (Fingerstick) 182 mg/dL (70-99) 197 mg/dL (70-99) 115 mg/dL (70-99) White Blood Count 11.3 x10^3/uL (4.0-11.0) Red Blood Count 4.06 x10^6/uL (3.50-5.40) Hemoglobin 10.3 g/dL (12.0-15.5) Hematocrit 31.7 % (36.0-47.0) Mean Corpuscular Volume 78 fL (79-100) Mean Corpuscular Hemoglobin 25 pg (25-35) Mean Corpuscular Hemoglobin Concent 32 g/dL (31-37) Red Cell Distribution Width 15.5 % (11.5-14.5) Platelet Count 267 x10^3/uL (140-400) Neutrophils (%) (Auto) 71 % (31-73) Lymphocytes (%) (Auto) 22 % (24-48) Monocytes (%) (Auto) 7 % (0-9) Eosinophils (%) (Auto) 0 % (0-3) Basophils (%) (Auto) 0 % (0-3) Neutrophils # (Auto) 8.0 x10^3uL (1.8-7.7) Lymphocytes # (Auto) 2.5 x10^3/uL (1.0-4.8) Monocytes # (Auto) 0.8 x10^3/uL (0.0-1.1) Eosinophils # (Auto) 0.0 x10^3/uL (0.0-0.7) Basophils # (Auto) 0.0 x10^3/uL (0.0-0.2) Segmented Neutrophils % 85 % (35-66) Lymphocytes % 14 % (24-48) Monocytes % 1 % (0-10) Platelet Estimate Adequate (ADEQUATE) Sodium Level 141 mmol/L (136-145) Potassium Level 3.7 mmol/L (3.5-5.1) Chloride Level 106 mmol/L (98-107) Carbon Dioxide Level 29 mmol/L (21-32) Anion Gap 6 (6-14) Blood Urea Nitrogen 27 mg/dL (7-20) Creatinine 0.7 mg/dL (0.6-1.0) Estimated GFR (Cockcroft-Gault) 86.9 Glucose Level 153 mg/dL (70-99) Calcium Level 7.9 mg/dL (8.5-10.1) Test 11/22/16 11:49 Glucose (Fingerstick) 217 mg/dL (70-99) Medications Current Medications Albuterol/ Ipratropium (Duoneb) 3 ml 1X ONCE NEB Last administered on 07:54; Start 11/17/16 at 07:30; Stop 11/17/16 at 07:33; Status DC Methylprednisolone Sodium Succinate (SOLU-Medrol 125MG VIAL) 125 mg 1X ONCE IV Last administered on 11/17/16 08:27; Start 11/17/16 at 07:30; Stop 11/17/16 at 07:33; Status DC Albuterol Sulfate (Ventolin Neb Soln) 10 mg 1X ONCE CONT NEB Last administered on 11/17/16 09:22; Start 11/17/16 at 09:15; Stop 11/17/16 at 09:16 ; Status DC Ondansetron HCl (Zofran) 4 mg PRN Q8HRS PRN IV NAUSEA/VOMITING; Start 11/17/16 at 09:30; Stop 11/18/16 at 09:29; Status DC Acetaminophen (Tylenol) 650 mg PRN Q4HRS PRN PO FEVER; Start 11/17/16 at 09:30 ; Stop 11/18/16 at 09:29; Status DC Albuterol/ Ipratropium (Duoneb) 3 ml RTQID NEB Last administered on 11/17/16 12:05; Start 11/17/16 at 12:00; Stop 11/17/16 at 12:47; Status DC Insulin Aspart (NovoLOG) 0-5 UNITS TIDWMEALS SQ Last administered on 11/20/16 09:34; Start 11/17/16 at 12:00; Stop 11/20/16 at 11:08; Status DC Dextrose (Dextrose 50%-Water Syringe) 12.5 gm PRN Q15MIN PRN IV SEE COMMENTS; Start 11/17/16 at 09:30 Methylprednisolone Sodium Succinate (SOLU-Medrol 40MG VIAL) 40 mg Q12HR IV ; Start 11/17/16 at 21:00; Stop 11/17/16 at 21:00; Status DC Albuterol Sulfate (Ventolin Neb Soln) 2.5 mg PRN Q4HRS PRN NEB SHORTNESS OF BREATH Last administered on 11/21/16 05:55; Start 11/17/16 at 10:30 Aspirin (Children'S Aspirin) 81 mg DAILYWBKFT PO Last administered on 07:25; Start 11/17/16 at 12:00 Atorvastatin Calcium (Lipitor) 10 mg HS PO Last administered on 11/21/16 20:06 ; Start 11/17/16 at 21:00 Diltiazem HCl (Cardizem) 30 mg TID PO Last administered on 11/22/16 07:26; Start 11/17/16 at 11:00 Docusate Sodium (Colace) 100 mg BID PO Last administered on 11/22/16 07:25; Start 11/17/16 at 11:30 Acetaminophen/ Hydrocodone Bitart (Lortab 7.5/325) 1 tab PRN Q6HRS PRN PO PAIN Last administered on 11/22/16 07:28; Start 11/17/16 at 10:30 Levothyroxine Sodium (Synthroid) 125 mcg DAILY07 PO Last administered on 06:00; Start 11/17/16 at 15:30 Montelukast Sodium (Singulair) 10 mg HS PO Last administered on 11/21/16 20:06 ; Start 11/17/16 at 21:00 Sennosides (Senna) 8.6 mg BID PO Last administered on 11/22/16 07:25; Start at 11:30 Temazepam (Restoril) 15 mg QHS PO Last administered on 11/21/16 20:06; Start 11/17/16 at 21:00 Cholestyramine Resin (Questran Light) 4 gm BID92 PO Last administered on 09:23; Start 11/17/16 at 11:30 Non-Formulary Medication 1 puff DAILY IH ; Start 11/18/16 at 09:00; Stop at 09:00; Status DC Pantoprazole Sodium (Protonix) 40 mg DAILYAC PO Last administered on 11/22/16 07:26; Start 11/17/16 at 11:30 Albuterol Sulfate (Ventolin Neb Soln) 2.5 mg Q6HRS NEB ; Start 11/17/16 at 12:00 ; Stop 11/17/16 at 12:00; Status DC Budesonide (Pulmicort) 0.5 mg RTBID NEB Last administered on 11/22/16 07:49; Start 11/17/16 at 11:30 Methylprednisolone Sodium Succinate (SOLU-Medrol 125MG VIAL) 60 mg Q8HRS IV Last administered on 11/19/16 05:44; Start 11/17/16 at 14:00; Stop 11/19/16 at 13:07; Status DC Albuterol/ Ipratropium (Duoneb) 3 ml Q4HRS NEB Last administered on 11/22/16 12:16; Start 11/17/16 at 16:00 Levofloxacin (Levaquin) 500 mg DAILY06 PO Last administered on 11/22/16 06:00 ; Start 11/17/16 at 13:00 Furosemide (Lasix) 40 mg 1X ONCE IVP Last administered on 11/17/16 14:08; Start 11/17/16 at 13:00; Stop 11/17/16 at 13:01; Status DC Enoxaparin Sodium (Lovenox Per Pharmacy Prophylaxis Dosing) 1 each PRN DAILY PRN MC SEE COMMENTS; Start 11/18/16 at 11:45; Stop 11/18/16 at 14:09; Status DC Enoxaparin Sodium (Lovenox 40mg Syringe) 40 mg Q24H SQ Last administered on 12:41; Start 11/18/16 at 12:00 Methylprednisolone Sodium Succinate (SOLU-Medrol 125MG VIAL) 60 mg Q6HRS IV Last administered on 11/21/16 05:49; Start 11/19/16 at 13:30; Stop 11/21/16 at 09:36; Status DC Alteplase, Recombinant (Cathflo) 2 mg 1X ONCE INT CAT Last administered on 00:59; Start 11/20/16 at 01:00; Stop 11/20/16 at 01:01; Status DC Acetaminophen (Tylenol) 500 mg PRN Q6HRS PRN PO MILD PAIN / TEMP; Start at 11:15 Ondansetron HCl (Zofran) 4 mg PRN Q6HRS PRN IV NAUSEA/VOMITING; Start 11/20/16 at 11:15 Insulin Aspart (NovoLOG) 0-9 UNITS TIDWMEALS SQ Last administered on 11/22/16 12:43; Start 11/20/16 at 12:00 Dextrose (Dextrose 50%-Water Syringe) 12.5 gm PRN Q15MIN PRN IV SEE COMMENTS; Start 11/20/16 at 11:15; Status UNV Guaifenesin (Robitussin Dm) 10 ml PRN Q6HRS PRN PO COUGH; Start 11/20/16 at 11: 15 Alteplase, Recombinant (Cathflo) 2 mg 1X ONCE INT CAT Last administered on 17:56; Start 11/20/16 at 18:00; Stop 11/20/16 at 18:01; Status DC Insulin Aspart (NovoLOG) 10 units TIDAC SQ Last administered on 11/22/16 12:44 ; Start 11/21/16 at 11:30 Insulin Detemir (Levemir) 20 units QHS SQ Last administered on 11/21/16 20:13 ; Start 11/21/16 at 21:00 Prednisone (Prednisone) 40 mg DAILY PO Last administered on 11/22/16 07:26; Start 11/21/16 at 11:00; Stop 11/22/16 at 09:01; Status DC Prednisone (Prednisone) 30 mg DAILY PO ; Start 11/23/16 at 09:00; Stop 11/24/16 at 09:01 Prednisone (Prednisone) 20 mg DAILY PO ; Start 11/25/16 at 09:00; Stop 11/26/16 at 09:01 Prednisone (Prednisone) 10 mg DAILY PO ; Start 11/27/16 at 09:00; Stop 11/28/16 at 09:01 Prednisone (Prednisone) 5 mg DAILY PO ; Start 11/29/16 at 09:00; Stop 11/30/16 at 09:01 Active Scripts Active Hydrocodone-Apap 7.5-325 (Hydrocodone Bit/Acetaminophen) 1 Each Tablet 1 Tab PO PRN Q6HRS PRN Gave dose at 3:45 May take again after 9:45 Cholestyramine Packet (Cholestyramine (With Sugar)) 4 Gm Powd.pack 4 Gm PO BID92 Cardizem Tablet (Diltiazem Hcl) 30 Mg Tablet 30 Mg PO TID Children's Aspirin (Aspirin) 81 Mg Tab.chew 81 Mg PO DAILYWBKFT Reported Albuterol Sulfate Neb Soln (Albuterol Sulfate) 2.5 Mg/3 Ml Vial.neb 1 Vial NEB PRN Q4HRS Temazepam 15 Mg Capsule 1 Cap PO QHS Montelukast Sodium Tablet (Montelukast Sodium) 10 Mg Tablet 1 Tab PO HS Senokot (Sennosides) 8.6 Mg Tablet 1 Tab PO BID Levothyroxine Sodium 125 Mcg Tablet 1 Tab PO DAILY Colace (Docusate Sodium) 100 Mg Capsule 1 Cap PO BID Advair 250-50 Diskus (Fluticasone/Salmeterol) 1 Each Disk.w.dev 1 Puff IH DAILY Atorvastatin Calcium 10 Mg Tablet 10 Mg PO HS Omeprazole 40 Mg Capsule.dr 1 Cap PO DAILY Proventil Hfa Inhaler (Albuterol Sulfate) 6.7 Gm Hfa.aer.ad 1 Puff IH PRN Q4HRS PRN Vitals/I & O Vital Sign - Last 24 Hours 11/21/16 11/21/16 11/21/16 11/21/16 15:00 16:51 17:39 19:38 Temp 97.8 97.8 Pulse 77 77 Resp 18 B/P (MAP) 104/56 (72) 104/56 Pulse Ox 97 O2 Delivery Room Air Room Air Room Air 11/21/16 11/21/16 11/21/16 11/21/16 19:51 20:14 20:18 23:12 Temp 98.1 98.1 98.1 98.1 Pulse 66 66 63 Resp 16 20 B/P (MAP) 93/54 (67) 93/54 95/62 (73) Pulse Ox 93 96 96 O2 Delivery Room Air Room Air Room Air 11/22/16 11/22/16 11/22/16 11/22/16 03:33 07:00 07:26 07:28 Temp 98.2 97.9 98.2 97.9 Pulse 58 65 65 Resp 20 18 18 B/P (MAP) 111/68 (82) 158/53 (88) 158/53 Pulse Ox 100 97 O2 Delivery Room Air Room Air Room Air 11/22/16 11/22/16 11/22/16 11/22/16 07:49 08:00 08:28 11:00 Temp 97.8 97.8 Pulse 66 Resp 16 18 B/P (MAP) 110/62 (78) Pulse Ox 95 95 99 O2 Delivery Room Air Room Air Room Air Room Air O2 Flow Rate 2.0 11/22/16 12:16 O2 Delivery Room Air Intake and Output 11/21/16 11/21/16 11/22/16 15:00 23:00 07:00 Intake Total 240 ml 600 ml 210 ml Output Total 750 ml Balance 240 ml 600 ml -540 ml DANIELLA DAVILA MD Nov 22, 2016 13:53
[2016-11-22 15:00] VITALS: BP 108/56
[2016-11-22 19:25] VITALS: BP 95/43
[2016-11-22] MEDS: TEMAZEPAM 15 MG CAPSULE PO SCH (20:49)
[2016-11-22] MEDS: MONTELUKAST SODIUM 10 MG TABLET. PO SCH (20:49)
[2016-11-22] MEDS: ATORVASTATIN CALCIUM 10 MG TABLET. PO SCH (20:49)
[2016-11-22] MEDS: INSULIN DETEMIR 300 UNITS/3 ML INSULN.PEN. SQ SCH (20:59)
[2016-11-22 23:35] VITALS: BP 72/44
[2016-11-23 00:23] VITALS: BP 103/59
[2016-11-23] MEDS: IPRATRPIUM/ALBUTEROL 0.5/2.5MG 3 ML NEBU. NEB SCH ×4 (03:11→15:09)
[2016-11-23 03:40] VITALS: BP 95/38
[2016-11-23] MEDS: HYDROcodone/APAP 7.5/325MG 1 TAB TABLET PO PRN ×2 (04:03→10:11)
[2016-11-23] MEDS: LEVOTHYROXINE 125 MCG TABLET PO SCH (06:10)
[2016-11-23 07:00] VITALS: BP 99/55
[2016-11-23] MEDS: BUDESONIDE 0.5 MG/2 ML NEBU. NEB SCH (07:15)
[2016-11-23] MEDS: INSULIN ASPART 300 UNITS/3 ML INSULN.PEN SQ SCH ×4 (07:30→12:05)
[2016-11-23] MEDS: SENNOSIDES 8.6 MG TABLET PO SCH (09:00)
[2016-11-23] MEDS ORDERED: predniSONE 20 MG TABLET PO SCH (09:00)
[2016-11-23] MEDS: DOCUSATE SODIUM 100 MG CAPSULE. PO SCH (09:00)
[2016-11-23] MEDS: ASPIRIN CHEWABLE 81 MG TABLET. PO SCH (09:00)
[2016-11-23] MEDS: dilTIAZem HCL 30 MG TABLET PO SCH (09:00)
[2016-11-23] MEDS: CHOLESTYRAMINE/ASPARTAME 4 GM PACKET PO SCH ×2 (09:00→13:50)
[2016-11-23] MEDS: PANTOPRAZOLE 40 MG TABLET.DR. PO SCH (09:01)
[2016-11-23 11:00] VITALS: BP 95/46
[2016-11-23] MEDS: ENOXAPARIN 40 MG/0.4 ML SYRINGE. SQ SCH (12:01)
--- NOTE | 2016-11-23 13:13 | PDOC ---
PULMONARY PROGRESS NOTES Subjective NO SOA FEELS BETTER Vitals Vital Signs Date Time Temp Pulse Resp B/P (MAP) Pulse Ox O2 Delivery O2 Flow Rate FiO2 11/23/16 11:37 94 Room Air 11/23/16 11:11 16 11/23/16 11:00 98.2 76 95/46 (62) 98.2 11/22/16 08:28 2.0 General: Alert, No acute distress Lungs: Wheezing (only faint) Cardiovascular: S1, S2 Abdomen: Soft, Non-tender Extremities: No Edema Labs Laboratory Tests Test 11/21/16 17:18 11/21/16 20:09 11/22/16 06:00 11/22/16 07:24 Glucose (Fingerstick) 182 mg/dL (70-99) 197 mg/dL (70-99) 115 mg/dL (70-99) White Blood Count 11.3 x10^3/uL (4.0-11.0) Red Blood Count 4.06 x10^6/uL (3.50-5.40) Hemoglobin 10.3 g/dL (12.0-15.5) Hematocrit 31.7 % (36.0-47.0) Mean Corpuscular Volume 78 fL (79-100) Mean Corpuscular Hemoglobin 25 pg (25-35) Mean Corpuscular Hemoglobin Concent 32 g/dL (31-37) Red Cell Distribution Width 15.5 % (11.5-14.5) Platelet Count 267 x10^3/uL (140-400) Neutrophils (%) (Auto) 71 % (31-73) Lymphocytes (%) (Auto) 22 % (24-48) Monocytes (%) (Auto) 7 % (0-9) Eosinophils (%) (Auto) 0 % (0-3) Basophils (%) (Auto) 0 % (0-3) Neutrophils # (Auto) 8.0 x10^3uL (1.8-7.7) Lymphocytes # (Auto) 2.5 x10^3/uL (1.0-4.8) Monocytes # (Auto) 0.8 x10^3/uL (0.0-1.1) Eosinophils # (Auto) 0.0 x10^3/uL (0.0-0.7) Basophils # (Auto) 0.0 x10^3/uL (0.0-0.2) Segmented Neutrophils % 85 % (35-66) Lymphocytes % 14 % (24-48) Monocytes % 1 % (0-10) Platelet Estimate Adequate (ADEQUATE) Sodium Level 141 mmol/L (136-145) Potassium Level 3.7 mmol/L (3.5-5.1) Chloride Level 106 mmol/L (98-107) Carbon Dioxide Level 29 mmol/L (21-32) Anion Gap 6 (6-14) Blood Urea Nitrogen 27 mg/dL (7-20) Creatinine 0.7 mg/dL (0.6-1.0) Estimated GFR (Cockcroft-Gault) 86.9 Glucose Level 153 mg/dL (70-99) Calcium Level 7.9 mg/dL (8.5-10.1) Test 11/22/16 11:49 11/22/16 16:42 11/22/16 20:55 11/23/16 07:32 Glucose (Fingerstick) 217 mg/dL (70-99) 171 mg/dL (70-99) 114 mg/dL (70-99) 75 mg/dL (70-99) Test 11/23/16 11:32 Glucose (Fingerstick) 244 mg/dL (70-99) Laboratory Tests Test 11/22/16 16:42 11/22/16 20:55 11/23/16 07:32 11/23/16 11:32 Glucose (Fingerstick) 171 mg/dL (70-99) 114 mg/dL (70-99) 75 mg/dL (70-99) 244 mg/dL (70-99) Medications Active Scripts Medications Dose Route/Sig Max Daily Dose Days Date Category Dose Instructions Albuterol Sulfate Neb Soln (Albuterol Sulfate) 2.5 Mg/3 Ml Vial.neb 1 Vial NEB PRN Q4HRS 11/17/16 Reported Temazepam 15 Mg Capsule 1 Cap PO QHS 11/17/16 Reported Montelukast Sodium Tablet (Montelukast Sodium) 10 Mg Tablet 1 Tab PO HS 11/17/16 Reported Senokot (Sennosides) 8.6 Mg Tablet 1 Tab PO BID 11/17/16 Reported Levothyroxine Sodium 125 Mcg Tablet 1 Tab PO DAILY 11/17/16 Reported Colace (Docusate Sodium) 100 Mg Capsule 1 Cap PO BID 11/17/16 Reported Advair 250-50 Diskus (Fluticasone/Salmeterol) 1 Each Disk.w.dev 1 Puff IH DAILY 11/17/16 Reported Atorvastatin Calcium 10 Mg Tablet 10 Mg PO HS 06/12/16 Reported Omeprazole 40 Mg Capsule.dr 1 Cap PO DAILY 06/11/16 Reported Proventil Hfa Inhaler (Albuterol Sulfate) 6.7 Gm Hfa.aer.ad 1 Puff IH PRN Q4HRS PRN 06/11/16 Reported Hydrocodone-Apap 7.5-325 (Hydrocodone Bit/Acetaminophen) 1 Each Tablet 1 Tab PO PRN Q6HRS PRN 03/25/16 Rx Gave dose at 3:45 May take again after 9:45 Cholestyramine Packet (Cholestyramine (With Sugar)) 4 Gm Powd.pack 4 Gm PO BID92 03/20/16 Rx Cardizem Tablet (Diltiazem Hcl) 30 Mg Tablet 30 Mg PO TID 03/20/16 Rx Children's Aspirin (Aspirin) 81 Mg Tab.chew 81 Mg PO DAILYWBKFT 02/17/16 Rx Impression . 1. Dyspnea due to AECOPD 2. Diffuse bronchospasm ,due to AECOPD, wheezing persists, mostly upper airway despite aggressive treatment, suspect VCD related to anxiety component 3. h/o oxygen dependant COPD 4. h/o grade II diastolic dysfunction 5. Acute bronchitis 6. Will try MgSO4 today Plan . 1.Nebs, / pulmicort 2. PO steroid 3 prn diuresis 4.Empiric antibiotic 5. oxygen 6. Benzo 7. ct chest with no CHF/ pneumonia, moderate size hiatal hernia. 8. speech eval done. f/u with ENT as OP 9. MgSO4 today BRIAN ALLEN MD Nov 23, 2016 13:13
[2016-11-23] MEDS ORDERED: MAGNESIUM SULFATE 2GM 50 ML IV ONE (14:00)
--- NOTE | 2016-11-23 14:17 | PDOC3 ---
Discharge Summary Visit Information Date of Admission: Nov 17, 2016 Date of Discharge: Nov 23, 2016 Admitting Diagnosis Comment: Assessment and plan #1 COPD exacerbation #2 bronchitis #3 history of a traumatic brain injury #4 history of oxygen-dependent COPD #5 history of hypothyroidism HYperglycemia INsomnia Final Diagnosis Problems Medical Problems: (1) COPD exacerbation Status: Acute Brief Hospital Course Allergies Allergies Coded Allergies Type Severity Reaction Last Updated Verified Penicillins Allergy Intermediate Seizure, Rash 06/12/16 Yes I S O L A T I O N *CONTACT* Allergy Unknown 09/01/16 Yes aspirin Adverse Reaction Intermediate Nausea 06/12/16 Yes codeine Adverse Reaction Intermediate Nausea 06/12/16 Yes Vital Signs Vital Signs Date Time Temp Pulse Resp B/P (MAP) Pulse Ox O2 Delivery O2 Flow Rate FiO2 11/23/16 11:37 94 Room Air 11/23/16 11:11 16 11/23/16 11:00 98.2 76 95/46 (62) 98.2 11/22/16 08:28 2.0 Lab Results Laboratory Tests Test 11/21/16 17:18 11/21/16 20:09 11/22/16 06:00 11/22/16 07:24 Glucose (Fingerstick) 182 mg/dL (70-99) 197 mg/dL (70-99) 115 mg/dL (70-99) White Blood Count 11.3 x10^3/uL (4.0-11.0) Red Blood Count 4.06 x10^6/uL (3.50-5.40) Hemoglobin 10.3 g/dL (12.0-15.5) Hematocrit 31.7 % (36.0-47.0) Mean Corpuscular Volume 78 fL (79-100) Mean Corpuscular Hemoglobin 25 pg (25-35) Mean Corpuscular Hemoglobin Concent 32 g/dL (31-37) Red Cell Distribution Width 15.5 % (11.5-14.5) Platelet Count 267 x10^3/uL (140-400) Neutrophils (%) (Auto) 71 % (31-73) Lymphocytes (%) (Auto) 22 % (24-48) Monocytes (%) (Auto) 7 % (0-9) Eosinophils (%) (Auto) 0 % (0-3) Basophils (%) (Auto) 0 % (0-3) Neutrophils # (Auto) 8.0 x10^3uL (1.8-7.7) Lymphocytes # (Auto) 2.5 x10^3/uL (1.0-4.8) Monocytes # (Auto) 0.8 x10^3/uL (0.0-1.1) Eosinophils # (Auto) 0.0 x10^3/uL (0.0-0.7) Basophils # (Auto) 0.0 x10^3/uL (0.0-0.2) Segmented Neutrophils % 85 % (35-66) Lymphocytes % 14 % (24-48) Monocytes % 1 % (0-10) Platelet Estimate Adequate (ADEQUATE) Sodium Level 141 mmol/L (136-145) Potassium Level 3.7 mmol/L (3.5-5.1) Chloride Level 106 mmol/L (98-107) Carbon Dioxide Level 29 mmol/L (21-32) Anion Gap 6 (6-14) Blood Urea Nitrogen 27 mg/dL (7-20) Creatinine 0.7 mg/dL (0.6-1.0) Estimated GFR (Cockcroft-Gault) 86.9 Glucose Level 153 mg/dL (70-99) Calcium Level 7.9 mg/dL (8.5-10.1) Test 11/22/16 11:49 11/22/16 16:42 11/22/16 20:55 11/23/16 07:32 Glucose (Fingerstick) 217 mg/dL (70-99) 171 mg/dL (70-99) 114 mg/dL (70-99) 75 mg/dL (70-99) Test 11/23/16 11:32 Glucose (Fingerstick) 244 mg/dL (70-99) Laboratory Tests Test 11/22/16 16:42 11/22/16 20:55 11/23/16 07:32 11/23/16 11:32 Glucose (Fingerstick) 171 mg/dL (70-99) 114 mg/dL (70-99) 75 mg/dL (70-99) 244 mg/dL (70-99) Brief Hospital Course Ms. Graves is a 56 old [facility] resident,admitted for COPD exacerbation, CXR neg, NO antibiotics, but wheezy badly needed to stay extra more couple days more than usual, Was on high doses steroids, BS actually ok,. BP low side, needing to hold metoprolol and dec cardizem to 30 BID from TID Pt seen and examined Dw pulmo, mother and pt an RN. BAck to [place] today MAr done Time 34 mins > 50% counselling mom etc Discharge Information Condition at Discharge: Improved, Stable Disposition/Orders: Other ([facility]) Scheduled Albuterol Sulfate (Albuterol Sulfate Neb Soln), 1 VIAL NEB PRN Q4HRS, (Reported) Aspirin (Children's Aspirin), 81 MG PO DAILYWBKFT Atorvastatin Calcium (Atorvastatin Calcium), 10 MG PO HS, (Reported) Cholestyramine (With Sugar) (Cholestyramine Packet), 4 GM PO BID92 Diltiazem Hcl (Cardizem Tablet), 30 MG PO TID Docusate Sodium (Colace), 1 CAP PO BID, (Reported) Fluticasone/Salmeterol (Advair 250-50 Diskus), 1 PUFF IH DAILY, (Reported) Levothyroxine Sodium (Levothyroxine Sodium), 1 TAB PO DAILY, (Reported) Montelukast Sodium (Montelukast Sodium Tablet), 1 TAB PO HS, (Reported) Omeprazole (Omeprazole), 1 CAP PO DAILY, (Reported) Sennosides (Senokot), 1 TAB PO BID, (Reported) Temazepam (Temazepam), 1 CAP PO QHS, (Reported) Scheduled PRN Albuterol Sulfate (Proventil Hfa Inhaler), 1 PUFF IH PRN Q4HRS PRN for SHORTNESS OF BREATH, (Reported) Hydrocodone Bit/Acetaminophen (Hydrocodone-Apap 7.5-325 ), 1 TAB PO PRN Q6HRS PRN for PAIN Discontinued Medications Famotidine (Famotidine), 20 MG PO BID, (Reported) Levothyroxine Sodium (Levothyroxine Sodium), 1 TAB PO DAILY, (Reported) [synt], (Reported) DANIELAL DAVILA MD Nov 23, 2016 14:17
[2016-11-23] MEDS ORDERED: DILT30TA26 PO (14:18)
[2016-11-23] MEDS ORDERED: dilTIAZem HCL 30 MG TABLET PO SCH (21:00)
[2016-11-25] MEDS ORDERED: predniSONE 20 MG TABLET PO SCH (09:00)
[2016-11-27] MEDS ORDERED: predniSONE 10 MG TABLET PO SCH (09:00)
[2016-11-29] MEDS ORDERED: predniSONE 5 MG TABLET PO SCH (09:00)
== END 2016-11-23 15:35 | DRG 192 ==
LOC: ER 07:22 → 6 SOUTH 09:12
PROVIDERS: ADMIT Internal Medicine; ATTEND Internal Medicine
DX: J44.0 Chronic obstructive pulmonary disease with (acute) lower respiratory infection (principal); J44.1 Chronic obstructive pulmonary disease with (acute) exacerbation; J20.9 Acute bronchitis, unspecified; E03.9 Hypothyroidism, unspecified; E11.65 Type 2 diabetes mellitus with hyperglycemia; I10 Essential (primary) hypertension; I25.10 Atherosclerotic heart disease of native coronary artery without angina pectoris; F41.9 Anxiety disorder, unspecified; K21.9 Gastro-esophageal reflux disease without esophagitis; Z82.49 Family history of ischemic heart disease and other diseases of the circulatory system; Z83.3 Family history of diabetes mellitus; Z87.820 Personal history of traumatic brain injury; Z99.81 Dependence on supplemental oxygen; Z88.0 Allergy status to penicillin; Z88.5 Allergy status to narcotic agent; Z88.6 Allergy status to analgesic agent; Z90.49 Acquired absence of other specified parts of digestive tract; Z90.710 Acquired absence of both cervix and uterus; Z87.891 Personal history of nicotine dependence
CPT/HCPCS: 36415; 36569; 71010; 71250; 80048; 80053; 82962; 83880; 84484; 85007; 85027; 87641; 93005; 94250; 94640; 94644; 94760; 96374; A6539; J1650; J1815; J1940; J2930; J2997; J7512; J7613; J7620; J7626; 92524; 97110; 97116; 97530; 97535; 99285-25

== ENCOUNTER 2016-12-06 11:04 | Emergency (ER) | payer OTHER ==
[~2016-12-06] VITALS: Ht 147.3 cm; Wt 68.0 kg
[~2016-12-06 11:04] MED LIST changes: +ALBU2.5V5 NEB; +DOCU-109 PO; +LEVO125T5 PO; +MONT10TA9 PO; +SENN8.6T99 PO; +TEMA15CA PO
[2016-12-06] MEDS ORDERED: IV NORMAL SALINE 1000ML BAG 1,000 ML IV SCH (12:08)
[2016-12-06] MEDS ORDERED: MAGNESIUM SULFATE 1GM 100 ML IV ONE (12:15)
[2016-12-06] MEDS ORDERED: methylPREDNISolone SOD SUCC PF 125 MG/2 ML VIAL. IV ONE (12:15)
[2016-12-06] MEDS ORDERED: IPRATRPIUM/ALBUTEROL 0.5/2.5MG 3 ML NEBU. NEB ONE (12:15)
[2016-12-06 12:32] LABS: BASO # 0.1 x10^3/uL (0.0-0.2); BASO % 1 % (0-3); EOS % 1 % (0-3); HEMATOCRIT 32.5 % (36.0-47.0); HEMOGLOBIN 10.4 g/dL (12.0-15.5); LYMPH # 1.6 x10^3/uL (1.0-4.8); LYMPH % 20 % (24-48); MEAN CORPUSCULAR HEMOGLOBIN 25 pg (25-35); MEAN CORPUSCULAR HGB CONC 32 g/dL (31-37); MEAN CORPUSCULAR VOLUME 78 fL (79-100); MONO % 6 % (0-9); NEUT % 72 % (31-73); PLATELET COUNT 239 x10^3/uL (140-400); RED BLOOD COUNT 4.15 x10^6/uL (3.50-5.40); RED CELL DISTRIBUTION WIDTH 16.2 % (11.5-14.5); WHITE BLOOD COUNT 7.8 x10^3/uL (4.0-11.0)
[2016-12-06 12:40] LABS: CALCIUM 9.2 mg/dL (8.5-10.1); CREATININE 0.8 mg/dL (0.6-1.0); GFR 74.5; POTASSIUM 3.6 mmol/L (3.5-5.1)
[2016-12-06 12:46] LABS: ALBUMIN 3.1 g/dL (3.4-5.0); ALBUMIN/GLOBULIN RATIO 0.9 (1.0-1.7); TOTAL BILIRUBIN 0.2 mg/dL (0.2-1.0); TOTAL PROTEIN 6.7 g/dL (6.4-8.2)
--- NOTE | 2016-12-06 12:47 | RAD ---
Portable AP upright view CXR: Clinical indications: Weakness. History of stroke. Comparison: November 17, 2016. Findings: No acute lung infiltrate or pleural effusion or pulmonary edema or lung mass or pneumothorax is seen. The heart size, pulmonary vasculature, mediastinum and both an are stable. Impression: No acute radiographic abnormality is seen.
--- NOTE | 2016-12-06 13:02 | PHYS DOC ---
Past Medical History Past Medical History: Anemia, Anxiety, Asthma, Cancer, COPD, CVA, Diabetes- Type II, SC, Stroke Additional Past Medical Histor: Cranial bleed, thyroid cancer Past Surgical History: Cholecystectomy, , Hysterectomy, Tubal ligation Additional Past Surgical Histo: IVC filter placed after stroke, Cardiac Cath, thyroidectomy Alcohol Use: None Drug Use: None Adult General Chief Complaint Chief Complaint: SHORTNESS OF BREATH HPI HPI Patient is a 56 year old female who presents with complaint of shortness of breath and cough. Patient has history of COPD. Patient started having worsening symptoms yesterday per swabber. The patient continued to have worsening symptoms despite use of albuterol at home which is why the swabber brought the patient to the emergency department for evaluation. Patient history of intellectual disability which is why the patient currently has a swabber. The patient denies any chest pain currently. Patient does admit to increased work of breathing but states that her cough has been nonproductive. Patient recently had a COPD exacerbation and was on treatment with prednisone which she has discontinued approximately one week ago. Patient has had no fevers. Review of Systems Review of Systems Constitutional: Denies fever or chills [] Eyes: Denies change in visual acuity, redness, or eye pain [] HENT: Denies nasal congestion or sore throat [] Respiratory: Cough, shortness of breath [] Cardiovascular: Denies chest pain or edema [] GI: Denies abdominal pain, nausea, vomiting, bloody stools or diarrhea [] : Denies dysuria or hematuria [] Musculoskeletal: Denies back pain or joint pain [] Integument: Denies rash or skin lesions [] Neurologic: Denies headache, focal weakness or sensory changes [] Current Medications Current Medications Current Medications Medications (Trade) Dose Ordered Sig/Kyle Start Time Stop Time Status Last Admin Dose Admin Albuterol/ Ipratropium (Duoneb) 6 ml 1X ONCE 12/06/16 12:15 12/06/16 12:19 DC 12/06/16 12:15 6 ML Magnesium Sulfate/ Dextrose 100 ml @ 100 mls/hr 1X ONCE 12/06/16 12:15 12/06/16 13:14 DC 12/06/16 12:38 100 MLS/HR Methylprednisolone Sodium Succinate (SOLU-Medrol 125MG VIAL) 125 mg 1X ONCE 12/06/16 12:15 12/06/16 12:19 DC 12/06/16 12:37 125 MG Sodium Chloride 1,000 ml @ 100 mls/hr Q10H 12/06/16 12:08 12/06/16 15:15 DC 12/06/16 12:37 100 MLS/HR Allergies Allergies Allergies Coded Allergies Type Severity Reaction Last Updated Verified Penicillins Allergy Intermediate Seizure, Rash 06/12/16 Yes I S O L A T I O N *CONTACT* Allergy Unknown 09/01/16 Yes aspirin Adverse Reaction Intermediate Nausea 06/12/16 Yes codeine Adverse Reaction Intermediate Nausea 06/12/16 Yes Physical Exam Physical Exam Constitutional: Alert, afebrile, short stature, mild to moderate respiratory distress. [] HENT: Normocephalic, atraumatic, bilateral external ears normal, oropharynx moist, no oral exudates, nose normal. [] Eyes: PERRLA, EOMI, conjunctiva normal, no discharge. [] Neck: Normal range of motion, no tenderness, supple, no stridor. [] Cardiovascular:Heart rate regular rhythm, no murmur [] Lungs & Thorax: Prolonged expiratory phase, expiratory wheezes bilaterally, no rales [] Abdomen: Bowel sounds normal, soft, no tenderness, no masses, no pulsatile masses. [] Skin: Warm, dry, no erythema, no rash. [] Back: No tenderness, no CVA tenderness. [] Extremities: No tenderness, no cyanosis, no clubbing, ROM intact, no edema. [] Neurologic: Alert and oriented X 3, normal motor function, normal sensory function, no focal deficits noted. [] Current Patient Data Vital Signs Vital Signs Date Time Temp Pulse Resp B/P (MAP) Pulse Ox O2 Delivery O2 Flow Rate FiO2 12/06/16 12:39 97 Room Air 12/06/16 11:48 98.9 89 18 123/71 (88) 98.9 Lab Values Laboratory Tests Test 12/06/16 12:21 White Blood Count 7.8 x10^3/uL (4.0-11.0) Red Blood Count 4.15 x10^6/uL (3.50-5.40) Hemoglobin 10.4 g/dL (12.0-15.5) L Hematocrit 32.5 % (36.0-47.0) L Mean Corpuscular Volume 78 fL (79-100) L Mean Corpuscular Hemoglobin 25 pg (25-35) Mean Corpuscular Hemoglobin Concent 32 g/dL (31-37) Red Cell Distribution Width 16.2 % (11.5-14.5) H Platelet Count 239 x10^3/uL (140-400) Neutrophils (%) (Auto) 72 % (31-73) Lymphocytes (%) (Auto) 20 % (24-48) L Monocytes (%) (Auto) 6 % (0-9) Eosinophils (%) (Auto) 1 % (0-3) Basophils (%) (Auto) 1 % (0-3) Neutrophils # (Auto) 5.6 x10^3uL (1.8-7.7) Lymphocytes # (Auto) 1.6 x10^3/uL (1.0-4.8) Monocytes # (Auto) 0.5 x10^3/uL (0.0-1.1) Eosinophils # (Auto) 0.1 x10^3/uL (0.0-0.7) Basophils # (Auto) 0.1 x10^3/uL (0.0-0.2) Sodium Level 141 mmol/L (136-145) Potassium Level 3.6 mmol/L (3.5-5.1) Chloride Level 106 mmol/L (98-107) Carbon Dioxide Level 24 mmol/L (21-32) Anion Gap 11 (6-14) Blood Urea Nitrogen 14 mg/dL (7-20) Creatinine 0.8 mg/dL (0.6-1.0) Estimated GFR (Cockcroft-Gault) 74.5 BUN/Creatinine Ratio 18 (6-20) Glucose Level 170 mg/dL (70-99) H Calcium Level 9.2 mg/dL (8.5-10.1) Total Bilirubin 0.2 mg/dL (0.2-1.0) Aspartate Amino Transferase (AST) 8 U/L (15-37) L Alanine Aminotransferase (ALT) 10 U/L (14-59) L Alkaline Phosphatase 73 U/L (46-116) Total Protein 6.7 g/dL (6.4-8.2) Albumin 3.1 g/dL (3.4-5.0) L Albumin/Globulin Ratio 0.9 (1.0-1.7) L Laboratory Tests 12/06/16 12:21 Laboratory Tests 12/06/16 12:21 EKG EKG Interpreted by me: Heart rate 87, sinus rhythm, leftward axis, no acute ST/T- wave abnormalities present [] Radiology/Procedures Radiology/Procedures [facility] [address] [place] [address] IMAGING REPORT Signed PATIENT: ALLISON CLIFTON ACCOUNT: [id number] : 1960 LOCATION: ER AGE: 56 SEX: F EXAM STATUS: PRE ER ORD. PHYSICIAN: BRIAN CARBONE DO REASON: weakness PROCEDURE: CHEST AP ONLY Portable AP upright view CXR: Clinical indications: Weakness. History of stroke. Comparison: November 17, 2016. Findings: No acute lung infiltrate or pleural effusion or pulmonary edema or lung mass or pneumothorax is seen. The heart size, pulmonary vasculature, mediastinum and both an are stable. Impression: No acute radiographic abnormality is seen. DICTATED and SIGNED BY: FARHANA WAN MD DATE: 12/06/16 1242 CC: GOLDEN AADMS MD; BRIAN CARBONE DO; RANJIT MONAE MD ~ [] Course & Med Decision Making Course & Med Decision Making Pertinent Labs and Imaging studies reviewed. (See chart for details) Patient was given DuoNeb, Solu-Medrol, and magnesium in the emergency department. On reevaluation, patient's symptoms have improved and patient's vital signs are stable at this time. Patient's symptoms appear consistent with acute COPD exacerbation. Patient's chest x-ray negative for evidence of pneumonia. Patient will be treated with prednisone taper. Advised to continue on albuterol at home with recommended follow-up in 2-3 days with patient's primary doctor for reevaluation. Advised return to the emergency department for any worsening symptoms. Patient patient's swabber voiced understanding and in agreement with treatment plan. Dragon Disclaimer Dragon Disclaimer This electronic medical record was generated, in whole or in part, using a voice recognition dictation system. Departure Departure Impression: Primary Impression: COPD exacerbation Disposition: HOME, SELF-CARE Condition: IMPROVED Referrals: RANJIT MONAE MD (PCP) Patient Instructions: Chronic Obstructive Pulmonary Disease Exacerbation Additional Instructions: You may use your albuterol inhaler as follows for the next 2 days: 2-3 puffs every 4 hours while awake. Decrease use of albuterol after 2 days to 2-4 puffs every 4 hours as needed. Follow-up with your primary doctor in the next 2-3 days for reevaluation. Return to the emergency department for any worsening symptoms. Scripts Prednisone (PREDNISONE) 10 Mg Tablet 10 MG PO UD for PREDNISONE TAPER, #39 TAB 0 Refills Take 3 tablets by mouth twice a day for 3 days, then take 2 tablets by mouth twice a day for 3 days, then take 1 tablet by mouth twice a day for 3 days, then take 1 tablet by mouth daily x 3 days, then stop. Prov: GOLDEN ADAMS MD 12/06/16 GOLDEN ADAMS MD Dec 06, 2016 13:02
[2016-12-06 14:52] VITALS: BP 132/65
[2016-12-06] MEDS ORDERED: PRED-220 PO (14:52)
--- NOTE | 2016-12-07 09:17 | EKG ---
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
== END 2016-12-06 15:15 | disposition home or self-care (01) ==
LOC: ER 11:04
DX: J44.1 Chronic obstructive pulmonary disease with (acute) exacerbation (principal); E11.9 Type 2 diabetes mellitus without complications; Z86.73 Personal history of transient ischemic attack (TIA), and cerebral infarction without residual deficits; Z85.850 Personal history of malignant neoplasm of thyroid; F41.9 Anxiety disorder, unspecified; Z90.49 Acquired absence of other specified parts of digestive tract; Z90.710 Acquired absence of both cervix and uterus; Z98.890 Other specified postprocedural states; Z98.51 Tubal ligation status; Z88.0 Allergy status to penicillin; Z88.6 Allergy status to analgesic agent; Z88.5 Allergy status to narcotic agent; Z91.041 Radiographic dye allergy status
CPT/HCPCS: 36415; 71010; 80053; 85027; 93005; 94640; 96365; 96375; 99285; J2930; J3475; J7030; J7620

== ENCOUNTER → 2017-02-10 | Outpatient (CLI) | payer OTHER ==
[2017-01-19 11:00] VITALS: BP 126/76
[~2017-02-10] MED LIST changes: -OXYC5TAB PO; +OXYC5TAB95 PO; +PRED-220 PO
--- NOTE | 2017-02-10 17:01 | RAD ---
KUB Indication: Constipation Technique: AP view of the abdomen and pelvis Comparison: KUB from 03/16/2016 Findings: No abnormally dilated bowel loops or air-fluid levels. Right upper quadrant clips suggesting cholecystectomy. Note made of IVC filter. No abnormal calcific densities projecting over the kidneys. Mild diffuse colonic stool burden. Visualized bones are within normal limits. Impression: Mild diffuse colonic stool burden. No abnormally dilated bowel loops suggest bowel obstruction.
== END | disposition home or self-care (01) ==
LOC: RAD 12:08
PROVIDERS: ATTEND Internal Medicine Gastroenterology
DX: K59.00 Constipation, unspecified (principal)
CPT/HCPCS: 74000

== ENCOUNTER 2017-06-28 20:52 | Emergency (ER) | payer OTHER, MEDICARE ==
[2017-06-28] MEDS: IPRATRPIUM/ALBUTEROL 0.5/2.5MG 3 ML NEBU. NEB ×2 (21:39)
[2017-06-28] MEDS: IV NORMAL SALINE 1000ML BAG 1,000 ML IV ×2 (22:11)
[2017-06-28] MEDS: methylPREDNISolone SOD SUCC PF 125 MG/2 ML VIAL. IV ×2 (22:11)
[2017-06-28 22:30] LABS: ADD MAN DIFF? NO
[2017-06-28 22:34] LABS: BASO % 1 % (0-3); EOS # 0.2 x10^3/uL (0.0-0.7); EOS % 3 % (0-3); HEMATOCRIT 35.9 % (36.0-47.0); HEMOGLOBIN 11.9 g/dL (12.0-15.5); LYMPH # 3.3 x10^3/uL (1.0-4.8); LYMPH % 40 % (24-48); MEAN CORPUSCULAR HEMOGLOBIN 24 pg (25-35); MEAN CORPUSCULAR HGB CONC 33 g/dL (31-37); MEAN CORPUSCULAR VOLUME 74 fL (79-100); MONO # 0.6 x10^3/uL (0.0-1.1); MONO % 8 % (0-9); NEUT # 4.1 x10^3uL (1.8-7.7); NEUT % 50 % (31-73); PLATELET COUNT 382 x10^3/uL (140-400); RED BLOOD COUNT 4.88 x10^6/uL (3.50-5.40); WHITE BLOOD COUNT 8.3 x10^3/uL (4.0-11.0)
[2017-06-28 22:45] LABS: ANION GAP 6 (6-14); BLOOD UREA NITROGEN 18 mg/dL (7-20); CALCIUM 8.4 mg/dL (8.5-10.1); CARBON DIOXIDE 28 mmol/L (21-32); CHLORIDE 106 mmol/L (98-107); CREATININE 0.7 mg/dL (0.6-1.0); GFR 86.6; GLUCOSE 123 mg/dL (70-99); POTASSIUM 3.9 mmol/L (3.5-5.1); SODIUM 140 mmol/L (136-145)
[2017-06-28 22:56] LABS: TROPONINI < 0.017 ng/mL (0.000-0.055)
== END 2017-06-29 00:07 | disposition home or self-care (01) ==
LOC: ER 06-29 00:07
DX: J44.1 Chronic obstructive pulmonary disease with (acute) exacerbation (principal); E11.9 Type 2 diabetes mellitus without complications; Z86.73 Personal history of transient ischemic attack (TIA), and cerebral infarction without residual deficits; I25.2 Old myocardial infarction; Z88.0 Allergy status to penicillin; Z88.6 Allergy status to analgesic agent; Z91.041 Radiographic dye allergy status
CPT/HCPCS: 36415; 71045; 80048; 84484; 85025; 93005; 94640; 96361; 96374; 99285-25; J2930; J7030; J7620

== ENCOUNTER → 2017-10-23 | Outpatient (CLI) | payer OTHER ==
[2017-10-23 09:12] LABS: ADD MAN DIFF? NO
[2017-10-23 09:20] LABS: BASO # 0.1 x10^3/uL (0.0-0.2); BASO % 1 % (0-3); EOS # 0.3 x10^3/uL (0.0-0.7); EOS % 4 % (0-3); HEMATOCRIT 38.4 % (36.0-47.0); HEMOGLOBIN 12.9 g/dL (12.0-15.5); LYMPH # 2.9 x10^3/uL (1.0-4.8); LYMPH % 35 % (24-48); MEAN CORPUSCULAR HEMOGLOBIN 26 pg (25-35); MEAN CORPUSCULAR HGB CONC 34 g/dL (31-37); MEAN CORPUSCULAR VOLUME 76 fL (79-100); MONO # 0.7 x10^3/uL (0.0-1.1); MONO % 8 % (0-9); NEUT # 4.2 x10^3uL (1.8-7.7); NEUT % 52 % (31-73); PLATELET COUNT 243 x10^3/uL (140-400); RED BLOOD COUNT 5.03 x10^6/uL (3.50-5.40); RED CELL DISTRIBUTION WIDTH 15.3 % (11.5-14.5); WHITE BLOOD COUNT 8.1 x10^3/uL (4.0-11.0)
[2017-10-23 09:40] LABS: ALBUMIN 3.3 g/dL (3.4-5.0); ALK PHOS 105 U/L (46-116); ALT (SGPT) 21 U/L (14-59); ANION GAP 9 (6-14); AST (SGOT) 15 U/L (15-37); BLOOD UREA NITROGEN 17 mg/dL (7-20); BUN/CREATININE RATIO 21 (6-20); CALCIUM 8.7 mg/dL (8.5-10.1); CARBON DIOXIDE 25 mmol/L (21-32); CHLORIDE 109 mmol/L (98-107); CHOLESTEROL 190 mg/dL (0-200); CREATININE 0.8 mg/dL (0.6-1.0); GFR 74.2; GLUCOSE 112 mg/dL (70-99); HDLC 38 mg/dL (40-60); LDLC 135 mg/dL (0-100); NON-HDL CHOLESTEROL 152 mg/dL (0-129); POTASSIUM 4.3 mmol/L (3.5-5.1); SODIUM 143 mmol/L (136-145); TOTAL BILIRUBIN 0.2 mg/dL (0.2-1.0); TOTAL PROTEIN 6.5 g/dL (6.4-8.2); TRIGLYCERIDES 86 mg/dL (0-150); VLDLC 17 mg/dL (0-40)
[2017-10-23 09:48] LABS: THYROID STIM HORMONE (TSH) 0.025 uIU/mL (0.358-3.74)
[2017-10-23 18:15] LABS: HEMOGLOBIN A1C 5.7 % (4.8-5.6)
== END | disposition home or self-care (01) ==
LOC: LAB 08:39
DX: E11.9 Type 2 diabetes mellitus without complications (principal); E03.9 Hypothyroidism, unspecified; D50.9 Iron deficiency anemia, unspecified; E78.2 Mixed hyperlipidemia
CPT/HCPCS: 36415; 80053; 80061; 83036; 84443; 85025

== ENCOUNTER → 2018-03-19 | Outpatient (CLI) | payer OTHER ==
[2017-06-28 23:00] VITALS: BP 138/67
[~2018-03-19] MED LIST changes: -ASPI81TA44 PO; +ASPI81TA59 PO; +AZIT1PAC PO; +METF500T16 PO; -METF500T4 PO; -METO50TA2 PO; +METO50TA6 PO
== END | disposition home or self-care (01) ==
LOC: LAB 09:45
PROVIDERS: ATTEND Nurse Practitioner Family
DX: E03.9 Hypothyroidism, unspecified (principal)
CPT/HCPCS: 36415; 84443

== ENCOUNTER → 2019-03-23 | Outpatient (CLI) | payer OTHER, MEDICAID ==
[2017-06-28 23:00] VITALS: BP 138/67
[~2019-03-23] MED LIST changes: -GLIM2TAB2 PO; +GLIM2TAB3 PO; -HYDR-2758 PO; +HYDR-2761 PO; -HYDR-2762 PO; +HYDR-2765 PO; +HYDR-3164 PO; -HYDR-971 PO; -HYDR12.53 PO; +HYDR12.575 PO; +MONT10TA49 PO; -MONT10TA9 PO; +OMEP40CA45 PO; -OMEP40CA5 PO; +OXYC5TAB4 PO; -OXYC5TAB95 PO; +SIMV20TA18 PO; -SIMV20TA3 PO
--- NOTE | 2019-03-24 12:06 | RAD ---
DATE: 03/23/2019 EXAM: MAMMO CHRIS SCREENING BILATERAL HISTORY: Routine screening COMPARISON: None available. The previous mammogram was performed more than 10 years ago. This study was interpreted with the benefit of Computerized Aided Detection (CAD). Breast Density: SCATTERED The breast parenchyma shows scattered fibroglandular densities. Breast parenchyma level B. FINDINGS: Benign calcifications are present. Right upper outer breast lymph node appears to be present. At the anterior aspect of the left upper-outer breast 2.2 cm from the nipple, there is a mildly lobulated mass measuring up to 0.8 cm in maximum dimension. No suspicious calcification or distortion. IMPRESSION: Indeterminate left upper-outer breast mass. Right upper-outer breast lesion which probably represents a lymph node. BI-RADS CATEGORY: 0 INCOMPLETE: NEEDS ADDITIONAL IMAGING EVALUATION AND/OR PRIOR MAMMOGRAMS FOR COMPARISON. RECOMMENDED FOLLOW-UP: ADD ADDITIONAL IMAGING. Bilateral upper outer breast ultrasound examination recommended. PQRS compliance statement: Patient information was entered into a reminder system with a target due date for the next mammogram. Mammography is a sensitive method for finding small breast cancers, but it does not detect them all and is not a substitute for careful clinical examination. A negative mammogram does not negate a clinically suspicious finding and should not result in delay in biopsying a clinically suspicious abnormality. "Our facility is accredited by the [employer] Mammography Program."
== END | disposition home or self-care (01) ==
LOC: MAMMO 10:03
PROVIDERS: ATTEND Family Medicine
DX: Z12.31 Encounter for screening mammogram for malignant neoplasm of breast (principal); N64.89 Other specified disorders of breast
CPT/HCPCS: 77063; 77067

== ENCOUNTER → 2019-11-30 | Outpatient (CLI) | payer OTHER, MEDICAID ==
[2017-06-28 23:00] VITALS: BP 138/67
[~2019-11-30] MED LIST changes: -GLIM2TAB3 PO; +GLIM2TAB7 PO
--- NOTE | 2019-11-30 15:28 | RAD ---
EXAM: Bilateral breast ultrasound. HISTORY: Indeterminate findings on prior screening mammography. Ultrasound is requested. COMPARISON: 03/23/2019. FINDINGS: The patient returns for bilateral breast ultrasound following mammography of 03/23/2019. On the right, the mammographic finding in the axillary tail corresponds with a benign-appearing lymph node that measures 8 x 7 x 5 mm at the 9:00 position 11 cm from the nipple. Elsewhere at the 10:00 position 8 cm from the nipple, a tiny 3 x 2 mm nodule is consistent with a benign complicated cyst. Images of the right axilla revealed no suspicious appearing lymph nodes. On the left, the nodule of concern corresponds with a 7 x 4 x 6 mm cyst containing a thin septation. There is no suspicious sonographic finding. Images of the left axilla reveal no suspicious lymph nodes. IMPRESSION: 1. BI-RADS Category 2: Benign findings. 2. Recommend bilateral screening mammography in March 2020. Electronically signed by: Virginia Pickering MD (11/30/2019 3:25 PM) [id number]
== END | disposition home or self-care (01) ==
LOC: US 14:00
PROVIDERS: ATTEND Family Medicine
DX: R92.8 Other abnormal and inconclusive findings on diagnostic imaging of breast (principal); N63.13 Unspecified lump in the right breast, lower outer quadrant; N63.11 Unspecified lump in the right breast, upper outer quadrant; N60.02 Solitary cyst of left breast
CPT/HCPCS: 76641-50